=== PATIENT | female | born 1950 | race Caucasian/White ===

== ENCOUNTER 2020-06-05 06:11 | Outpatient (REF) | payer MEDICARE, SELFPAY ==
[2020-06-05 06:58] LABS: MANUAL DIFF FLAG NO
[2020-06-05 07:05] LABS: Basophils Absolute Auto 0.1 X10*3/uL (0.0-0.2); Basophils Percent Auto 0.9 % (0-2); Eosinophils Absolute Auto 0.5 X10*3/uL (0.0-0.4); Eosinophils Percent Auto 7.6 % (0-4); Hematocrit 41.1 % (37-47); Hemoglobin 14.1 g/dl (12.0-16.0); Imm Gran Abs Auto 0.02 X10*3/uL (0.00-0.03); Imm Gran Pct Auto 0.3 % (0.0-0.4); Lymphocytes Absolute Auto 2.9 X10*3/uL (1.2-4.9); Lymphocytes Percent Auto 43.2 % (20-40); Mean Corpuscular HGB Conc 34.3 g/dl (31.0-35.0); Mean Corpuscular Hemoglobin 31.5 pg (27.0-33.0); Mean Corpuscular Volume 91.9 fL (80-98); Mean Platelet Volume 10.2 fL (9.4-12.3); Monocytes Absolute Auto 0.7 X10*3/uL (0.1-1.2); Monocytes Percent Auto 10.8 % (2-11); Neutrophils Absolute Auto 2.5 X10*3/uL (2.0-8.3); Neutrophils Percent Auto 37.2 % (45-73); Platelet Count 396 X10*3/uL (160-400); Red Blood Count 4.47 X10*6/uL (4.20-5.50); Red Cell Distribution Width 12.5 % (11.0-16.0); White Blood Count 6.7 X10*3/uL (4.8-10.8)
[2020-06-05 07:09] LABS: Glucose Urine UA NEG (NEG); Leukocyte Esterase Urine NEG (NEG); Nitrite Urine NEG (NEG); PH 5.5 (5.0-8.0); Urine Blood 1+ (NEG); Urine Ketones NEG (NEG); Urine Protein NEG (NEG-TRACE)
[2020-06-05 07:12] LABS: Appearance Urine CLEAR; Color Urine YELLOW
[2020-06-05 07:16] LABS: Squamous Epithelial Cell Urine TRACE /LPF; WBC Urine 0-2 /HPF (0-4)
[2020-06-05 07:41] LABS: Alanine Aminotransferase 18 U/L (0-31); Albumin Level 4.3 g/dL (3.5-5.0); Alkaline Phosphatase 45 U/L (39-117); Anion Gap 13 (12-20); Aspartate Amino Transferase 22 U/L (5-31); Bilirubin Total 0.7 mg/dL (0.0-1.0); Blood Urea Nitrogen 11 mg/dL (9-16); Calcium 9.6 mg/dL (8.4-10.2); Carbon Dioxide 29 mmol/L (22-29); Chloride 101 mmol/L (96-108); Cholesterol 204 mg/dL; Estimated Glomerular Filt Rate > 60; Glucose Random 88 mg/dL (60-115); HDL Cholesterol 57 mg/dL; LDL Cholesterol Calculated 117 mg/dl; Potassium 3.8 mmol/L (3.3-5.1); Sodium 139 mmol/L (135-145); Total Protein 7.2 g/dL (6.5-8.0); Triglycerides 151 mg/dL
[2020-06-05 08:03] LABS: Free T4 (Free Thyroxine) 0.97 ng/dL (0.71-1.85); Thyroid Stimulating Hormone 3.42 uIU/mL (0.32-4.0); Vitamin D 25-OH Total 46.4 ng/mL (>30)
[2020-06-05 09:03] LABS: Folate 6.1 ng/mL (> or = 4.0); Vitamin B12 315 pg/mL (200-900)
== END 2020-06-05 06:12 | disposition home or self-care (01) ==
LOC: HO.LAB 06:11
PROVIDERS: PCP Internal Medicine; Visit Provider Internal Medicine
DX: E78.00 Pure hypercholesterolemia, unspecified (principal); H81.10 Benign paroxysmal vertigo, unspecified ear
CPT/HCPCS: 36415; 80053; 80061; 81001; 82306; 82607; 82746; 84439; 84443; 85025

== ENCOUNTER 2020-07-17 06:02 | Outpatient (REF) | payer MEDICARE, SELFPAY ==
--- NOTE | ~2020-07-17 | XR_ITS ---
EXAMINATION: XR ABDOMEN KUB CLINICAL INDICATION: Hematuria COMPARISON: Lumbar spine x-ray October 2008 TECHNIQUE: AP view of the abdomen. FINDINGS: Evaluation for renal stone is limited due to overlying bowel gas. No renal stone is seen. There is a 3 x 5 mm density to the right of the superior endplate of the L4 vertebral body above the transverse process. This is not seen on previous lumbar spine MRI x-ray October 2008. This has a lucent center and is more suggestive of a phlebolith than stone. There are bilateral pelvic calcifications probably representing calcified phleboliths. There is stool throughout the colon. There are no dilated loops of bowel. Bony structures are unremarkable. XR/XR KUB IMPRESSION: 3 x 5 mm calcification to the right of the L4 vertebral body questionable for phlebolith versus right ureteral stone. Small pelvic calcifications probably representing calcified phleboliths.
[2020-07-17 07:12] LABS: Urine Cytology See Pathology rpt
[2020-07-17 07:29] LABS: Glucose Urine UA NEG (NEG); Leukocyte Esterase Urine 1+ (NEG); Nitrite Urine NEG (NEG); Specific Gravity - Urine 1.015 (1.005-1.025); Urine Blood 1+ (NEG); Urine Ketones NEG (NEG); Urine Protein NEG (NEG-TRACE)
[2020-07-17 07:30] LABS: Appearance Urine CLEAR; Color Urine YELLOW
[2020-07-17 07:39] LABS: Squamous Epithelial Cell Urine TRACE /LPF
== END 2020-07-17 06:03 | disposition home or self-care (01) ==
LOC: HO.LAB 06:02
PROVIDERS: PCP Internal Medicine; Visit Provider Internal Medicine
DX: R31.9 Hematuria, unspecified (principal)
CPT/HCPCS: 74018; 81001; 88112

== ENCOUNTER → 2020-07-29 08:33 | Outpatient (REF) | payer MEDICARE, SELFPAY ==
--- NOTE | 2020-07-29 08:36 | CA_ITS ---
Acquisition Time: 2020-07-29 08:46:33 Total Exercise Time: 00:05:02 Test Indications: DIZZINESS Medications: ATROVASTIN Protocol: MARVIN Max HR: 155 BPM 104% of Pred: 148 BPM Max BP: 130/070 mmHG Max Work Load: 5.5 METS Exercise stress test using Marvin protocol, total of 5 min 2 sec. Pt. c/o SOB and dizziness in peak exercise. No CP. EKG without arrhythmias, no ischemic changes, however pt's dizzines and dyspnea should be further investigated. Normotensive response to exercise. Test reviewed with Dr. Mckinney. Referred By: Tiffany Hinson Overread By: Halle Ackerman NP
== END ==
LOC: HO.CARD 08:33
PROVIDERS: PCP Internal Medicine; Visit Provider Internal Medicine
DX: R42 Dizziness and giddiness (principal)
CPT/HCPCS: 93017; 93018

== ENCOUNTER → 2020-10-09 08:03 | Outpatient (REF) | payer MEDICARE, SELFPAY ==
--- NOTE | 2020-10-09 08:10 | CA_ITS ---
Transthoracic Echocardiogram Patient (Last, First, Middle): Renetta Law A Gender: Female Date of : 1950 Age: 70 Procedure Date: 10/09/2020 Procedure Type: Transthoracic Echocardiogram Location: OP Height: 160.02 cm Weight: 61.23 kg BSA: 1.64 m2 Heart Rate: bpm BP: 116 / 66 mmHg Cardiology Manager: Referring MD: Tiffany Hinson MD Symptoms: R42 - Dizziness and giddiness Study Quality: Good ECG Rhythm: Sinus Conclusions: - The left ventricular systolic function is normal. The visually estimated ejection fraction is between 60-65%. - There is mild aortic valve regurgitation. Findings Left Ventricle Normal left ventricular cavity size. There is normal left ventricular wall thickness. The left ventricular systolic function is normal. The visually estimated ejection fraction is between 60-65%. There is no evidence of regional wall motion abnormalities. Diastolic function is normal for age. Right Ventricle Normal right ventricular cavity size and systolic function. Atria Both atria are normal in size. There is a prominent eustachian valve. (normal variant). Aortic Valve The aortic valve was not well visualized. There is no aortic valve stenosis. There is mild aortic valve regurgitation. Mitral Valve The mitral valve appears normal. There is trace mitral valve regurgitation. There is no mitral valve stenosis. Pulmonic Valve The pulmonic valve was not well visualized. Tricuspid Valve Normal tricuspid valve structure. There is trace tricuspid valve regurgitation. The pulmonary artery systolic pressure is normal. Great Vessels The asc aorta is normal in size. Venous The inferior vena cava is normal in size and collapses greater than 50% with inspiration. Pericardium/Pleural There is no evidence of pericardial effusion. Prior Study Comparison No prior study available for comparison. Measurements 2D Linear Measurements IVSd: 1.02 0.6-0.9/0.6-1.0 cm LVIDd: 3.41 3.9-5.3/4.2-5.9 cm LVIDs: 2.24 2.0-3.6 cm LVPWd: 0.96 0.7-1.1 cm Ao Root: 3.05 2.1-3.5 cm LV Mass: 121.10 67-162/88-224 g LVOT Diam: 1.97 3.0+(-)1.3 cm Mitral Valve MV Pk E: 0.63 MV PK A: 0.69 MV Decel Time: 258.81 E/A: 0.92 E'Lateral: 0.09 E'Medial: 0.08 Decel [place]: 2.45 Aortic Valve AoV Pk Massimo: 1.19 AoV Mn Massimo: 0.91 AoV VTI: 0.32 AoV Pk Grad: 5.68 Aov Mn Grad: 3.75 LVOT LVOT Pk Massimo: 0.92 LVOT Mn Massimo: 0.55 LVOT VTI: 0.23 LVOT Pk Grad: 3.36 LVOT Mn Grad: 1.52 LVOT Diam: 1.97 LVOT Area: 3.06 Diastolic Function MV Pk E: 0.63 MV Pk A: 0.69 E/A: 0.92 E'Medial: 0.08 E' Laterial: 0.09 Tricuspid Valve TR Pk Massimo: 2.25 TR Pk Grad: 20.23 RA Press: 3.00 RVSP: 23.00 Great Vessels Aorta Ao Root-2D: 3.05 2.0-3.7 cm Pulmonary Valve PV Pk Massimo: 0.98 Peak PV Grad: 3.85 Updated in Other Vendor System with Status of Final Hero Fuentes MD electronically signed on 10/09/2020 11:23:29 AM with status of Final
== END ==
LOC: HO.CARD 08:03
PROVIDERS: PCP Internal Medicine; Visit Provider Internal Medicine
DX: R42 Dizziness and giddiness (principal)
CPT/HCPCS: 93306

== ENCOUNTER 2021-01-21 10:45 | Outpatient (REF) | payer MEDICARE, SELFPAY ==
--- NOTE | ~2021-01-21 | XR_ITS ---
EXAMINATION: XR CHEST CLINICAL INFORMATION: Calculus of kidney. COMPARISON: None TECHNIQUE: 2 views of the chest were obtained. FINDINGS: No significant abnormality is noted involving the heart, lungs, mediastinum, bony thorax or soft tissues. Surgical clips are noted in the left axilla. XR/XR chest 2V IMPRESSION: No acute intrathoracic disease.
== END 2021-01-21 10:46 | disposition home or self-care (01) ==
LOC: HO.XRAY 10:45
PROVIDERS: PCP Internal Medicine; Visit Provider Internal Medicine
DX: N20.0 Calculus of kidney (principal)
CPT/HCPCS: 71046

== ENCOUNTER 2021-02-07 07:49 | Outpatient (REF) | payer MEDICARE, SELFPAY ==
--- NOTE | ~2021-02-07 | US_ITS ---
EXAMINATION: US RETROPERITONEAL LIMITED (RENAL ONLY) CLINICAL INFORMATION: Calculus of kidney. COMPARISON: KUB 07/17/2020. TECHNIQUE: Real-time imaging of the kidneys. FINDINGS: RIGHT KIDNEY: 10.1 x 5.6 x 5.1 cm (SAG x AP x TRV). The kidney is normal in size, contour, and echogenicity. Renal cortical thickness is normal. No calculi or focal parenchymal lesions. No hydronephrosis. LEFT KIDNEY: 10.3 x 6.0 x 4.2 cm (SAG x AP x TRV). The kidney is normal in size, contour, and echogenicity. Renal cortical thickness is normal. No calculi or focal parenchymal lesions. No hydronephrosis. US/US renal BI IMPRESSION: Normal renal ultrasound.
== END 2021-02-07 07:50 | disposition home or self-care (01) ==
LOC: HO.US 07:49
PROVIDERS: PCP Internal Medicine; Visit Provider Internal Medicine
DX: N20.0 Calculus of kidney (principal)
CPT/HCPCS: 76775

== ENCOUNTER 2021-05-02 09:34 | Outpatient (REF) | payer MEDICARE, SELFPAY | END 2021-05-02 09:35 | disposition home or self-care (01) | LOC: HO.MAMMO 09:34 | PROVIDERS: PCP Internal Medicine; Visit Provider Internal Medicine | DX: Z13.89 Encounter for screening for other disorder (principal) ==

== ENCOUNTER 2021-05-23 06:24 | Outpatient (REF) | payer MEDICARE, SELFPAY ==
[2021-05-23 06:41] LABS: MANUAL DIFF FLAG NO
[2021-05-23 07:10] LABS: Basophils Absolute Auto 0.1 X10*3/uL (0.0-0.2); Basophils Percent Auto 0.8 % (0-2); Eosinophils Absolute Auto 0.3 X10*3/uL (0.0-0.4); Eosinophils Percent Auto 3.7 % (0-4); Hematocrit 38.3 % (37.0-47.0); Hemoglobin 12.9 g/dl (12.0-16.0); Imm Gran Abs Auto 0.03 X10*3/uL (0.00-0.03); Imm Gran Pct Auto 0.4 % (0.0-0.4); Lymphocytes Absolute Auto 2.9 X10*3/uL (1.2-4.9); Lymphocytes Percent Auto 37.5 % (20-40); Mean Corpuscular HGB Conc 33.7 g/dl (31.0-35.0); Mean Corpuscular Hemoglobin 31.6 pg (27.0-33.0); Mean Corpuscular Volume 93.9 fL (80.0-98.0); Mean Platelet Volume 9.2 fL (9.4-12.3); Monocytes Absolute Auto 0.8 X10*3/uL (0.1-1.2); Monocytes Percent Auto 9.7 % (2-11); Neutrophils Absolute Auto 3.7 x10*3/uL (2.0-8.3); Neutrophils Percent Auto 47.9 % (45-73); Platelet Count 400 X10*3/uL (160-400); Red Blood Count 4.08 X10*6/uL (4.20-5.50); Red Cell Distribution Width 12.5 % (11.0-16.0); White Blood Count 7.8 X10*3/uL (4.8-10.8)
[2021-05-23 07:27] LABS: Alanine Aminotransferase 14 U/L (0-31); Alkaline Phosphatase 49 U/L (39-117); Anion Gap 13 (12-20); Aspartate Amino Transferase 17 U/L (5-31); Bilirubin Total 0.4 mg/dL (0.0-1.0); Blood Urea Nitrogen 12 mg/dL (9-16); Calcium 10.1 mg/dL (8.4-10.2); Carbon Dioxide 30 mmol/L (22-29); Chloride 101 mmol/L (96-108); Cholesterol 220 mg/dL; Estimated Glomerular Filt Rate > 60; Glucose Random 92 mg/dL (60-115); HDL Cholesterol 55 mg/dL; LDL Cholesterol Calculated 144 mg/dl; Potassium 4.6 mmol/L (3.3-5.1); Sodium 139 mmol/L (135-145); Total Protein 6.8 g/dL (6.5-8.0); Triglycerides 108 mg/dL
[2021-05-23 07:39] LABS: Appearance Urine CLEAR; Color Urine YELLOW; Glucose Urine UA NEG (NEG); Leukocyte Esterase Urine NEG (NEG); Nitrite Urine NEG (NEG); PH 6.5 (5.0-8.0); Specific Gravity - Urine <= 1.005 (1.005-1.025); Urine Blood 1+ (NEG); Urine Ketones NEG (NEG); Urine Protein NEG (NEG-TRACE)
[2021-05-23 07:50] LABS: Free T4 (Free Thyroxine) 0.89 ng/dL (0.71-1.85); Thyroid Stimulating Hormone 3.52 uIU/mL (0.32-4.0); Vitamin D 25-OH Total 32.9 ng/mL (>30)
[2021-05-23 08:00] LABS: Squamous Epithelial Cell Urine TRACE /LPF; WBC Urine 0-2 /HPF (0-4)
[2021-05-23 09:40] LABS: Folate 6.2 ng/mL (> or = 4.0); Vitamin B12 991 pg/mL (200-900)
== END 2021-05-23 06:25 | disposition home or self-care (01) ==
LOC: HO.LAB 06:24
PROVIDERS: PCP Internal Medicine; Visit Provider Internal Medicine
DX: E78.00 Pure hypercholesterolemia, unspecified (principal)
CPT/HCPCS: 36415; 80053; 80061; 81001; 82306; 82607; 82746; 84439; 84443; 85025

== ENCOUNTER 2021-06-20 08:08 | Outpatient (REF) | payer MEDICARE, SELFPAY ==
--- NOTE | ~2021-06-20 | MM_ITS ---
EXAMINATION: BONE DENSITOMETRY CLINICAL INDICATION: Other specified disorders of bone density and structure, unspecified site. COMPARISON: Previous BD dated 06/14/2019 and baseline BD dated 05/09/2015. TECHNIQUE: Using a Original DXA System (software version: 13.1) manufactured by [employer], dual-energy x-ray absorptiometry was performed of the lumbar spine and left hip. The images are of good technical quality. Summary results are attached. FINDINGS: AP SPINE L1-L4: Current: BMD 0.966 g/cm2, Z-score 0.1, T-score -1.8, osteopenia, 1.3% increase from previous, 9.5% increase from baseline (<5% change is not significant). Prior: BMD 0.954 g/cm2. Baseline: BMD 0.882 g/cm2. LEFT FEMUR, NECK: Current: BMD 0.902 g/cm2, Z-score 0.9, T-score -1.0, normal. Prior: BMD 0.891 g/cm2. Baseline: BMD 0.856 g/cm2. LEFT FEMUR, TOTAL: Current: BMD 0.922 g/cm2, Z-score 1.0, T-score -0.7, normal, 2.7% increase from previous, 6.3% increase from baseline (<5% change is not significant). Prior: BMD 0.898 g/cm2. Baseline: BMD 0.867 g/cm2. IDENTIFIED RISK FACTORS: Menopause. Hysterectomy. Bilateral oophorectomy. HISTORY OF FRACTURE: None listed. MEDICATIONS: Bisphosphonates. MM/XR DEXA axial skeleton IMPRESSION: 1. DIAGNOSIS: Osteopenia based on the lowest T-score value of -1.8 in the lumbar spine applying World Health Organization criteria. 2. 10-YEAR FRACTURE RISK PREDICTION, FRAX: Major osteoporotic fracture (clinical spine, forearm, hip or shoulder) 9.1%. Hip fracture 1.2%. 3. Treatment Recommendations: NOF guidelines recommend consideration for treatment in postmenopausal women and men age 50 and older presenting with the following: -A hip or vertebral (clinical or morphometric) fracture. -T-score less than or equal to -2.5 at the femoral neck or spine after appropriate evaluation to exclude secondary causes. -Low bone mass at the hip or spine and a 10-year fracture probability by FRAX of greater than or equal to 3% for hip fracture or greater than or equal to 20% for major osteoporotic fracture based on the [place] adapted WHO algorithm. 4. Other Recommendations: All treatment decisions require clinical judgment and consideration of individual patient factors, including patient preferences, comorbidities, previous drug use, risk factors not captured in the FRAX model (e.g. frailty, falls, vitamin D deficiency, increased bone turnover, interval significant decline in bone density) and possible under or overestimation of fracture risk by FRAX. Additional medical evaluation for secondary cause of low bone mineral density may be appropriate. FUTURE SCAN RECOMMENDATION: People with diagnosed cases of osteoporosis or at high risk for fracture should have regular bone mineral density tests. For patients eligible for Medicare, routine testing is allowed once every 2 years. The testing frequency can be increased to one year for patients who have rapidly progressing disease, those who are receiving or discontinuing medical therapy to restore bone mass, or have additional risk factors.
== END 2021-06-20 08:09 | disposition home or self-care (01) ==
LOC: HO.MAMMO 08:08
PROVIDERS: Visit Provider Internal Medicine
DX: M81.0 Age-related osteoporosis without current pathological fracture (principal); Z78.0 Asymptomatic menopausal state; Z90.722 Acquired absence of ovaries, bilateral; Z90.710 Acquired absence of both cervix and uterus
CPT/HCPCS: 77080

== ENCOUNTER 2022-05-06 06:33 | Outpatient (REF) | payer MEDICARE, SELFPAY ==
[2022-05-06 06:48] LABS: MANUAL DIFF FLAG NO
[2022-05-06 07:26] LABS: Basophils Absolute Auto 0.1 X10*3/uL (0.0-0.2); Basophils Percent Auto 1.1 % (0-2); Eosinophils Absolute Auto 0.2 X10*3/uL (0.0-0.4); Eosinophils Percent Auto 3.6 % (0-4); Hemoglobin 13.2 g/dl (12.0-16.0); Imm Gran Abs Auto 0.01 X10*3/uL (0.00-0.03); Imm Gran Pct Auto 0.2 % (0.0-0.4); Lymphocytes Absolute Auto 2.7 X10*3/uL (1.2-4.9); Lymphocytes Percent Auto 42.2 % (20-40); Mean Corpuscular HGB Conc 33.8 g/dl (31.0-35.0); Mean Corpuscular Hemoglobin 30.8 pg (27.0-33.0); Mean Corpuscular Volume 91.1 fL (80.0-98.0); Mean Platelet Volume 9.7 fL (9.4-12.3); Monocytes Absolute Auto 0.7 X10*3/uL (0.1-1.2); Monocytes Percent Auto 10.9 % (2-11); Neutrophils Absolute Auto 2.7 x10*3/uL (2.0-8.3); Platelet Count 384 X10*3/uL (160-400); Red Blood Count 4.28 X10*6/uL (4.20-5.50); Red Cell Distribution Width 12.8 % (11.0-16.0); White Blood Count 6.4 X10*3/uL (4.8-10.8)
[2022-05-06 07:55] LABS: Alanine Aminotransferase 14 U/L (0-31); Albumin Level 4.2 g/dL (3.5-5.0); Alkaline Phosphatase 51 U/L (39-117); Anion Gap 14 (12-20); Aspartate Amino Transferase 17 U/L (5-31); Bilirubin Total 0.6 mg/dL (0.0-1.0); Blood Urea Nitrogen 14 mg/dL (9-16); Calcium 9.7 mg/dL (8.4-10.2); Carbon Dioxide 24 mmol/L (22-29); Chloride 105 mmol/L (96-108); Cholesterol 221 mg/dL; Estimated Glomerular Filt Rate 57; Glucose Random 83 mg/dL (60-115); HDL Cholesterol 59 mg/dL; LDL Cholesterol Calculated 142 mg/dl; Sodium 139 mmol/L (135-145); Total Protein 6.9 g/dL (6.5-8.0); Triglycerides 102 mg/dL
[2022-05-06 08:03] LABS: Appearance Urine Clear; Color Urine Yellow; Glucose Urine UA Negative (Negative); Leukocyte Esterase Urine Moderate (2+) (Negative); Nitrite Urine Negative (Negative); Specific Gravity - Urine 1.015 (1.005-1.025); UMIC TRIGGER UA YES; Urine Blood Small (1+) (Negative); Urine Ketones Negative (Negative); Urine Protein Negative (Neg-Trace)
[2022-05-06 08:22] LABS: Bacteria Urine None Seen (None Seen); Hyaline Casts Urine 0-2 /LPF (0-2); Squamous Epithelial Cell Urine 0-2 /HPF (0-2); WBC Urine 0-5 /HPF (0-5)
[2022-05-06 08:25] LABS: Folate 5.3 ng/mL (> or = 4.0); Free T4 (Free Thyroxine) 1.01 ng/dL (0.71-1.85); Thyroid Stimulating Hormone 3.81 uIU/mL (0.32-4.0); Vitamin B12 906 pg/mL (200-900); Vitamin D 25-OH Total 32.7 ng/mL (>30)
== END 2022-05-06 06:34 | disposition home or self-care (01) ==
LOC: HO.LAB 06:33
PROVIDERS: PCP Internal Medicine; Referring Provider Internal Medicine Rheumatology; Visit Provider Internal Medicine
DX: E78.00 Pure hypercholesterolemia, unspecified (principal)
CPT/HCPCS: 36415; 80053; 80061; 81001; 82306; 82607; 82746; 84439; 84443; 85025

== ENCOUNTER 2022-06-03 14:42 | Outpatient (REF) | payer MEDICARE, SELFPAY ==
[2022-06-03 16:23] LABS: Urine Cytology See Pathology rpt
== END 2022-06-03 14:43 | disposition home or self-care (01) ==
LOC: HO.LAB 14:42
PROVIDERS: PCP Internal Medicine; Visit Provider Urology
DX: R31.9 Hematuria, unspecified (principal)
CPT/HCPCS: 51798; 88112; 99202

== ENCOUNTER 2022-06-24 10:14 | Outpatient (REF) | payer MEDICARE, SELFPAY ==
--- NOTE | ~2022-06-24 | CT_ITS ---
EXAMINATION: CT ABDOMEN AND PELVIS WITHOUT AND WITH CONTRAST CLINICAL INFORMATION: Hematuria COMPARISON: None available. TECHNIQUE: Multidetector volumetric imaging was performed of the superior aspects of the kidneys and pelvis before and after the IV administration of 85 mL of Omnipaque 350 intravenous contrast. Sagittal and coronal reformatted images were obtained on the technologist's workstation. This CT examination was performed using dose optimization techniques as appropriate, variously including the following: *Automated exposure control *Adjustment of mA and/or kV according to patient size (this includes techniques or standardized protocols for targeted exams where dose is matched to indication/reason for exam; i.e. extremities or head) *Use of iterative reconstruction technique DLP: 662 mGy-cm FINDINGS: LUNG BASES: The visualized lung bases are unremarkable. LIVER, GALLBLADDER, AND BILIARY TREE: Visualized portions of the liver are unremarkable. The gallbladder is unremarkable with no evidence of radiopaque gallstones, gallbladder wall thickening, or obvious pericholecystic inflammatory changes. PANCREAS: Unremarkable SPLEEN: Visualized portions of the spleen are unremarkable. ADRENAL GLANDS: Unremarkable KIDNEYS AND URETERS: No hydronephrosis or nephrolithiasis. No abnormal mass or obstructing lesion along the course of the ureters. Bilateral renal collecting systems. BLADDER: Decompressed. GASTROINTESTINAL TRACT: Colonic diverticulosis no CT findings of diverticulitis. Appendix is within normal limits. ABDOMINAL WALL: No significant hernia is appreciated. LYMPH NODES: Normal VASCULAR: Atherosclerotic calcifications, no aneurysmal dilation. PELVIC VISCERA: Unremarkable OSSEOUS STRUCTURES: Degenerative changes of the spine. CT/CT abdomen pelvis wo/w IV con IMPRESSION: No hydronephrosis or nephrolithiasis. No abnormal mass or obstructing lesion along the course of the ureters. Please note, this negative study does not obviate the need for cystoscopy if clinically warranted.
[2022-06-24] MEDS: iohexoL 350 MG/ML 100 ML INFUS..BTL IV (12:04)
[2022-06-24 12:20] LABS: Creatinine POC 0.9 mg/dL (0.5-1.4); GFR POC > 60
== END 2022-06-24 10:15 | disposition home or self-care (01) ==
LOC: HO.CT 10:14
PROVIDERS: PCP Internal Medicine; Visit Provider Urology
DX: R31.9 Hematuria, unspecified (principal)
CPT/HCPCS: 74178; 82565; Q9967

== ENCOUNTER → 2022-07-24 13:19 | Outpatient (BNVA) | payer MEDICARE, SELFPAY | PROVIDERS: PCP Internal Medicine; Visit Provider Urology | DX: N95.2 Postmenopausal atrophic vaginitis (principal); R31.29 Other microscopic hematuria | CPT/HCPCS: 52000 ==

== ENCOUNTER 2023-02-10 09:09 | Outpatient (AMB) | payer MEDICARE, SELFPAY ==
--- NOTE | 2023-02-10 09:20 | AM.OFFVISNUR ---
Intake Intake Visit Reasons: flu Shot Allergies No Known Allergies Allergy (Verified 07/24/22 13:32) Office Procedures Flu Questionnaire Does the patient have a severe egg allergy?: No Does the patient have severe life threatening allergies?: No Does the patient have a fever or illness today?: No Has the patient ever had Guillain-Matamoras Syndrome?: No Has the patient ever had any past reaction to a flu shot?: No Immunizations flu vacc [id number] 6mos up(PF) 60 mcg(15 mcgx4)/0.5 mL IM syringe Performing Provider: Tiffany Hinson MD Performing Location: [facility] Administered by: Yanique Hill RN on 02/10/23 09:20 Dose Route Admin Location Dispensed Lot Number Expiration Date NDC Guillotine Trimmer 0.5 mL IM Right Deltoid 0.5 mL [id number] 10/03/23 35843-764-25 [employer] VIS Given Date VIS Provided VIS Publication Date 02/10/23 Single Vaccine 20 Eligibility Eligibility Date Funding Source Not [facility] Eligible 02/10/23 Private Coding Assessment & Plan Assessment & Plan Orders: Orders Influenza [id number] Immunization Today Z23 - Encounter for immunization
== END 2023-02-10 09:21 | disposition home or self-care (01) ==
PROVIDERS: PCP Internal Medicine; Visit Provider Internal Medicine
DX: Z23 Encounter for immunization (principal)
CPT/HCPCS: 90471; 90686

== ENCOUNTER 2023-04-22 06:49 | Outpatient (REF) | payer MEDICARE, SELFPAY ==
[2023-04-22 06:57] LABS: MANUAL DIFF FLAG NO
[2023-04-22 07:46] LABS: Basophils Absolute Auto 0.1 X10*3/uL (0.0-0.2); Basophils Percent Auto 0.8 % (0-2); Eosinophils Absolute Auto 0.2 X10*3/uL (0.0-0.4); Eosinophils Percent Auto 2.5 % (0-4); Hematocrit 39.6 % (37.0-47.0); Hemoglobin 13.5 g/dl (12.0-16.0); Imm Gran Abs Auto 0.02 X10*3/uL (0.00-0.03); Imm Gran Pct Auto 0.3 % (0.0-0.4); Lymphocytes Absolute Auto 3.8 X10*3/uL (1.2-4.9); Lymphocytes Percent Auto 52.2 % (20-40); Mean Corpuscular HGB Conc 34.1 g/dl (31.0-35.0); Mean Corpuscular Hemoglobin 31.5 pg (27.0-33.0); Mean Corpuscular Volume 92.5 fL (80.0-98.0); Mean Platelet Volume 9.8 fL (9.4-12.3); Monocytes Absolute Auto 0.7 X10*3/uL (0.1-1.2); Monocytes Percent Auto 9.9 % (2-11); Neutrophils Absolute Auto 2.5 x10*3/uL (2.0-8.3); Neutrophils Percent Auto 34.3 % (45-73); Platelet Count 395 X10*3/uL (160-400); Red Blood Count 4.28 X10*6/uL (4.20-5.50); Red Cell Distribution Width 12.6 % (11.0-16.0); White Blood Count 7.2 X10*3/uL (4.8-10.8)
[2023-04-22 07:50] LABS: Appearance Urine Clear; Color Urine Yellow; Glucose Urine UA Negative (Negative); Leukocyte Esterase Urine Small (1+) (Negative); Nitrite Urine Negative (Negative); Specific Gravity - Urine 1.015 (1.005-1.025); UMIC TRIGGER UA YES; Urine Blood Small (1+) (Negative); Urine Ketones Negative (Negative); Urine Protein Negative (Neg-Trace)
[2023-04-22 08:07] LABS: Bacteria Urine None Seen (None Seen); Hyaline Casts Urine 0-2 /LPF (0-2); Squamous Epithelial Cell Urine 0-2 /HPF (0-2); WBC Urine 0-5 /HPF (0-5)
[2023-04-22 08:24] LABS: Alanine Aminotransferase 19 U/L (0-31); Albumin Level 4.3 g/dL (3.5-5.0); Alkaline Phosphatase 48 U/L (39-117); Anion Gap 12 (12-20); Aspartate Amino Transferase 21 U/L (5-31); Bilirubin Total 0.7 mg/dL (0.0-1.0); Blood Urea Nitrogen 14 mg/dL (9-16); Calcium 10.3 mg/dL (8.4-10.2); Carbon Dioxide 26 mmol/L (22-29); Chloride 105 mmol/L (96-108); Cholesterol 209 mg/dL (<200); Estimated Glomerular Filt Rate > 60; Glucose Random 81 mg/dL (60-115); HDL Cholesterol 61 mg/dL (>40); LDL Cholesterol Calculated 128 mg/dL (<100); Potassium 3.5 mmol/L (3.3-5.1); Sodium 139 mmol/L (135-145); Total Protein 7.5 g/dL (6.5-8.0); Triglycerides 104 mg/dL (<150)
[2023-04-22 08:45] LABS: Free T4 (Free Thyroxine) 0.92 ng/dL (0.71-1.85); Thyroid Stimulating Hormone 3.77 uIU/mL (0.32-4.0)
[2023-04-22 08:47] LABS: Folate 11.6 ng/mL (> or = 4.0); Vitamin B12 494 pg/mL (200-900)
== END 2023-04-22 06:50 | disposition home or self-care (01) ==
LOC: HO.LAB 06:49
PROVIDERS: PCP Internal Medicine; Visit Provider Internal Medicine
DX: E78.00 Pure hypercholesterolemia, unspecified (principal); N20.0 Calculus of kidney
CPT/HCPCS: 36415; 80053; 80061; 81001; 82607; 82746; 84439; 84443; 85025

== ENCOUNTER 2023-05-05 09:02 | Outpatient (AMB) | payer MEDICARE, SELFPAY ==
[2023-05-05 09:04] VITALS: BP 108/62; PULSE 70; O2SAT 98; BMI 23.6
--- NOTE | 2023-05-05 09:04 | A.OFFPC_ITS ---
Vital Signs 05/05/23 09:04 Height 5 ft 3 in Weight 133 lb 0.2 oz BMI 23.6 BP 108/62 Blood Pressure Location Lt brachial Position Sitting Pulse 70 Pulse Source Pulse Oximeter Pulse Oximetry (%) 98 Oxygen Delivery Method Room Air Intake Visit Reasons: PE Intake Note: Patient is here today for a physical. Rn Medication Required: No Allergies No Known Allergies Allergy (Verified 05/05/23 09:04) Medication List - Last Reconciled 05/05/23 by Tiffany Hinson MD alendronate 70 mg PO QWEEK atorvastatin 20 mg PO DAILY 90 days docosanol 10% (Abreva) 1 appl topical BID meloxicam 7.5 mg PO DAILY omeprazole 20 mg PO QAM vitamin B comp and C no.3 (B Complex Plus Vitamin C) 1 cap PO DAILY Tobacco use date assessed: 05/05/23 Fall risk assessment: No Falls in past year Last assessed Fall Risk: 05/05/23 Dental Screening Dental Screen Date: 05/05/23 Did you have a dental visit in the last 12 months?: Yes Did you have a dental problem in the last 6 months where you did not have access to dental care?: No Was dental information given to patient?: Patient has dentist HPI PE HPI Details 73-year-old female with GERD, hyperchole sterolemia history of nephrolithiasis osteoporosis coming in for physical exam last seen in April 2022. Patient is here for physical exam. Mammogram is due, colonoscopy is due, bone density is up-to-date. Review of the notes has seen urology cystoscopy done has a history of microscopic hematuria cytology negative cystoscopy no bladder lesions in July 2022 CT scan showing no hydronephrosis or nephrolithiasis no mass will continue to monitor. cough, irritating throat phlegm, feels queezy and near faint2 months once a day, , am mostly, , no sob, , , occ BPV but happened while sitting in the office with close eyes for a minute, no bladder symtoms PFSH Medical History (Updated 05/05/23 @ 09:47 by Tiffany Hinson MD) Abnormal screening mammogram GERD (gastroesophageal reflux disease) Osteoporosis History of breast cancer Hypercholesterolemia Surgical History History of elbow surgery History of total abdominal hysterectomy and bilateral salpingo-oophorectomy Hx of total mastectomy of left breast Family History Father No problems noted. Mother Hypertension Stroke Maternal Grandmother Myocardial infarction Maternal Aunt Breast cancer Maternal Uncle Lung cancer Social History (Updated 05/05/23 @ 09:35 by Tiffany Hinson MD) Housing: House Alcohol intake: current Alcohol intake frequency: 3 or more drinks per day Alcohol type: beer and wine Comment: once a week 1 drinks Patient Tobacco Use Status: Never used Tobacco e-Cigarette/Vaping Use: Never Used Second Hand Smoke Exposure: No service: No Current occupational status: retired Cognitive needs: No Hearing needs: No Vision needs: Yes Questionnaire PHQ-9 Over the last 2 weeks, how often have you been bothered by any of the following problems? 1. Little interest or pleasure in doing things: not at all 2. Feeling down, depressed, or hopeless: not at all 3. Trouble falling or staying asleep, or sleeping too much: not at all 4. Feeling tired or having little energy: not at all 5. Poor appetite or overeating: not at all 6. Feeling bad about yourself - or that you are a failure or have let yourself or your family down: not at all 7. Trouble concentrating on things, such as reading the newspaper or watching television: not at all 8. Moving or speaking so slowly that other people could have noticed. Or the opposite - being so fidgety or restless that you have been moving around a lot more than usual: not at all 9. Thoughts that you would be better off or of hurting yourself in some way: not at all Total score: 0 Depression Screening Interpretation: Negative Depression Screening Done: Yes Source: Developed by Drs. Mega Guevara, Karyna Kulkarni, Humberto Magana and colleagues, with an educational suma from [employer]. Thrive Questionnaire Date Thrive assessed: 05/05/23 I am a: Patient What is your living situation today?: I have a steady place to live Within the past 12 months, did the food you bought not last and you didn't have the money to get more?: Never true Within the past 12 months, did you worry whether your food would run out before you got money to buy more?: Never true Do you have trouble paying for medicines?: No Do you have trouble getting transportation to medical appointments?: No Do you have trouble paying your heating and electricity bill?: No Do you have trouble taking care of your child, family member or friend?: No Do you have trouble with day-to-day activities such as bathing, preparing meals, shopping, managing finances, etc.?: No Are you currently unemployed and looking for a job?: No Are you interested in more education?: No Please select the resources that you would like help with: None THRIVE Score: 0 AUDIT C Alcohol Use Questionnaire (AUDIT-C) 1. How often do you have a drink containing alcohol?: 2-4 times a month (wine) 2. How many drinks containing alcohol do you have on a typical day when you are drinking?: 1 or 2 3. How often do you have six or more drinks on one occasion?: Never Total Score: 2 SHIVANI-7 AMB Questionnaire SHIVANI-7 Date SHIVANI - 7 assessed: 05/05/23 Feeling nervous, anxious, or on edge: 0 = Not at all Not being able to stop or control worryin = Not at all Worrying too much about different things: 0 = Not at all Trouble relaxin = Not at all Being so restless that it is hard to sit still: 0 = Not at all Becoming easily annoyed or irritable: 0 = Not at all Feeling afraid as if something awful might happen: 0 = Not at all Total SHIVANI-7 score (0-4 normal; 5-9 mild; 10-14 moderate; 15-21 severe): 0 Source: Developed by Drs. Mega Guevara, Karyna Kulkarni, Humberto Magana and colleagues, with an educational suma from [employer]. Review of Systems Const Denies poor appetite and Denies weakness Eyes Denies no additional complaints ENT Reports Normal hearing present, Denies dizziness, Denies nasal congestion, Denies tinnitus and Denies sore throat Card Denies chest pain, Denies syncope, Denies rapid heart rate and Denies dyspnea Resp Denies cough and Denies dyspnea GI Denies change in stool character, Reports constipation, Denies diarrhea, Denies nausea and Denies vomiting Denies urinary frequency, Denies difficulty voiding and Denies dysuria Neuro Reports Normal hearing present, Denies confusion, Denies dizziness, Denies syncope and Denies weakness Psych Denies confusion Physical exam (Primary Care) Vital Signs: Last Vital Signs Pulse 70 05/05/23 09:04 BP 108/62 05/05/23 09:04 Pulse Ox 98 05/05/23 09:04 Oxygen Delivery Method Room Air 05/05/23 09:04 BMI result Body Mass Index 23.6 Tobacco/Smoking Status: Tobacco use Status Tobacco use date assessed 05/05/23 05/05/23 09:06 Patient Tobacco Use Status Never used Tobacco 05/05/23 09:06 e-Cigarette/Vaping Use Never Used 05/05/23 09:06 PHQ-9: PHQ-9 Score PHQ-9: Total score 0 05/05/23 09:06 Depression Screening Interpretation: Negative Thrive Assessment: Date of Thrive Assessment Date Thrive assessed 05/05/23 05/05/23 09:06 Const General: alert and awake; No confusion Orientation/consciousness: No confusion HENMT Head: Yes normocephalic Ears: external ears normal and TM's normal bilaterally Face and sinus: Yes normal facial exam Mouth: moist mucous membranes Throat: Yes tonsils normal Eyes Conjunctivae: conjunctivae normal Pupils: Equal, round and reactive pupils present and Pupil accommodation reflex normal Direct Ophthalmoscopy: normal light reflex Neck Neck: No lymphadenopathy Thyroid: Thyroid normal Chest Chest palpation & inspection: normal inspection of the chest Resp Effort & Inspection: normal respiratory effort and no audible wheezes Auscultation: clear to auscultation bilaterally, no crackles, no wheezes and lung sounds not diminished Cardio Rate: regular rate Rhythm: regular rhythm Peripheral pulses: radial pulses present and dorsalis pedis present GI Palpation (GI): no masses Auscultation: normal bowel sounds and normoactive bowel sounds Rectal Exam - Female: deferred Skin General skin exam: no rashes or lesions noted Rashes: no rashes Neuro General: deep tendon reflexes 2+ bilaterally and No confusion Cranial nerves: Yes Equal, round and reactive pupils present, Yes Midline tongue present, Yes Normal hearing present and Yes Ability to bilaterally elevate shoulders present Cognition (Neuro): normal cognition Gait exam (Neuro): Normal gait present Motor exam (neuro): 5/5 motor strength present throughout Deep tendon reflexes (DTR's): Right brachioradialis reflex intensity grade: 2+, Left brachioradialis reflex intensity grade: 2+, Right patellar reflex intensity grade: 2+ and Left patellar reflex intensity grade: 2+ Extrem General: No edema Assessment and Plan Assessment & Plan (1) Annual physical exam: Code(s): Z00.00 - Encounter for general adult medical examination without abnormal findings (2) Colon cancer screening: Code(s): Z12.11 - Encounter for screening for malignant neoplasm of colon Plan: Reminded patient about colonoscopy (3) Osteoporosis: Comment: July 2021 Code(s): M81.0 - Age-related osteoporosis without current pathological fracture Plan: Bone density is up-to-date on alendronate (4) Hypercholesterolemia: Code(s): E78.00 - Pure hypercholesterolemia, unspecified Plan: Avoid fried foods, chicken skin, eggs, butter margarine, pastries and meat. Be it pork or beef they have a lot of cholesterol takes atorvastatin 10 mg once a day (5) GERD (gastroesophageal reflux disease): Code(s): K21.9 - Gastro-esophageal reflux disease without esophagitis Qualifiers: Esophagitis presence: without esophagitis Qualified Code(s): K21.9 - Gastro-esophageal reflux disease without esophagitis Plan: Avoid the foods that causes that usually spicy foods, tomato products, juices, c offee, soda and foods that your sensitive to. After eating do not lie down, allow 3-4 hours before in lie down. And keep the head of bed above 30 degrees to avoid the acid from going up. (6) Microscopic hematuria: Code(s): R31.29 - Other microscopic hematuria Plan: Patient follows up with urology CT scan negative (7) Chest pain: Code(s): R07.9 - Chest pain, unspecified (8) Throat irritation: Code(s): J39.2 - Other diseases of pharynx (9) Near syncope: Code(s): R55 - Syncope and collapse Orders: Orders US carotid duplex BI Today R55 - Syncope and collapse ECG 3 day holter monitor Today R55 - Syncope and collapse ECG 12 lead EKG Today R07.9 - Chest pain, unspecified CA stress test Today R07.9 - Chest pain, unspecified Referrals Gastroenterology Referral Z12.11 - Encounter for screening for malignant neoplasm of colon Medications: New loratadine (Claritin) 10 mg PO DAILY 30 tabs 0RF J39.2 - Other diseases of pharynx Coding Level of Care Code Est Pt Prev Care >65y(38743) Diagnoses Annual physical exam Z00.00 Colon cancer screening Z12.11 Osteoporosis M81.0 Hypercholesterolemia E78.00 Gastroesophageal reflux disease without esophagitis K21.9 Esophagitis presence: without esophagitis Microscopic hematuria R31.29 Chest pain R07.9 Throat irritation J39.2 Near syncope R55
== END 2023-05-05 09:54 | disposition home or self-care (01) ==
PROVIDERS: Visit Provider Internal Medicine
DX: Z00.00 Encounter for general adult medical examination without abnormal findings (principal); Z12.11 Encounter for screening for malignant neoplasm of colon; M81.0 Age-related osteoporosis without current pathological fracture; E78.00 Pure hypercholesterolemia, unspecified; K21.9 Gastro-esophageal reflux disease without esophagitis; R31.29 Other microscopic hematuria; R07.9 Chest pain, unspecified; J39.2 Other diseases of pharynx; R55 Syncope and collapse
CPT/HCPCS: 99397

== ENCOUNTER 2023-05-12 13:43 | Outpatient (REF) | payer MEDICARE, SELFPAY ==
--- NOTE | ~2023-05-12 | US_ITS ---
EXAMINATION: US EXTRACRANIAL CAROTID DUPLEX, BILATERAL CLINICAL INFORMATION: syncope and collapse COMPARISON: None available. TECHNIQUE: Real-time ultrasound and Doppler techniques (integrating B-mode 2-D vascular images, Doppler spectral analysis and color-flow Doppler imaging) were utilized to interrogate the extracranial carotid arteries, the vertebral arteries and proximal subclavian arteries bilaterally. The degree of stenosis is determined by criteria similar to NASCET. FINDINGS: Right Side: 1. There is mild atherosclerotic plaque seen in the bifurcation/proximal ICA region. 2. The common carotid artery PSV proximally is 72 cm/s and distally 70 cm/s. 3. The proximal internal carotid artery velocities are 57 cm/s systolic and 19 cm/s diastolic. 4. The proximal external carotid artery PSV is 68 cm/s. 5. The vertebral artery shows antegrade flow. 6. The subclavian artery waveforms are normal. Left Side: 1. There is no atherosclerotic plaque seen in the bifurcation/proximal ICA region. 2. The common carotid artery PSV proximally is 89 cm/s and distally 86 cm/s. 3. The proximal internal carotid artery velocities are 77 cm/s systolic and 23 cm/s diastolic. 4. The proximal external carotid artery PSV is 99 cm/s. 5. The vertebral artery shows antegrade flow. 6. The subclavian artery waveforms are normal. US/US carotid duplex BI IMPRESSION: 1. RIGHT: Minimal, non-hemodynamically significant stenosis of the proximal right internal carotid artery corresponding to a 0-49% stenosis by velocity criteria. 2. LEFT: Normal left internal carotid artery without atherosclerotic plaque or hemodynamically significant stenosis.
== END 2023-05-12 13:44 | disposition home or self-care (01) ==
LOC: HO.HMGCX 13:43
PROVIDERS: PCP Internal Medicine; Visit Provider Internal Medicine
DX: R55 Syncope and collapse (principal)
CPT/HCPCS: 93880

== ENCOUNTER → 2023-05-25 08:49 | Outpatient (REF) | payer MEDICARE, SELFPAY ==
--- NOTE | 2023-05-25 08:53 | CA_ITS ---
Acquisition Time: 2023-05-25 09:23:39 Total Exercise Time: 00:02:31 Test Indications: SYNCOPE Medications: ALENDRONATE ATORVASTATIN METFORMIN OMEPRAZOLE Protocol: MARVIN Max HR: 137 BPM 94% of Pred: 145 BPM Max BP: 134/078 mmHG Max Work Load: 4.6 METS Exercise stress test exercise 2 min 31 of Marvin protocol achieving 94% MPHR, with moderate to severe SOB, 3/10 left sided chest ache, without arrhythmias, with normotensive response to exercise, with sdcooping in leads 2, 3, aVF, V4-V6. with nondiagnsoitiic EKGs. CHest ache and breathing returned to normal with rest. Test reviewed with Dr. Mckinney. Starting BP 126/78 HR78 Referred By: Tiffany Hinson Overread By: Lia Hoffmann
--- NOTE | 2023-05-25 08:53 | HM_ITS ---
Conclusion: 1. Patient was monitored for total period of 2 days and 23 hours 2. Baseline was predominantly sinus rhythm with average heart of 75 beats per minute 3. Very brief episode of atrial fibrillation lasting about 12 minutes noted 4. Occasional PVCs noted 5. No significant pauses noted 6. Patient reported 10 events most of which correlating sinus rhythm, 1 event correlating with isolated PVC MTDD
--- NOTE | 2023-05-25 08:53 | ECG_ITS ---
Test Reason : cp syncope Blood Pressure : / mmHG Vent. Rate : 081 BPM Atrial Rate : 081 BPM P-R Int : 164 ms QRS Dur : 076 ms QT Int : 356 ms P-R-T Axes : 028 059 046 degrees QTc Int : 413 ms Normal sinus rhythm Normal ECG When compared with ECG of 21-OCT-2015 07:53, No significant change was found Referred By: Tiffany Hinson Electronically Signed By:ANTON SYLVESTER MD
== END ==
LOC: HO.CARD 08:49
PROVIDERS: PCP Internal Medicine; Visit Provider Internal Medicine
DX: R07.9 Chest pain, unspecified (principal); R55 Syncope and collapse
CPT/HCPCS: 93005; 93017; 93242

== ENCOUNTER → 2023-05-25 08:53 | Outpatient (BNV) | payer MEDICARE, SELFPAY | PROVIDERS: PCP Internal Medicine; Visit Provider Internal Medicine Cardiovascular Disease | DX: I48.91 Unspecified atrial fibrillation (principal) | CPT/HCPCS: 93010; 93016; 93018; 93244 ==

== ENCOUNTER 2023-06-04 09:36 | Outpatient (AMB) | payer MEDICARE, SELFPAY ==
[2023-06-04 09:38] VITALS: BP 122/68; PULSE 66; O2SAT 100; BMI 23.7
--- NOTE | 2023-06-04 09:38 | MHC.PC.OV ---
Vital Signs 06/04/23 09:38 Height 5 ft 3 in Weight 134 lb 0.2 oz BMI 23.7 BP 122/68 Blood Pressure Location Lt brachial Position Sitting Pulse 66 Pulse Source Pulse Oximeter Pulse Oximetry (%) 100 Oxygen Delivery Method Room Air Intake Visit Reasons: Per Dr Hinson Handle Bender Required: No Allergies No Known Allergies Allergy (Verified 06/04/23 09:38) Tobacco use date assessed: 06/04/23 Fall risk assessment: No Falls in past year Last assessed Fall Risk: 06/04/23 Dental Screening Dental Screen Date: 06/04/[address] Hinson HPI Details 73-year-old female with osteoporosis hypercholesterolemia GERD coming in for follow-up last seen in April 2023. Patient's colonoscopy is due bone density is up-to-date and due for June. Stress test done 05/25/2023 exercise stress test 2 minutes and 31 seconds August protocol 94% heart rate moderate to severe shortness of breath 3/10 left-sided chest pain without arrhythmias with normotensive response to exercise with scooping leads 2 3 AVF V4 to V6 nondiagnostic EKG Holter done showing sinus rhythm no pauses no AV block. Carotid Dopplers minimal non hemodynamically significant stenosis in the right with normal left. [facility] [place] Medical History (Updated 06/02/23 @ 16:36 by Tiffany Hinson MD) Abnormal screening mammogram GERD (gastroesophageal reflux disease) Osteoporosis History of breast cancer Hypercholesterolemia Surgical History History of elbow surgery History of total abdominal hysterectomy and bilateral salpingo-oophorectomy Hx of total mastectomy of left breast Family History Father No problems noted. Mother Hypertension Stroke Maternal Grandmother Myocardial infarction Maternal Aunt Breast cancer Maternal Uncle Lung cancer Social History (Updated 05/05/23 @ 09:35 by Tiffany Hinson MD) Housing: House Alcohol intake: current Alcohol intake frequency: 3 or more drinks per day Alcohol type: beer and wine Comment: once a week 1 drinks Patient Tobacco Use Status: Never used Tobacco e-Cigarette/Vaping Use: Never Used Second Hand Smoke Exposure: No service: No Current occupational status: retired Cognitive needs: No Hearing needs: No Vision needs: Yes Questionnaire Thrive Questionnaire Date Thrive assessed: 05/05/23 I am a: Patient What is your living situation today?: I have a steady place to live Within the past 12 months, did the food you bought not last and you didn't have the money to get more?: Never true Within the past 12 months, did you worry whether your food would run out before you got money to buy more?: Never true Do you have trouble paying for medicines?: No Do you have trouble getting transportation to medical appointments?: No Do you have trouble paying your heating and electricity bill?: No Do you have trouble taking care of your child, family member or friend?: No Do you have trouble with day-to-day activities such as bathing, preparing meals, shopping, managing finances, etc.?: No Are you currently unemployed and looking for a job?: No Are you interested in more education?: No Please select the resources that you would like help with: None THRIVE Score: 0 AUDIT C Alcohol Use Questionnaire (AUDIT-C) 1. How often do you have a drink containing alcohol?: 2-4 times a month (wine) 2. How many drinks containing alcohol do you have on a typical day when you are drinking?: 1 or 2 3. How often do you have six or more drinks on one occasion?: Never Total Score: 2 SHIVANI-7 AMB Questionnaire SHIVANI-7 Date SHIVANI - 7 assessed: 05/05/23 Source: Developed by Drs. Mega Guevara, Karyna Kulkarni, Humberto Magana and colleagues, with an educational suma from [employer]. Physical exam (Primary Care) Vital Signs: Last Vital Signs Pulse 66 06/04/23 09:38 BP 122/68 06/04/23 09:38 Pulse Ox 100 06/04/23 09:38 Oxygen Delivery Method Room Air 06/04/23 09:38 BMI result Body Mass Index 23.7 Tobacco/Smoking Status: Tobacco use Status Tobacco use date assessed 06/04/23 06/04/23 09:39 Patient Tobacco Use Status Never used Tobacco 06/04/23 09:39 e-Cigarette/Vaping Use Never Used 06/04/23 09:39 Thrive Assessment: Date of Thrive Assessment Date Thrive assessed 05/05/23 06/04/23 09:39 Const General: alert; No acute distress Eyes Conjunctivae: conjunctivae normal Resp Auscultation: clear to auscultation bilaterally Cardio Rate: regular rate Rhythm: regular rhythm GI Inspection: Yes normal to inspection Extrem General: Yes normal to inspection and No edema Assessment and Plan Assessment & Plan (1) Atrial fibrillation: Comment: May 2023 on Holter Code(s): I48.91 - Unspecified atrial fibrillation Plan: Patient is advised to see Cardiology (2) Hypercholesterolemia: Code(s): E78.00 - Pure hypercholesterolemia, unspecified Plan: Avoid fried foods, chicken skin, eggs, butter margarine, pastries and meat. Be it pork or beef they have a lot of cholesterol on atorvastatin 20 mg once a day (3) GERD (gastroesophageal reflux disease): Code(s): K21.9 - Gastro-esophageal reflux disease without esophagitis Qualifiers: Esophagitis presence: without esophagitis Qualified Code(s): K21.9 - Gastro-esophageal reflux disease without esophagitis Plan: Reflux (4) Osteoporosis: Comment: July 2021 Code(s): M81.0 - Age-related osteoporosis without current pathological fracture Plan: Advised to get bone density in July 2023 Orders: Orders CA echo transthoracic complete Today I48.91 - Unspecified atrial fibrillation Referrals Cardiology Referral I48.91 - Unspecified atrial fibrillation Coding Level of Care Code Est Pt Level 4 (50088) Diagnoses Atrial fibrillation I48.91 Hypercholesterolemia E78.00 Gastroesophageal reflux disease without esophagitis K21.9 Esophagitis presence: without esophagitis Osteoporosis M81.0
== END 2023-06-04 11:41 | disposition home or self-care (01) ==
PROVIDERS: PCP Internal Medicine; Visit Provider Internal Medicine
DX: I48.91 Unspecified atrial fibrillation (principal); E78.00 Pure hypercholesterolemia, unspecified; K21.9 Gastro-esophageal reflux disease without esophagitis; M81.0 Age-related osteoporosis without current pathological fracture
CPT/HCPCS: 99214

== ENCOUNTER → 2023-06-30 07:42 | Outpatient (REF) | payer MEDICARE, SELFPAY ==
--- NOTE | ~2023-06-30 | NM_ITS ---
Myocardial perfusion study Indication: Chest pain to evaluate for myocardial ischemia Technique: The patient was brought in for a Lexiscan perfusion study on 06/30/2023. Patient performed low-level exercise and was injected 0.4 mg of Lexiscan intravenously. Within a minute of injection, 25 mCi of sestamibi was given intravenously. Images were obtained using the SPECT gamma camera interlaced with the gating device. Images were obtained in supine position. Resting perfusion study was performed on 07/01/2023. Patient was administered 25 mCi of sestamibi intravenously at rest. Images were then obtained in supine position. Images obtained with and without CT attenuation. Total DLP 124 my-cm Images were processed with the software and compared side to side in short axis, horizontal long axis and vertical long axis views. Findings: Resting perfusion images especially attenuated corrected images are suboptimal due to intense subdiaphragmatic uptake interfering with the myocardial uptake. The stress perfusion study showed both attenuated as well as non attenuated corrected images show normal uptake of radiotracer in all segments of LV myocardium. The gated study shows normal LV systolic function with calculated LVEF of greater than 60%. LV cavity is normal in size. The gated study shows normal systolic wall thickening and contraction of segments. Resting study shows non attenuated images show normal uptake of radiotracer in all segments of LV myocardium. Gating at rest reveals normal systolic wall motion with ejection fraction at 73%. The findings are consistent with normal myocardial perfusion. NM/NM cardiolite stress test Impression: 1. Myocardial perfusion imaging study shows normal myocardial perfusion 2. Gated LVEF is 73% 3. Transient ischemic dilatation not present EKG is nondiagnostic for ischemia
--- NOTE | 2023-06-30 07:46 | CA_ITS ---
Acquisition Time: 2023-06-30 07:55:38 Total Exercise Time: 00:02:00 Test Indications: CP Medications: SEE H Protocol: LEXISCAN Max HR: 137 BPM 94% of Pred: 145 BPM Max BP: 120/068 mmHG Max Work Load: 1.0 METS Pharmacoloigcal stress test with Lexiscan injection while sitting and kicking her legs, without anginal symptoms, with isolated PVC, with normotenisve response to injection, with nondiagnoisitic EKGs. Aminophyliine 75mg IVP given to reverse Lexiscan. Nuclear images pending. Test reviewed with Dr Clinton. Referred By: Tiffany Hinson Overread By: Lia Hoffmann
== END ==
LOC: HO.CARD 07:42
PROVIDERS: PCP Internal Medicine; Visit Provider Internal Medicine
DX: R07.9 Chest pain, unspecified (principal)
CPT/HCPCS: 78452; 93017; A9500; J0280; J2785

== ENCOUNTER → 2023-06-30 07:46 | Outpatient (BNV) | payer MEDICARE, SELFPAY | PROVIDERS: PCP Internal Medicine; Visit Provider Nurse Practitioner | DX: R07.9 Chest pain, unspecified (principal) | CPT/HCPCS: 78452; 93016; 93018 ==

== ENCOUNTER → 2023-07-05 07:42 | Outpatient (REF) | payer MEDICARE, SELFPAY ==
--- NOTE | 2023-07-05 07:45 | CA_ITS ---
Transthoracic Echocardiogram Patient (Last, First, Middle): Renetta Law A Gender: Female Date of : 1950 Age: 73 Procedure Date: 07/05/2023 Procedure Type: Transthoracic Echocardiogram Location: OP Height: 160.02 cm Weight: 59.88 kg BSA: 1.62 m2 Heart Rate: bpm BP: 116 / 70 mmHg Communications Department Head: ANTONIO Referring MD: Tiffany Hinson MD Translator/Interpreter: Gregory Mckinney MD Symptoms: I48.91 - Unspecified atrial fibrillation Study Quality: Adequate ECG Rhythm: Sinus Conclusions: - 1. Normal LV ejection fraction of 60 65% with grade 1 diastolic dysfunction 2. Mild aortic regurgitation 3. Mildly dilated ascending aorta 3.7 cm 4. Normal RV systolic pressure 5. No gross pericardial effusion Findings Left Ventricle Normal left ventricular size, thickness, and systolic function. The visually estimated ejection fraction is between 60-65%. Spectral Doppler is indicative of an impaired relaxation filling pattern. E/E prime ratio is <8, consistent with normal filling pressures. Evidence suggests grade I (mild) diastolic dysfunction. Peak GLS is -21.5%, within normal limits. Right Ventricle Normal right ventricular cavity size and systolic function. Atria Both atria are normal in size. There is no evidence of interatrial shunt. Aortic Valve There is mild calcification of the aortic valve. There is no aortic valve stenosis. There is mild aortic valve regurgitation. Mitral Valve Normal mitral valve structure and function. There is trace mitral valve regurgitation. There is no mitral valve stenosis. Pulmonic Valve The pulmonic valve is likely normal. There is trace to mild pulmonic valve regurgitation. Tricuspid Valve Normal tricuspid valve structure. There is mild tricuspid valve regurgitation. The right ventricular systolic pressure is normal. The right ventricular systolic pressure is 24 mmHg. Normal right atrial pressure. There is no evidence of pulmonary hypertension. Great Vessels The pulmonary artery was not well visualized. There is mild dilatation of the ascending aorta measuring 3.70 cm. Venous The inferior vena cava is normal in size and collapses greater than 50% with inspiration. Pericardium/Pleural There is no evidence of pericardial effusion. Measurements 2D Linear Measurements IVSd: 0.87 0.6-0.9/0.6-1.0 cm LVIDd: 3.58 3.9-5.3/4.2-5.9 cm LVIDd Index: 2.21 2.4-3.2/2.2-3.1 cm/m2 LVIDs: 2.19 2.0-3.6 cm LVPWd: 0.84 0.7-1.1 cm LA Diam: 3.20 2.7-3.8/3.0-4.0 cm LAIDs Index: 1.98 1.5-2.3 cm/m2 LV Mass: 105.54 67-162/88-224 g LV Mass Index: 65.15 43-95/49-115 g/m2 LVOT Diam: 1.90 3.0+(-)1.3 cm 2D Systolic Function EF 4C: 64.90 >55% EF 2C: 67.40 >55% EF BiP: 64.50 >55% Mitral Valve MV Pk E: 0.66 MV PK A: 0.81 MV Decel Time: 312.00 E/A: 0.80 E'Lateral: 12.70 E'Medial: 8.70 E/E' Med: 7.60 E/E' Lat: 5.20 PHT: 91.00 MVA PHT: 2.42 Decel Caswell: 2.13 Aortic Valve AoV Pk Massimo: 1.28 AoV Mn Massimo: 0.84 AoV VTI: 0.27 AoV Pk Grad: 7.00 Aov Mn Grad: 3.00 ANIKET Cont.VTI: 2.29 LVOT LVOT Pk Massimo: 1.13 LVOT Mn Massimo: 0.76 LVOT VTI: 0.22 LVOT Pk Grad: 5.00 LVOT Mn Grad: 3.00 LVOT Diam: 1.90 LVOT Area: 2.84 Diastolic Function MV Pk E: 0.66 MV Pk A: 0.81 E/A: 0.80 E'Medial: 8.70 E/E' Med: 7.60 E' Laterial: 12.70 E/E' Lat: 5.20 Right Ventricle TAPSE (mm): 25.70 TVS' Massimo: 10.40 Tricuspid Valve TR Pk Massimo: 2.27 TR Pk Grad: 21.00 RA Press: 3.00 RVSP: 24.00 Great Vessels Aorta Sinus of Valsalva: 2.65 2.0-3.[address] [place]: 2.48 1.7-3.4 cm Ao Asc: 3.70 2.1-3.4 cm Updated in Other Vendor System with Status of Final Gregory Mckinney MD electronically signed on 07/05/2023 12:00:09 PM with status of Final
== END ==
LOC: HO.CARD 07:42
PROVIDERS: PCP Internal Medicine; Visit Provider Internal Medicine
DX: I48.91 Unspecified atrial fibrillation (principal)
CPT/HCPCS: 93306; 93356

== ENCOUNTER → 2023-07-05 07:45 | Outpatient (BNV) | payer MEDICARE, SELFPAY | PROVIDERS: PCP Internal Medicine; Visit Provider Internal Medicine Cardiovascular Disease | DX: I48.91 Unspecified atrial fibrillation (principal) | CPT/HCPCS: 93306; 93356 ==

== ENCOUNTER 2023-07-14 10:12 | Outpatient (AMB) | payer MEDICARE, SELFPAY ==
--- NOTE | 2023-07-14 10:17 | A.OFFVIS_ITS ---
Intake Vital Signs 07/14/23 10:19 Height 5 ft 3 in Weight 135 lb BMI 23.9 BP 127/62 Blood Pressure Location Lt brachial Position Sitting Pulse 64 Intake Visit Reasons: Colonoscopy Screening Intake Note: Patient new consult for 4th pre Colonoscopy screening. Patient denies any GI issues. 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 by: Self / Same As Patient Allergies No Known Allergies Allergy (Verified 07/14/23 10:17) Medication List - Last Reconciled 07/14/23 by Zee Alonzo PA-C alendronate 70 mg PO QWEEK atorvastatin 20 mg PO DAILY 90 days docosanol 10% (Abreva) 1 appl topical BID loratadine (Claritin) 10 mg PO DAILY meloxicam 7.5 mg PO DAILY omeprazole 20 mg PO QAM vitamin B comp and C no.3 (B Complex Plus Vitamin C) 1 cap PO DAILY HPI HPI Comments History of Present Illness Details A 73 y/o female here for colon screen consult- she was due at time of covid No GI complaints Normal bowel Good appetite- omeprazole for years-she has occ. dysphagia-she has never had an EGD She is just undergone several tests for cardiac concerns-she has not follow back at with Cardiology for results She has not had any chest pain, shortness of breath headaches dizziness nausea vomiting abdominal pain fever or chills [facility] Medical History (Updated 07/15/23 @ 10:30 by Zee Alonzo PA-C) Abnormal screening mammogram GERD (gastroesophageal reflux disease) Osteoporosis History of breast cancer Hypercholesterolemia Surgical History History of elbow surgery History of total abdominal hysterectomy and bilateral salpingo-oophorectomy Hx of total mastectomy of left breast Family History Father No problems noted. Mother Hypertension Stroke Maternal Grandmother Myocardial infarction Maternal Aunt Breast cancer Maternal Uncle Lung cancer Social History Housing: House Alcohol intake: current Alcohol intake frequency: 3 or more drinks per day Alcohol type: beer and wine Comment: once a week 1 drinks Patient Tobacco Use Status: Never used Tobacco e-Cigarette/Vaping Use: Never Used Second Hand Smoke Exposure: No service: No Current occupational status: retired Cognitive needs: No Hearing needs: No Vision needs: Yes Review of Systems Const All systems reviewed & are unremarkable except as noted in HPI and below Card Denies chest pain and Denies dyspnea Resp Denies dyspnea GI Denies abdominal pain and Reports heartburn Physical Exam Vital Signs: Last Vital Signs Pulse 64 07/14/23 10:19 BP 127/62 07/14/23 10:19 BMI result Body Mass Index 23.9 Const General: cooperative, healthy appearing, comfortable and no acute distress Orientation/consciousness: patient oriented x3 Limitations: no limitations Resp Effort & Inspection: normal respiratory effort and able to speak in complete sentences Auscultation: clear to auscultation bilaterally, no rales, no rhonchi and no wheezes Cardio Rate: regular rate Rhythm: regular rhythm Heart sounds: S1 normal heart sound present and S2 normal heart sound present GI Palpation (GI): Soft to palpation and nontender Auscultation: normal bowel sounds Skin General skin exam: no rashes or lesions noted Neuro General: patient oriented x3 Extrem General: Yes full ROM Psych Appearance: grossly normal and well kempt Mental Status: mental status grossly normal Speech and movement: Normal speech and movement present and Clear speech present Affect: normal affect Attitude: cooperative Thought process: Normal thought process present Thought content: Normal thought content present Insight: Good insight present (Psych) Judgement: Good judgement present (Psych) Results Reviewed Results Reviewed: CT/CT abdomen pelvis wo/w IV con IMPRESSION: No hydronephrosis or nephrolithiasis. No abnormal mass or obstructing lesion along the course of the ureters. NM/NM cardiolite stress test Impression: 1. Myocardial perfusion imaging study shows normal myocardial perfusion 2. Gated LVEF is 73% 3. Transient ischemic dilatation not present EKG is nondiagnostic for ischemia US/US carotid duplex BI IMPRESSION: 1. RIGHT: Minimal, non-hemodynamically significant stenosis of the proximal right internal carotid artery corresponding to a 0-49% stenosis by velocity criteria. 2. LEFT: Normal left internal carotid artery without atherosclerotic plaque or hemodynamically significant stenosis. Conclusion: 1. Patient was monitored for total period of 2 days and 23 hours 2. Baseline was predominantly sinus rhythm with average heart of 75 beats per minute 3. Very brief episode of atrial fibrillation lasting about 12 minutes noted 4. Occasional PVCs noted 5. No significant pauses noted 6. Patient reported 10 events most of which correlating sinus rhythm, 1 event correlating with isolated PVC Assessment & Plan Assessment & Plan (1) GERD (gastroesophageal reflux disease): Comment: Years omeprazole-intermittent dysphagia-never had EGD Code(s): K21.9 - Gastro-esophageal reflux disease without esophagitis Qualifiers: Esophagitis presence: without esophagitis Qualified Code(s): K21.9 - Gastro-esophageal reflux disease without esophagitis Plan: Recommend at least 1 time EGD-given history-when time appropriate (2) Colon cancer screening: Code(s): Z12.11 - Encounter for screening for malignant neoplasm of colon (3) Atrial fibrillation: Comment: May 2023 on Holter-reviewed brief episode noted will await cardiac input Code(s): I48.91 - Unspecified atrial fibrillation Plan: Awaiting follow-up with cardiac- Plan She will consult with cardiology-as she has not yet f/u after testing EGD/Colonoscopy- MG-pep Patient Instructions: Will await patient to follow-up after results with Cardiology She was given contact information she will call us Will schedule EGD colonoscop Discussed procedures, rare risk need for escort Will been send MiraLax Gatorade prep Encouraged to call questions or concerns Coding Level of Care Code New Pt Level 3 (26115) Diagnoses Gastroesophageal reflux disease without esophagitis K21.9 Esophagitis presence: without esophagitis Colon cancer screening Z12.11 Atrial fibrillation I48.91 Time Spent (min) 30
[2023-07-14 10:19] VITALS: BP 127/62; PULSE 64; BMI 23.9
== END 2023-07-14 15:23 | disposition home or self-care (01) ==
PROVIDERS: PCP Internal Medicine; Referring Provider Internal Medicine; Visit Provider Physician Assistant
DX: K21.9 Gastro-esophageal reflux disease without esophagitis (principal); Z12.11 Encounter for screening for malignant neoplasm of colon; I48.91 Unspecified atrial fibrillation
CPT/HCPCS: 99203

== ENCOUNTER → 2023-07-14 10:12 | Outpatient (BNVA) | payer MEDICARE, SELFPAY | PROVIDERS: PCP Internal Medicine; Visit Provider Physician Assistant | DX: Z12.11 Encounter for screening for malignant neoplasm of colon (principal); K21.9 Gastro-esophageal reflux disease without esophagitis; I48.91 Unspecified atrial fibrillation | CPT/HCPCS: 99202 ==

== ENCOUNTER 2023-07-21 12:44 | Outpatient (AMB) | payer MEDICARE, SELFPAY ==
[2023-07-21 12:53] VITALS: BP 120/74; PULSE 78; BMI 23.4
--- NOTE | 2023-07-21 12:53 | A.OFFVIS_ITS ---
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 She has a pleasant 73 year female with no significant past medical history extra for us history of orthostatic lightheadedness for a long time. She says she usually manages these symptoms by sitting down the symptoms are severe. Otherwise she continues to function normally. Recently she was having some symptoms of fatigue and tiredness and exertional shortness of breath. She underwent a Holter monitor which showed asymptomatic episode of atrial fibrillation that lasted for 12 minutes. She also had occasional PVCs. She is symptoms during this time which correlated with isolated PVCs and not with atrial fibrillation. She also had echocardiogram which showed normal LV ejection fraction with grade 1 diastolic dysfunction with mild aortic regurgitation mildly dilated ascending aorta. She underwent a stress test which was significantly positive for symptoms of severe shortness of breath with left- sided chest ache with EKG changes that were suggestive of ischemia. Myocardial perfusion imaging subsequently was within normal limits. Patient continues to have exertional shortness of breath over the last 1 year. She denies any ortho pnea, PND, leg edema. Denies any prolonged palpitations. [facility] Medical History (Updated 07/22/23 @ 16:44 by Gregory Mckinney MD) Abnormal screening mammogram GERD (gastroesophageal reflux disease) Osteoporosis History of breast cancer Hypercholesterolemia Surgical History History of elbow surgery History of total abdominal hysterectomy and bilateral salpingo-oophorectomy Hx of total mastectomy of left breast Family History Father No problems noted. Mother Hypertension Stroke Maternal Grandmother Myocardial infarction Maternal Aunt Breast cancer Maternal Uncle Lung cancer Social History Housing: House Alcohol intake: current Alcohol intake frequency: 3 or more drinks per day Alcohol type: beer and wine Comment: once a week 1 drinks Patient Tobacco Use Status: Never used Tobacco e-Cigarette/Vaping Use: Never Used Second Hand Smoke Exposure: No service: No Current occupational status: retired Cognitive needs: No Hearing needs: No Vision needs: Yes Review of Systems Const Denies chills, Denies daytime sleepiness, Denies fatigue, Denies fever(s), Denies frequent falls, Denies poor appetite, Denies snoring, Denies stops breathing during sleep, Denies weakness, Denies weight gain and Denies weight loss Eyes Denies loss of vision ENT Denies dizziness and Denies hearing loss Card Denies chest pain, Denies claudication, Denies leg edema, Denies lightheadedness, Denies palpitations, Denies dyspnea, Denies dyspnea on exertion and Denies orthopnea Resp Denies cough, Denies excessive phlegm production, Denies dyspnea, Denies dyspnea on exertion, Denies snoring and Denies wheezing GI Denies abdominal pain, Denies hematochezia, Denies change in bowel habits, Denies nausea and Denies vomiting Denies urinary frequency and Denies dysuria Musc Denies arthralgias, Denies muscle weakness, Denies numbness and Denies other (frequent falls) Skin/Breast Denies nail changes and Denies rash Neuro Denies Abnormal speech present, Denies dizziness, Denies frequent falls, Denies loss of vision, Denies memory loss, Denies numbness and Denies weakness Psych Denies depression and Denies memory loss Endo Denies fatigue and Denies palpitations Kobe/Lymph Reports easy bruising and Reports other (anemia) Aller/Immun Denies wheezing Physical Exam Vital Signs: Last Vital Signs Pulse 78 07/21/23 12:53 BP 120/74 07/21/23 12:53 BMI result Body Mass Index 23.4 Const General: cooperative, comfortable, no acute distress, well developed, alert, awake and Physically active Nutritional Appearance: well nourished and thin Orientation/consciousness: patient oriented x3 Limitations: no limitations HEENT Head: Yes normocephalic and Yes atraumatic Neck Neck: Yes trachea midline, Yes supple and Yes no JVD Resp Effort & Inspection: normal respiratory effort Auscultation: clear to auscultation bilaterally Cardio Jugular venous distension: no JVD Palpation: normal PMI Rate: regular rate Rhythm: regular rhythm Heart sounds: S1 normal heart sound present, S2 normal heart sound present, no click, no gallops, no murmurs and no rubs GI Auscultation: normal bowel sounds Skin General skin exam: no rashes or lesions noted Neuro General: patient oriented x3 and no focal motor deficits Speech: No Abnormal speech present Extrem General: Yes no clubbing, cyanosis or edema Psych Appearance: grossly normal Office Procedures EKG Details: EKG shows normal sinus rhythm nonspecific ST changes [id number], Complete Assessment & Plan Assessment & Plan (1) Paroxysmal atrial fibrillation: Code(s): I48.0 - Paroxysmal atrial fibrillation Category: Medical Plan: Patient with episodes of paroxysmal atrial fibrillation Holter monitor was done for symptoms of fatigue and lightheadedness. During these episodes patient was completely asymptomatic. Unknown duration or prior episodes of atrial fibrillation. Given asymptomatic nature of atrial fibrillation, it is possible that she has other episodes of atrial fibrillation the undetected. However suggest her to be started on oral anticoagulation therapy given her risk with CHADSVASc score of 3. She is agreeable. Advised to call me with any new symptoms that are pertinent to presence of atrial fibrillation. Avoid any other pharmacotherapy given her symptoms of orthostatic lightheadedness. (2) Near syncope: Code(s): R55 - Syncope and collapse Category: Medical Plan: Patient episode of near-syncope her most likely related to orthostatic lightheadedness. I discussed mechanism of orthostatic lightheadedness. We discussed about adequate hydration and increasing her fluid intake gradually. She understands agrees. Also advised to liberalize her salt intake. Advised to monitor blood pressure at home maintain a log. Orthostatic precautions were discussed. (3) SOB (shortness of breath) on exertion: Code(s): R06.02 - Shortness of breath Category: Medical Plan: Patient with exertional shortness of breath with abnormal stress test although myocardial perfusion imaging within normal limits, this concern for balanced ischemia. Would suggest her to undergo coronary CTA for further evaluation for symptoms given that she would low exercise capacity rate significant EKG changes. This was discussed with her. She is agreeable. Will follow up in the clinic after above-mentioned test. Thank you for allowing me to partake in the care Orders: Orders CT Cardiac Coronary Angio 2 Weeks Gregory Mckinney MD R06.02 - Shortness of breath Medications: New apixaban (Eliquis) 5 mg PO BID 60 tabs 5RF Gregory Mckinney MD Changed From omeprazole 20 mg PO QAM 90 caps 2RF To omeprazole 20 mg PO .everyother da Tiffany O PoMD
== END 2023-07-21 13:48 | disposition home or self-care (01) ==
PROVIDERS: PCP Internal Medicine; Visit Provider Internal Medicine Cardiovascular Disease
DX: I48.0 Paroxysmal atrial fibrillation (principal); R55 Syncope and collapse; R06.02 Shortness of breath
CPT/HCPCS: 93010; 99214

== ENCOUNTER → 2023-07-21 12:44 | Outpatient (BNVA) | payer MEDICARE, SELFPAY | PROVIDERS: PCP Internal Medicine; Visit Provider Internal Medicine Cardiovascular Disease | DX: I48.0 Paroxysmal atrial fibrillation (principal); R55 Syncope and collapse; R06.02 Shortness of breath | CPT/HCPCS: 93005; 99212 ==

== ENCOUNTER 2023-07-30 11:26 | Outpatient (REF) | payer MEDICARE, SELFPAY ==
[2023-07-30 17:59] LABS: Urine Cytology See Pathology rpt
== END 2023-07-30 11:27 | disposition home or self-care (01) ==
LOC: HO.LAB 11:26
PROVIDERS: Visit Provider Urology
DX: R31.29 Other microscopic hematuria (principal); R80.9 Proteinuria, unspecified
CPT/HCPCS: 81003; 88112; 99212

== ENCOUNTER 2023-07-30 11:26 | Outpatient (AMB) | payer MEDICARE, SELFPAY ==
--- NOTE | 2023-07-30 11:31 | A.OFFVIS_ITS ---
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 She states she is being worked up for cardiac issues, recently started Eliquis for atrial fibrillation. Denies any urinary symptoms. Urinalysis proteinuria. Will refer to Nephrology. Will send today's urine for cytology. Review of chart. 07/24/2022-- Renetta is a 72-year-old female who presents to the office for cystoscopy procedure and discussion of CT scan results. Evaluation today: Blood:1+, leukocytes: negative. Cystoscopy findings: No suspicious bladder lesion visualized. Pelvic exam: No prolapse noted, narrow introitus, and atrophic vaginitis. CTAP results reviewed?06/24/22-- Unremarkable findings. Will monitor the patient for microscopic hematuria. Follow-up after a year for urinalysis. 06/03/22--Renetta is a 72-year-old female who is here as a new patient evaluation for microscopic hematuria. Ordered for CAT scan. Urine cytology-- negative Past medical history left breast cancer status post mastectomy at age 35. Status post hysterectomy for endometriosis- 1998 She denies irritative voiding symptoms Review of her chart she did have urine cytology in 2020 which was negative Evaluation today: Urinalysis microscopic blood present, no signs of infection Plan urine cytology, CT scan with and without IV contrast follow-up office cystoscopy. [facility] Medical History Abnormal screening mammogram GERD (gastroesophageal reflux disease) Osteoporosis History of breast cancer Hypercholesterolemia Surgical History History of elbow surgery History of total abdominal hysterectomy and bilateral salpingo-oophorectomy Hx of total mastectomy of left breast Family History Father No problems noted. Mother Hypertension Stroke Maternal Grandmother Myocardial infarction Maternal Aunt Breast cancer Maternal Uncle Lung cancer Social History Housing: House Alcohol intake: current Alcohol intake frequency: 3 or more drinks per day Alcohol type: beer and wine Comment: once a week 1 drinks Patient Tobacco Use Status: Never used Tobacco e-Cigarette/Vaping Use: Never Used Second Hand Smoke Exposure: No service: No Current occupational status: retired Cognitive needs: No Hearing needs: No Vision needs: Yes Review of Systems Const All systems reviewed & are unremarkable except as noted in HPI and below Reports no additional complaints Eyes Reports no additional complaints ENT Reports no additional complaints Card Reports no additional complaints Resp Reports no additional complaints GI Reports no additional complaints Reports as per HPI Musc Reports no additional complaints Skin/Breast Reports system reviewed and no additional complaints, except as documented Neuro Reports no additional complaints Psych Reports no additional complaints Endo Reports no additional complaints Kobe/Lymph Reports no additional complaints Aller/Immun Reports no additional complaints Results AMB Urinalysis, Automated UA Leukoctes 0 Verna/uL Last Edit by ROBIN Encarnacion on 07/30/23 11:50 UA Nitrite Negative Last Edit by ROBIN Encarnacion on 07/30/23 11:50 UA Urobilinogen 0.2 mg/dL Last Edit by ROBIN Encarnacion on 07/30/23 11:5 0 UA Protein 15 mg/dL Last Edit by ROBIN Encarnacion on 07/30/23 11:50 UA pH 6.0 Last Edit by ROBIN Encarnacion on 07/30/23 11:50 UA Blood 80 Abel/uL Last Edit by ROBIN Encarnacion on 07/30/23 11:50 2+ Janeen Posadas 07/30/23 11:50 UA Specific Anton 1.015 Last Edit by ROBIN Encarnacion on 07/30/23 11: 50 UA Ketone Negative Last Edit by ROBIN Encarnacion on 07/30/23 11:50 UA Bilirubin 0 mg/dL Last Edit by ROBIN Encarnacion on 07/30/23 11:50 UA Glucose 0 mg/dL Last Edit by ROBIN Encarnacion on 07/30/23 11:50 Results Reviewed Results Reviewed: Laboratory Last Values Urine pH (Auto) 6.0 07/30/23 11:32 Specific Anton (Auto) 1.015 07/30/23 11:32 Urine Protein (Auto) 15 mg/dL 07/30/23 11:32 Glucose (UA)(Auto) 0 mg/dL 07/30/23 11:32 Urine Ketones (Auto) Negative 07/30/23 11:32 Urine Blood (Auto) 80 Abel/uL 07/30/23 11:32 Urine Nitrite (Auto) Negative 07/30/23 11:32 Urine Bilirubin (Auto) 0 mg/dL 07/30/23 11:32 Urine Urobilinogen (Auto) 0.2 mg/dL 07/30/23 11:32 Leukocyte Esterase (Auto) 0 Verna/uL 07/30/23 11:32 Assessment & Plan Assessment & Plan (1) Proteinuria: Code(s): R80.9 - Proteinuria, unspecified Category: Medical (2) Microscopic hematuria: Code(s): R31.29 - Other microscopic hematuria Category: Medical Plan Will refer to Nephrology. Will send today's urine for cytology. Cont. to monitor. FU in one year. Orders: Orders Urine Cytology 07/30/23 R31.29 - Other microscopic hematuria AMB Urinalysis Automated 07/30/23 Z13.9 - Encounter for screening, unspecified Referrals Nephrology Referral R80.9 - Proteinuria, unspecified Coding Level of Care Code Est Pt Level 3 (58800) Diagnoses Proteinuria R80.9 Microscopic hematuria R31.29
== END 2023-07-30 12:08 | disposition home or self-care (01) ==
PROVIDERS: Visit Provider Urology
DX: R80.9 Proteinuria, unspecified (principal); R31.29 Other microscopic hematuria
CPT/HCPCS: 99213

== ENCOUNTER 2023-08-20 09:09 | Outpatient (REF) | payer MEDICARE, SELFPAY ==
[2023-08-20 09:41] LABS: Urine Cytology See Pathology rpt
== END 2023-08-20 09:10 | disposition home or self-care (01) ==
LOC: HO.LAB 09:09
PROVIDERS: PCP Internal Medicine; Visit Provider Urology
DX: R80.9 Proteinuria, unspecified (principal); R31.29 Other microscopic hematuria; R31.9 Hematuria, unspecified
CPT/HCPCS: 87086; 88112

== ENCOUNTER 2023-08-31 11:37 | Outpatient (AMB) | payer MEDICARE, SELFPAY ==
--- NOTE | 2023-08-31 11:40 | A.OFFPC_ITS ---
Vital Signs 08/31/23 11:42 Height 5 ft 3 in Weight 129 lb 6 oz BMI 22.9 BP 120/70 Blood Pressure Location Lt brachial Position Sitting Pulse 85 Pulse Source Pulse Oximeter Pulse Oximetry (%) 97 Oxygen Delivery Method Room Air Intake Visit Reasons: chest pain, near syncope Intake Note: Patient is here to follow up on Chest pain and near syncope, lab results and stress test results. Compensation Supervisor Required: No Wire Stockkeeper: Not Required per policy Accompanied by: Self / Same As Patient Allergies No Known Allergies Allergy (Verified 08/31/23 11:41) Tobacco use date assessed: 08/31/23 Fall risk assessment: No Falls in past year Last assessed Fall Risk: 08/31/23 Dental Screening Dental Screen Date: 06/04/23 HPI chest pain, near syncope HPI Details 73-year-old female with a history of atr ial fibrillation h ypercholesterolemia GERD and osteoporosis last seen in 06/23/2023 mammogram is due this month colonoscopy is due bone density is due. Echocardiogram done 06/23/2023 normal ejection fraction with grade 1 diastolic dysfunction patient was seen also by Urology for follow-up on hematuria on anticoagulation has been advised urine cytology showing atypical urothelial cells. and a nephrology referral. Patient also follows up with Cardiology complains of orthostatic lightheadedness underwent Holter showing asymptomatic episodes of atrial fibrillation she had a stress test which showed positive symptoms of shortness of breath but myocardial perfusion imaging was within normal limits. Advised anticoagulation and coronary CTA mid november. [facility], [facility] Medical History (Updated 08/31/23 @ 11:51 by Tiffany Hinson MD) Dizziness Hematuria Upper back pain on left side Chest discomfort Throat irritation Chest pain Abnormal screening mammogram GERD (gastroesophageal reflux disease) Osteoporosis History of breast cancer Hypercholesterolemia Surgical History History of elbow surgery History of total abdominal hysterectomy and bilateral salpingo-oophorectomy Hx of total mastectomy of left breast Family History (Updated 08/31/23 @ 11:41 by ROBIN Pitts) Father No problems noted. Mother Hypertension Stroke Maternal Grandmother Myocardial infarction Maternal Aunt Breast cancer Maternal Uncle Lung cancer Social History Housing: House Alcohol intake: current Alcohol intake frequency: 3 or more drinks per day Alcohol type: beer and wine Comment: once a week 1 drinks Patient Tobacco Use Status: Never used Tobacco e-Cigarette/Vaping Use: Never Used Second Hand Smoke Exposure: No service: No Current occupational status: retired Cognitive needs: No Hearing needs: No Vision needs: Yes (Glasses) Questionnaire Thrive Questionnaire Date Thrive assessed: 05/05/23 SHIVANI-7 AMB Questionnaire SHIVANI-7 Date SHIVANI - 7 assessed: 05/05/23 Source: Developed by Drs. Mega Guevara, Karyna Kulkarni, Humberto Magana and colleagues, with an educational suma from [employer]. Physical exam (Primary Care) Vital Signs: Last Vital Signs Pulse 85 08/31/23 11:42 BP 120/70 08/31/23 11:42 Pulse Ox 97 08/31/23 11:42 Oxygen Delivery Method Room Air 08/31/23 11:42 BMI result Body Mass Index 22.9 Tobacco/Smoking Status: Tobacco use Status Tobacco use date assessed 08/31/23 08/31/23 11:48 Patient Tobacco Use Status Never used Tobacco 08/31/23 11:48 e-Cigarette/Vaping Use Never Used 08/31/23 11:48 Thrive Assessment: Date of Thrive Assessment Date Thrive assessed 05/05/23 08/31/23 11:48 Const General: alert; No acute distress Eyes Conjunctivae: conjunctivae normal Resp Auscultation: clear to auscultation bilaterally Cardio Rate: regular rate Rhythm: regular rhythm GI Inspection: Yes normal to inspection Extrem General: Yes normal to inspection and No edema Assessment and Plan Assessment & Plan (1) Paroxysmal atrial fibrillation: Code(s): I48.0 - Paroxysmal atrial fibrillation Plan: Patient has been started on anticoagulation with Eliquis 5 mg twice a day coronary and thing twice a day year (2) SOB (shortness of breath) on exertion: Code(s): R06.02 - Shortness of breath Plan: With the stress test coming up as negative patient follows up with Cardiology and has advised coronary CTA (3) Near syncope: Code(s): R55 - Syncope and collapse Plan: Continuing to monitor (4) Microscopic hematuria: Code(s): R31.29 - Other microscopic hematuria Plan: Patient has followed up with Urology and cytology is revealed atypical urothelial cells and has been requested referral to Nephrology. (5) GERD (gastroesophageal reflux disease): Comment: Years omeprazole-intermittent dysphagia-never had EGD Code(s): K21.9 - Gastro-esophageal reflux disease without esophagitis Qualifiers: Esophagitis presence: without esophagitis Qualified Code(s): K21.9 - Gastro-esophageal reflux disease without esophagitis Plan: Avoid the foods that causes that usually spicy foods, tomato products, juices, coffee, soda and foods that your sensitive to. After eating do not lie down, allow 3-4 hours before in lie down. And keep the head of bed above 30 degrees to avoid the acid from going up. (6) Hypercholesterolemia: Code(s): E78.00 - Pure hypercholesterolemia, unspecified Plan: Avoid fried foods, chicken skin, eggs, butter margarine, pastries and meat. Be it pork or beef they have a lot of cholesterol on atorvastatin 20 mg once a day Orders: Orders Complete Blood Count Auto Diff Today I48.0 - Paroxysmal atrial fibrillation Basic Metabolic Panel Today I48.0 - Paroxysmal atrial fibrillation Coding Level of Care Code Est Pt Level 4 (98484) Diagnoses Paroxysmal atrial fibrillation I48.0 SOB (shortness of breath) on exertion R06.02 Near syncope R55 Microscopic hematuria R31.29 Gastroesophageal reflux disease without esophagitis K21.9 Esophagitis presence: without esophagitis Hypercholesterolemia E78.00
[2023-08-31 11:42] VITALS: BP 120/70; PULSE 85; O2SAT 97; BMI 22.9
== END 2023-08-31 12:09 | disposition home or self-care (01) ==
PROVIDERS: PCP Internal Medicine; Visit Provider Internal Medicine
DX: I48.0 Paroxysmal atrial fibrillation (principal); R06.02 Shortness of breath; R55 Syncope and collapse; R31.29 Other microscopic hematuria; K21.9 Gastro-esophageal reflux disease without esophagitis; E78.00 Pure hypercholesterolemia, unspecified
CPT/HCPCS: 99214

== ENCOUNTER 2023-09-01 06:03 | Outpatient (REF) | payer MEDICARE, SELFPAY ==
[2023-09-01 06:15] LABS: MANUAL DIFF FLAG NO
[2023-09-01 08:05] LABS: Basophils Absolute Auto 0.1 X10*3/uL (0.0-0.2); Basophils Percent Auto 1.1 % (0-2); Eosinophils Absolute Auto 0.4 X10*3/uL (0.0-0.4); Eosinophils Percent Auto 5.9 % (0-4); Hemoglobin 13.1 g/dl (12.0-16.0); Imm Gran Abs Auto 0.02 X10*3/uL (0.00-0.03); Imm Gran Pct Auto 0.3 % (0.0-0.4); Lymphocytes Absolute Auto 3.1 X10*3/uL (1.2-4.9); Lymphocytes Percent Auto 48.7 % (20-40); Mean Corpuscular HGB Conc 34.5 g/dl (31.0-35.0); Mean Corpuscular Hemoglobin 31.6 pg (27.0-33.0); Mean Corpuscular Volume 91.8 fL (80.0-98.0); Mean Platelet Volume 9.6 fL (9.4-12.3); Monocytes Absolute Auto 0.8 X10*3/uL (0.1-1.2); Monocytes Percent Auto 13.1 % (2-11); Neutrophils Percent Auto 30.9 % (45-73); Platelet Count 380 X10*3/uL (160-400); Red Blood Count 4.14 X10*6/uL (4.20-5.50); Red Cell Distribution Width 12.5 % (11.0-16.0); White Blood Count 6.4 X10*3/uL (4.8-10.8)
[2023-09-01 08:43] LABS: Anion Gap 13 (12-20); Blood Urea Nitrogen 11 mg/dL (9-16); Calcium 9.8 mg/dL (8.4-10.2); Carbon Dioxide 24 mmol/L (22-29); Chloride 102 mmol/L (96-108); Estimated Glomerular Filt Rate > 60; Glucose Random 86 mg/dL (60-115); Potassium 3.4 mmol/L (3.3-5.1); Sodium 136 mmol/L (135-145)
== END 2023-09-01 06:04 | disposition home or self-care (01) ==
LOC: HO.LAB 06:03
PROVIDERS: PCP Internal Medicine; Visit Provider Internal Medicine
DX: I48.0 Paroxysmal atrial fibrillation (principal)
CPT/HCPCS: 36415; 80048; 85025

== ENCOUNTER 2023-09-09 09:48 | Outpatient (AMB) | payer MEDICARE, SELFPAY ==
[2023-09-09 09:58] VITALS: BP 106/76; PULSE 87; O2SAT 98; BMI 23.4
--- NOTE | 2023-09-09 09:58 | HO.NEPHOV ---
Vital Signs 09/09/23 09:58 Height 5 ft 3 in Weight 132 lb BMI 23.4 BP 106/76 Blood Pressure Location Rt brachial Position Sitting Pulse 87 Pulse Source Pulse Oximeter Pulse Oximetry (%) 98 Oxygen Delivery Method Room Air Intake Visit Reasons: Dx-Proteinuria/ Conf Protection Mgr Required: No Accompanied by: Self / Same As Patient Allergies No Known Allergies Allergy (Verified 09/09/23 10:01) HPI Comments Details: . 72-year-old woman with a history of atrial fibrillation anticoagulation. She would microscopic hematuria and underwent urological workup including cystoscopy which was unremarkable. During evaluation she was found to have my anemia of proteinuria and hence this evaluation. Renal function has been stable. [facility] Medical History (Updated 08/31/23 @ 11:51 by Tiffany Hinson MD) Dizziness Hematuria Upper back pain on left side Chest discomfort Throat irritation Chest pain Abnormal screening mammogram GERD (gastroesophageal reflux disease) Osteoporosis History of breast cancer Hypercholesterolemia Surgical History History of elbow surgery History of total abdominal hysterectomy and bilateral salpingo-oophorectomy Hx of total mastectomy of left breast Family History Father No problems noted. Mother Hypertension Stroke Maternal Grandmother Myocardial infarction Maternal Aunt Breast cancer Maternal Uncle Lung cancer Social History Housing: House Alcohol intake: current Alcohol intake frequency: 3 or more drinks per day Alcohol type: beer and wine Comment: once a week 1 drinks Patient Tobacco Use Status: Never used Tobacco e-Cigarette/Vaping Use: Never Used Second Hand Smoke Exposure: No service: No Current occupational status: retired Cognitive needs: No Hearing needs: No Vision needs: Yes (Glasses) Review of Systems Const Denies fever(s) and Denies weight loss Card Denies chest pain Resp Denies cough and Denies hemoptysis GI Denies abdominal pain, Denies diarrhea and Denies nausea Musc Denies back pain Neuro Denies focal weakness Physical Exam Vital Signs: Last Vital Signs Pulse 87 09/09/23 09:58 BP 106/76 09/09/23 09:58 Pulse Ox 98 09/09/23 09:58 Oxygen Delivery Method Room Air 09/09/23 09:58 BMI result Body Mass Index 23.4 Awake. Comfortable. Neck is supple. Mucosa moist. Lungs bilateral scattered rhonchi. Heart S1-S2 heard no gallop. Abdomen soft. Extremities no edema. No involuntary movements. No myoclonus. Resp Auscultation: clear to auscultation bilaterally Results Reviewed Nephrology Results: Hgb 13.1 g/dl (12.0-16.0) 09/01/23 WBC 6.4 X10*3/uL (4.8-10.8) 09/01/23 Plt Count 380 X10*3/uL (160-400) 09/01/23 Sodium 136 mmol/L (135-145) 09/01/23 Potassium 3.4 mmol/L (3.3-5.1) 09/01/23 Chloride 102 mmol/L (96-108) 09/01/23 Carbon Dioxide 24 mmol/L (22-29) 09/01/23 BUN 11 mg/dL (9-16) 09/01/23 Creatinine 0.89 mg/dL (0.5-1.4) 09/01/23 Calcium 9.8 mg/dL (8.4-10.2) 09/01/23 Assessment & Plan Assessment & Plan (1) Microscopic hematuria: Code(s): R31.29 - Other microscopic hematuria Category: Medical (2) Proteinuria: Code(s): R80.9 - Proteinuria, unspecified Category: Medical Plan .. Renetta is a 73-year-old woman with a history of minimal proteinuria by dipstick and microscopic hematuria with normal renal function. I have initiated a workup including basic serologies and we will quantify urine protein excretion. She is scheduled for renal ultrasonogram next month. In the past renal ultrasonogram was unremarkable in 2020. I have not made any changes to her medications. Encouraged her to stand low-sodium diet increase fluid intake. Further workup will be based on the outcome of these investigations. Orders: Orders Neutrophil Cytoplasma Ab 1 Month R31. - Other microscopic hematuria, R80.9 - Proteinuria, unspecified Proteinase 3 PR3 Antibodies 1 Month R31.29 - Other microscopic hematuria, R80.9 - Proteinuria, unspecified Myeloperoxidase Antibody 1 Month R31.29 - Other microscopic hematuria, R80.9 - Proteinuria, unspecified Anti Glomerular Basement Memb 1 Month R31.29 - Other microscopic hematuria, R80.9 - Proteinuria, unspecified UA and rflx microscopic 1 Month R31.29 - Other microscopic hematuria, R80.9 - Proteinuria, unspecified Creatinine Urine 1 Month R31.29 - Other microscopic hematuria, R80.9 - Proteinuria, unspecified Complement C3 1 Month R31.29 - Other microscopic hematuria, R80.9 - Proteinuria, unspecified Complement C4 1 Month R31.29 - Other microscopic hematuria, R80.9 - Proteinuria, unspecified Protein Electrophoresis, Serum 1 Month R31.29 - Other microscopic hematuria, R80.9 - Proteinuria, unspecified Total Protein Urine Random 1 Month R31.29 - Other microscopic hematuria, R80.9 - Proteinuria, unspecified Coding Level of Care Code New Pt Level 4 (53103) Diagnoses Microscopic hematuria R31.29 Proteinuria R80.9
== END 2023-09-09 10:25 | disposition home or self-care (01) ==
PROVIDERS: PCP Internal Medicine; Referring Provider Urology; Visit Provider Internal Medicine Hypertension Specialist
DX: R31.29 Other microscopic hematuria (principal); R80.9 Proteinuria, unspecified
CPT/HCPCS: 99204

== ENCOUNTER → 2023-09-09 09:48 | Outpatient (BNVA) | payer MEDICARE, SELFPAY | PROVIDERS: PCP Internal Medicine; Referring Provider Urology; Visit Provider Internal Medicine Hypertension Specialist | DX: R31.29 Other microscopic hematuria (principal); R80.9 Proteinuria, unspecified | CPT/HCPCS: 99202 ==

== ENCOUNTER 2023-09-24 07:46 | Outpatient (REF) | payer MEDICARE, SELFPAY ==
--- NOTE | ~2023-09-24 | US_ITS ---
EXAMINATION: US RETROPERITONEAL LIMITED (RENAL ONLY) CLINICAL INFORMATION: Microscopic hematuria. COMPARISON: Previous renal ultrasound February [address] of the abdomen and pelvis June 2022 TECHNIQUE: Grayscale and color imaging of the kidneys FINDINGS: RIGHT KIDNEY: 10 x 3.6 x 5.5 cm (SAG x AP x TRV). The kidney is normal in size, contour, and echogenicity. Renal cortical thickness is normal. No calculi or focal parenchymal lesions. No hydronephrosis. LEFT KIDNEY: 10 x 5.5 x 4.4 cm (SAG x AP x TRV). The kidney is normal in size, contour, and echogenicity. Renal cortical thickness is normal. No calculi or focal parenchymal lesions. No hydronephrosis. US/US renal BI IMPRESSION: Unremarkable exam.
== END 2023-09-24 07:47 | disposition home or self-care (01) ==
LOC: HO.US 07:46
PROVIDERS: PCP Internal Medicine; Visit Provider Urology
DX: R31.29 Other microscopic hematuria (principal)
CPT/HCPCS: 76775

== ENCOUNTER 2023-09-30 08:11 | Outpatient (AMB) | payer MEDICARE, SELFPAY ==
--- NOTE | 2023-09-30 08:20 | A.OFFVIS_ITS ---
Intake Visit Reasons: 6w follow up/US Intake Note: Patient presents today for follow up on imaging Meds- None Allergies to Antibiotic- No Known Allergies Blood Thinner- Eliquis Director Of Financial Aid Required: No Accompanied by: Self / Same As Patient Allergies No Known Allergies Allergy (Verified 09/30/23 08:26) HPI Comments Details: 09/30/2023--Renetta is followed for microscopic hematuria, she had urine cytology sent on 07/30/2023 that came back atypical cells. She was asked to repeat the urine which resulted in a negative result and she was scheduled for renal ultrasound. She was sent to nephrology to evaluate for proteinuria as well. Discussed with Renetta that renal ultrasound was within normal limits. Review of chart. 07/30/2023--Renetta is here for one year follow-up persistent microscopic hematuria. She states she is being worked up for cardiac issues, recently started Eliquis for atrial fibrillation. Denies any urinary symptoms. Urinalysis proteinuria. Will refer to Nephrology. Will send today's urine for cytology. 07/24/2022-- Renetta is a 72-year-old female who presents to the office for cystoscopy procedure and discussion of CT scan results. Evaluation today: Blood:1+, leukocytes: negative. Cystoscopy findings: No suspicious bladder lesion visualized. Pelvic exam: No prolapse noted, narrow introitus, and atrophic vaginitis. CTAP results reviewed?06/24/22-- Unremarkable findings. Will monitor the patient for microscopic hematuria. Follow-up after a year for urinalysis. 06/03/22--Renetta is a 72-year-old female who is here as a new patient evaluation for microscopic hematuria. Ordered for CAT scan. Urine cytology-- negative Past medical history left breast cancer status post mastectomy at age 35. Status post hysterectomy for endometriosis- 1998 She denies irritative voiding symptoms Review of her chart she did have urine cytology in 2020 which was negative Evaluation today: Urinalysis microscopic blood present, no signs of infection Plan urine cytology, CT scan with and without IV contrast follow-up office cystoscopy. [facility] Medical History Dizziness Hematuria Upper back pain on left side Chest discomfort Throat irritation Chest pain Abnormal screening mammogram GERD (gastroesophageal reflux disease) Osteoporosis History of breast cancer Hypercholesterolemia Surgical History History of elbow surgery History of total abdominal hysterectomy and bilateral salpingo-oophorectomy Hx of total mastectomy of left breast Family History Father No problems noted. Mother Hypertension Stroke Maternal Grandmother Myocardial infarction Maternal Aunt Breast cancer Maternal Uncle Lung cancer Social History Housing: House Alcohol intake: current Alcohol intake frequency: 3 or more drinks per day Alcohol type: beer and wine Comment: once a week 1 drinks Patient Tobacco Use Status: Never used Tobacco e-Cigarette/Vaping Use: Never Used Second Hand Smoke Exposure: No service: No Current occupational status: retired Cognitive needs: No Hearing needs: No Vision needs: Yes (Glasses) Review of Systems Const All systems reviewed & are unremarkable except as noted in HPI and below Reports no additional complaints Eyes Reports no additional complaints ENT Reports no additional complaints Card Reports no additional complaints Resp Reports no additional complaints GI Reports no additional complaints Reports as per HPI Musc Reports no additional complaints Skin/Breast Reports system reviewed and no additional complaints, except as documented Neuro Reports no additional complaints Psych Reports no additional complaints Endo Reports no additional complaints Kobe/Lymph Reports no additional complaints Aller/Immun Reports no additional complaints Results Reviewed Results Reviewed: Date of Service: 09/24/23 EXAMINATION: US RETROPERITONEAL LIMITED (RENAL ONLY) CLINICAL INFORMATION: Microscopic hematuria. COMPARISON: Previous renal ultrasound February [address] of the abdomen and pelvis June 2022 TECHNIQUE: Grayscale and color imaging of the kidneys FINDINGS: RIGHT KIDNEY: 10 x 3.6 x 5.5 cm (SAG x AP x TRV). The kidney is normal in size, contour, and echogenicity. Renal cortical thickness is normal. No calculi or focal parenchymal lesions. No hydronephrosis. LEFT KIDNEY: 10 x 5.5 x 4.4 cm (SAG x AP x TRV). The kidney is normal in size, contour, and echogenicity. Renal cortical thickness is normal. No calculi or focal parenchymal lesions. No hydronephrosis. IMPRESSION: Unremarkable exam. Collected: 08/20/23 Location: .LAB Received: 08/23/23 Diagnosis Urine: Negative for high-grade urothelial carcinoma. See comment. COMMENT: Cellular specimen consisting of relatively numerous single urothelial cells, squamous cells, red blood cells and lymphocytes. Clinical History Proteinuria, unspecified, other microscopic hematuria Material Received Urine Gross Description 60 cc of clear yellow fluid Assessment & Plan Assessment & Plan (1) Microscopic hematuria: Code(s): R31.29 - Other microscopic hematuria Category: Medical Plan Persistent asymptomatic microscopic hematuria. proteinuria - was referred to Nephrology Fu in one year. Patient Instructions: The patient had an opportunity to ask questions regarding treatment plan. The patient expressed understanding and agreement with the above treatment plan. The patient is aware they should contact our office by phone for worsening of their current condition or the appearance of new symptoms. Compliance is encouraged with any medications and followup testing that is ordered. It is a privilege to be allowed the opportunity to participate in the urologic care of your patient. If you have any questions or concerns regarding treatment for the above conditions please do not hesitate to contact me. The office telephone contact is [phone]. This note is constructed in part using voice recognition software. While every effort has been made to ensure accuracy library clerical assistant errors may have been included. Yours sincerely, Jennifer Cm MD Coding Level of Care Code Est Pt Level 3 (27329) Diagnoses Microscopic hematuria R31.29
== END 2023-09-30 08:37 | disposition home or self-care (01) ==
LOC: HO.HUSH 08:11
PROVIDERS: PCP Internal Medicine; Visit Provider Urology
DX: R31.29 Other microscopic hematuria (principal)
CPT/HCPCS: 99213

== ENCOUNTER → 2023-09-30 08:11 | Outpatient (BNVA) | payer MEDICARE, SELFPAY | PROVIDERS: PCP Internal Medicine; Visit Provider Urology | DX: R31.29 Other microscopic hematuria (principal) | CPT/HCPCS: 99212 ==

== ENCOUNTER 2023-10-20 06:29 | Outpatient (REF) | payer MEDICARE, SELFPAY ==
[2023-10-20 10:06] LABS: Creatinine Urine 36.62 mg/dL; Total Protein Urine Random < 7 mg/dL (<12)
[2023-10-20 10:37] LABS: Appearance Urine Clear; Color Urine Yellow; Glucose Urine UA Negative (Negative); Leukocyte Esterase Urine Small (1+) (Negative); Nitrite Urine Negative (Negative); PH 6.5 (5.0-9.0); UMIC TRIGGER UA YES; Urine Blood Small (1+) (Negative); Urine Ketones Negative (Negative); Urine Protein Negative (Neg-Trace)
[2023-10-20 11:27] LABS: Bacteria Urine None Seen (None Seen); Squamous Epithelial Cell Urine 0-2 /HPF (0-2); WBC Urine 0-5 /HPF (0-5)
[2023-10-20 11:28] LABS: Hyaline Casts Urine 0-2 /LPF (0-2)
[2023-10-21 10:59] LABS: Complement C3 140 mg/dL (83-193)
[2023-10-21 13:58] LABS: Anti Glomerular Basement Memb <1.0 AI; Myeloperoxidase Antibody <1.0 AI; Proteinase 3 PR3 Antibodies <1.0 AI
[2023-10-21 22:47] LABS: Prot Elec - Albumin 4.1 g/dL (3.8-4.8); Prot Elec - Alpha1 0.3 g/dL (0.2-0.3); Prot Elec - Alpha2 0.8 g/dL (0.5-0.9); Prot Elec - Beta 1 0.4 g/dL (0.4-0.6); Prot Elec - Beta 2 0.4 g/dL (0.2-0.5); Prot Elec - Gamma 0.9 g/dL (0.8-1.7); Prot Elec - Total Protein 6.8 g/dL (6.1-8.1)
[2023-10-25 06:49] LABS: Neutrophil Cyto Ab Screen NEGATIVE (NEGATIVE)
== END 2023-10-20 06:30 | disposition home or self-care (01) ==
LOC: HO.LAB 06:29
PROVIDERS: PCP Internal Medicine; Visit Provider Internal Medicine Hypertension Specialist
DX: R80.9 Proteinuria, unspecified (principal); R31.29 Other microscopic hematuria
CPT/HCPCS: 36415; 81001; 81003; 82570; 83520; 84156; 84165; 86021; 86036; 86160

== ENCOUNTER 2023-11-29 10:01 | Outpatient (AMB) | payer MEDICARE, SELFPAY ==
[2023-11-29 10:08] VITALS: BP 122/72; PULSE 70; O2SAT 97; BMI 23.4
--- NOTE | 2023-11-29 10:08 | HO.NEPHOV ---
Vital Signs 11/29/23 10:08 Height 5 ft 3 in Weight 132 lb BMI 23.4 BP 122/72 Blood Pressure Location Rt brachial Position Sitting Pulse 70 Pulse Source Pulse Oximeter Pulse Oximetry (%) 97 Oxygen Delivery Method Room Air Intake Visit Reasons: 2 Month Fu/ Conf Bucket Turner Required: No Accompanied by: Self / Same As Patient Allergies No Known Allergies Allergy (Verified 11/29/23 10:12) Medication List - Last Reconciled 11/29/23 by Meet Rodriguez MD alendronate 70 mg PO QWEEK apixaban (Eliquis) 5 mg PO BID atorvastatin 20 mg PO DAILY 90 days loratadine (Claritin) 10 mg PO DAILY meloxicam 7.5 mg PO DAILY omeprazole 20 mg PO .everyother da HPI Comments Details: . 72-year-old woman with a history of atrial fibrillation anticoagulation. She would microscopic hematuria and underwent urological workup including cystoscopy which was unremarkable. During evaluation she was found to have my anemia of proteinuria and hence this evaluation. Renal function has been stable. [facility] Medical History Dizziness Hematuria Upper back pain on left side Chest discomfort Throat irritation Chest pain Abnormal screening mammogram GERD (gastroesophageal reflux disease) Osteoporosis History of breast cancer Hypercholesterolemia Surgical History History of elbow surgery History of total abdominal hysterectomy and bilateral salpingo-oophorectomy Hx of total mastectomy of left breast Family History Father No problems noted. Mother Hypertension Stroke Maternal Grandmother Myocardial infarction Maternal Aunt Breast cancer Maternal Uncle Lung cancer Social History Housing: House Alcohol intake: current Alcohol intake frequency: 3 or more drinks per day Alcohol type: beer and wine Comment: once a week 1 drinks Patient Tobacco Use Status: Never used Tobacco e-Cigarette/Vaping Use: Never Used Second Hand Smoke Exposure: No service: No Current occupational status: retired Cognitive needs: No Hearing needs: No Vision needs: Yes (Glasses) Physical Exam Vital Signs: BMI result Body Mass Index 23.4 Const General: comfortable; No acute distress Orientation/consciousness: patient oriented x3 Eyes General: appearance normal, both eyes and all related structures Visual El: normal visual el by confrontation Neck Neck: Yes supple and Yes no JVD Resp Effort & Inspection: normal respiratory effort and respiratory effort not decreased Auscultation: rhonchi Cardio Palpation: no palpable S3 and no palpable S4 Heart sounds: no rubs GI Inspection: Yes normal to inspection Palpation (GI): Soft to palpation Percussion: Yes normal to percussion Auscultation: normal bowel sounds General: Yes no CVA tenderness Back/Spine/Pelvis Back: no CVA tenderness Skin General skin exam: no petechiae and no purpura Neuro General: patient oriented x3 and no focal motor deficits Extrem General: No clubbing and No edema Results Reviewed Nephrology Results: Hgb 13.1 g/dl (12.0-16.0) 09/01/23 WBC 6.4 X10*3/uL (4.8-10.8) 09/01/23 Plt Count 380 X10*3/uL (160-400) 09/01/23 Sodium 136 mmol/L (135-145) 09/01/23 Potassium 3.4 mmol/L (3.3-5.1) 09/01/23 Chloride 102 mmol/L (96-108) 09/01/23 Carbon Dioxide 24 mmol/L (22-29) 09/01/23 BUN 11 mg/dL (9-16) 09/01/23 Creatinine 0.89 mg/dL (0.5-1.4) 09/01/23 Calcium 9.8 mg/dL (8.4-10.2) 09/01/23 Urine Protein Negative mg/dL (Neg-Trace) 10/20/23 Urine Creatinine 36.62 mg/dL 10/20/23 Renal US 09/24/23 Assessment & Plan Assessment & Plan (1) Microscopic hematuria: Code(s): R31.29 - Other microscopic hematuria Category: Medical (2) Proteinuria: Code(s): R80.9 - Proteinuria, unspecified Category: Medical Plan .. Renetta is a 73-year-old woman with a history of minimal proteinuria by dipstick and microscopic hematuria with normal renal function. No proteinuria Creatinine at baseline USG unremarkable. I have not made any changes to her medications. Encouraged her to stand low-sodium diet increase fluid intake. No need for further work up at this time Orders: Orders Basic Metabolic Panel 1 Year R31.29 - Other microscopic hematuria Total Protein Urine Random 1 Year R31.29 - Other microscopic hematuria Creatinine Urine 1 Year R31.29 - Other microscopic hematuria Coding Level of Care Code Est Pt Level 3 (55098) Diagnoses Microscopic hematuria R31.29 Proteinuria R80.9
== END 2023-11-29 10:20 | disposition home or self-care (01) ==
PROVIDERS: PCP Internal Medicine; Visit Provider Internal Medicine Hypertension Specialist
DX: R31.29 Other microscopic hematuria (principal); R80.9 Proteinuria, unspecified
CPT/HCPCS: 99213

== ENCOUNTER → 2023-11-29 10:01 | Outpatient (BNVA) | payer MEDICARE, SELFPAY | PROVIDERS: PCP Internal Medicine; Visit Provider Internal Medicine Hypertension Specialist | DX: R31.29 Other microscopic hematuria (principal); R80.9 Proteinuria, unspecified | CPT/HCPCS: 99212 ==

== ENCOUNTER 2024-01-10 06:12 | Outpatient (REF) | payer MEDICARE, SELFPAY ==
[2024-01-10 08:25] LABS: Anion Gap 8 (12-20); Blood Urea Nitrogen 10 mg/dL (9-16); Calcium 9.6 mg/dL (8.4-10.2); Carbon Dioxide 28 mmol/L (22-29); Chloride 109 mmol/L (96-108); Estimated Glomerular Filt Rate > 60; Glucose Random 85 mg/dL (60-115); Potassium 3.4 mmol/L (3.3-5.1); Sodium 142 mmol/L (135-145)
== END 2024-01-10 06:13 | disposition home or self-care (01) ==
LOC: HO.LAB 06:12
PROVIDERS: PCP Internal Medicine; Visit Provider Internal Medicine Cardiovascular Disease
DX: R06.02 Shortness of breath (principal); I48.0 Paroxysmal atrial fibrillation; R55 Syncope and collapse
CPT/HCPCS: 36415; 80048

== ENCOUNTER 2024-01-14 09:47 | Outpatient (AMB) | payer MEDICARE, SELFPAY ==
--- NOTE | 2024-01-14 09:57 | A.OFFPC_ITS ---
Vital Signs 01/14/24 09:58 Height 5 ft 3 in Weight 134 lb 8 oz BMI 23.8 BP 100/68 Blood Pressure Location Rt brachial Position Sitting Pulse 53 Pulse Source Pulse Oximeter Pulse Oximetry (%) 93 Oxygen Delivery Method Room Air Intake Visit Reasons: Atrial fibrillation Intake Note: Patient is here to follow up on AFib. Pt decline flu shot today. 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 Last seen in August 2023. Had some shortness of breath has been advised coronary CTA. Patient had some hematuria and was referred to Urology. Review of the notes has seen Nephrology in November unremarkable urology workup presently no need for further workup. cardiac work up postponed due to reschedule (problem with getting this scheduled in [facility] [place]) [facility] Medical History Dizziness Hematuria Upper back pain on left side Chest discomfort Throat irritation Chest pain Abnormal screening mammogram GERD (gastroesophageal reflux disease) Osteoporosis History of breast cancer Hypercholesterolemia Surgical History History of elbow surgery History of total abdominal hysterectomy and bilateral salpingo-oophorectomy Hx of total mastectomy of left breast Family History Father No problems noted. Mother Hypertension Stroke Maternal Grandmother Myocardial infarction Maternal Aunt Breast cancer Maternal Uncle Lung cancer Social History Housing: House Alcohol intake: current Alcohol intake frequency: 3 or more drinks per day Alcohol type: beer and wine Comment: once a week 1 drinks Patient Tobacco Use Status: Never used Tobacco e-Cigarette/Vaping Use: Never Used Second Hand Smoke Exposure: No service: No Current occupational status: retired Cognitive needs: No Hearing needs: No Vision needs: Yes (Glasses) Questionnaire Thrive Questionnaire Date Thrive assessed: 05/05/23 Are you currently unemployed and looking for a job?: No AUDIT C Alcohol Use Questionnaire (AUDIT-C) 2. How many drinks containing alcohol do you have on a typical day when you are drinking?: 1 or 2 3. How often do you have six or more drinks on one occasion?: Never Total Score: 0 SHIVANI-7 AMB Questionnaire SHIVANI-7 Date SHIVANI - 7 assessed: 05/05/23 Source: Developed by Drs. Mega Guevara, Karyna Kulkarni, Humberto Magana and colleagues, with an educational suma from [employer]. Physical exam (Primary Care) Vital Signs: Last Vital Signs Pulse 53 01/14/24 09:58 BP 100/68 01/14/24 09:58 Pulse Ox 93 01/14/24 09:58 Oxygen Delivery Method Room Air 01/14/24 09:58 BMI result Body Mass Index 23.8 Tobacco/Smoking Status: Tobacco use Status Tobacco use date assessed 01/14/24 01/14/24 10:02 Patient Tobacco Use Status Never used Tobacco 01/14/24 10:02 e-Cigarette/Vaping Use Never Used 01/14/24 10:02 Thrive Assessment: Date of Thrive Assessment Date Thrive assessed 05/05/23 01/14/24 10:02 Const General: alert; No acute distress Eyes Conjunctivae: conjunctivae normal Resp Auscultation: clear to auscultation bilaterally Cardio Rate: regular rate Rhythm: regular rhythm GI Inspection: Yes normal to inspection Extrem General: Yes normal to inspection and No edema Coding Level of Care Code Est Pt Level 4 (46032) Diagnoses Paroxysmal atrial fibrillation I48.0 Microscopic hematuria R31.29 Age-related osteoporosis without current pathological fracture M81.0 Osteoporosis type: age-related Presence of current pathological fracture: without current pathological fracture Gastroesophageal reflux disease without esophagitis K21.9 Esophagitis presence: without esophagitis Hypercholesterolemia E78.00 Assessment & Plan Assessment & Plan (1) Paroxysmal atrial fibrillation: Code(s): I48.0 - Paroxysmal atrial fibrillation Category: Medical Plan: Continue with present dose of anticoagulation with apixaban (2) Microscopic hematuria: Code(s): R31.29 - Other microscopic hematuria Category: Medical Plan: Patient had urological and Nephrology workup which is negative. (3) Osteoporosis: Comment: July 2021 Code(s): M81.0 - Age-related osteoporosis without current pathological fracture Category: Medical Qualifiers: Osteoporosis type: age-related Presence of current pathological fracture: without current pathological fracture Qualified Code(s): M81.0 - Age- related osteoporosis without current pathological fracture Plan: Discussed about repeat bone density. (4) GERD (gastroesophageal reflux disease): Comment: Years omeprazole-intermittent dysphagia-never had EGD Code(s): K21.9 - Gastro-esophageal reflux disease without esophagitis Category: Medical Qualifiers: Esophagitis presence: without esophagitis Qualified Code(s): K21.9 - Gastro-esophageal reflux disease without esophagitis Plan: Avoid the foods that causes that usually spicy foods, tomato products, juices, coffee, soda and foods that your sensitive to. After eating do not lie down, allow 3-4 hours before in lie down. And keep the head of bed above 30 degrees to avoid the acid from going up. (5) Hypercholesterolemia: Code(s): E78.00 - Pure hypercholesterolemia, unspecified Category: Medical Plan: Avoid fried foods, chicken skin, eggs, butter margarine, pastries and meat. Be it pork or beef they have a lot of cholesterol LDL goal of less than 130 and triglyceride of less than 150. . Concern about cardiology workup Orders: Orders Comprehensive Met. Panel 2 Months E78.00 - Pure hypercholesterolemia, unspecified Thyroid Stimulating Hormone 2 Months E78.00 - Pure hypercholesterolemia, unspecified Lipid Panel 2 Months E78.00 - Pure hypercholesterolemia, unspecified Vitamin D 25-OH Total 2 Months E78.00 - Pure hypercholesterolemia, unspecified XR DEXA axial skeleton Today M81.0 - Age-related osteoporosis without current pathological fracture Complete Blood Count Auto Diff 2 Months E78.00 - Pure hypercholesterolemia, unspecified Free T4 (Free Thyroxine) 2 Months E78.00 - Pure hypercholesterolemia, unspecified Vitamin B12 and Folate 2 Months E78.00 - Pure hypercholesterolemia, unspecified
[2024-01-14 09:58] VITALS: BP 100/68; PULSE 53; O2SAT 93; BMI 23.8
== END 2024-01-14 10:40 | disposition home or self-care (01) ==
PROVIDERS: PCP Internal Medicine; Visit Provider Internal Medicine
DX: I48.0 Paroxysmal atrial fibrillation (principal); R31.29 Other microscopic hematuria; M81.0 Age-related osteoporosis without current pathological fracture; K21.9 Gastro-esophageal reflux disease without esophagitis; E78.00 Pure hypercholesterolemia, unspecified

== ENCOUNTER → 2024-01-14 09:47 | Outpatient (BNVA) | payer MEDICARE, SELFPAY | PROVIDERS: PCP Internal Medicine; Visit Provider Internal Medicine | DX: I48.0 Paroxysmal atrial fibrillation (principal); R31.29 Other microscopic hematuria; M81.0 Age-related osteoporosis without current pathological fracture; K21.9 Gastro-esophageal reflux disease without esophagitis; E78.00 Pure hypercholesterolemia, unspecified | CPT/HCPCS: 99212 ==

== ENCOUNTER 2024-02-03 08:28 | Outpatient (AMB) | payer MEDICARE, SELFPAY ==
--- NOTE | 2024-02-03 08:43 | AM.OFFVISNUR ---
Intake Visit Reasons: flu shot Allergies No Known Allergies Allergy (Verified 01/14/24 09:57) Office Procedures Flu Questionnaire Does the patient have a severe egg allergy?: No Does the patient have severe life threatening allergies?: No Does the patient have a fever or illness today?: No Has the patient ever had Guillain-[place] Syndrome?: No Has the patient ever had any past reaction to a flu shot?: No Assessment & Plan Assessment & Plan Orders: Orders Influenza [id number] Immunization Today Z23 - Encounter for immunization Medications: New Fluarix Triv [id number] (PF) (flu vacc [id number] 6mos up(PF)) 0.5 mL IM ONCE 0.5 mL 0RF NS Z23 - Encounter for immunization
== END 2024-02-03 08:45 | disposition home or self-care (01) ==
LOC: HO.HMCH 08:28
PROVIDERS: PCP Internal Medicine
DX: Z23 Encounter for immunization (principal)

== ENCOUNTER → 2024-02-03 08:28 | Outpatient (BNVA) | payer MEDICARE, SELFPAY | PROVIDERS: PCP Internal Medicine | DX: Z23 Encounter for immunization (principal) | CPT/HCPCS: 90471; 90656 ==

== ENCOUNTER 2024-02-07 08:26 | Outpatient (AMB) | payer MEDICARE, SELFPAY ==
[2024-02-07 08:39] VITALS: BP 110/62; PULSE 66; TEMP 36.6; O2SAT 96; BMI 23.7
--- NOTE | 2024-02-07 08:39 | MHC.OFFWIV ---
Intake Vital Signs 02/07/24 08:39 Height 5 ft 3 in Weight 134 lb BMI 23.7 BP 110/62 Blood Pressure Location Rt brachial Position Sitting Pulse 66 Pulse Source Pulse Oximeter Temp 97.9 F Temp Source Oral Pulse Oximetry (%) 96 Intake Visit Reasons: EP Sore throat, loss of voice Intake Note: pt is here for sore throat and loss of voice Patient Tobacco Use Status: Never used Tobacco Allergies No Known Allergies Allergy (Verified 02/07/24 08:39) Do you need a note to return to daycare/school/sports/work: No HPI EP Sore throat, loss of voice HPI Details This note is constructed using voice recognition software. While every effort has been made to ensure accuracy, telephone claims representative errors may have been included. The patient is a 73 year old female who presents to the clinic today with sore throat and loss of voice for the past 3 days. She denies fever, chills, cough, dyspnea, body aches, sick contacts. She has taken covid test which was negative. [facility] Medical History Dizziness Hematuria Upper back pain on left side Chest discomfort Throat irritation Chest pain Abnormal screening mammogram GERD (gastroesophageal reflux disease) Osteoporosis History of breast cancer Hypercholesterolemia Surgical History History of elbow surgery History of total abdominal hysterectomy and bilateral salpingo-oophorectomy Hx of total mastectomy of left breast Family History Father No problems noted. Mother Hypertension Stroke Maternal Grandmother Myocardial infarction Maternal Aunt Breast cancer Maternal Uncle Lung cancer Social History Housing: House Alcohol intake: current Alcohol intake frequency: 3 or more drinks per day Alcohol type: beer and wine Comment: once a week 1 drinks Patient Tobacco Use Status: Never used Tobacco e-Cigarette/Vaping Use: Never Used Second Hand Smoke Exposure: No service: No Current occupational status: retired Cognitive needs: No Hearing needs: No Vision needs: Yes (Glasses) Review of Systems Const All systems reviewed & are unremarkable except as noted in HPI and below Physical Exam Vital Signs: Last Vital Signs Temp 97.9 F 02/07/24 08:39 Pulse 66 02/07/24 08:39 BP 110/62 02/07/24 08:39 Pulse Ox 96 02/07/24 08:39 BMI result Body Mass Index 23.7 Const General: cooperative, healthy appearing, comfortable and no acute distress Orientation/consciousness: patient oriented x3 Limitations: no limitations HEENT Head: Yes normal to inspection Ears: hearing grossly normal bilaterally, external ears normal and TM abnormal retracted General nose exam: Normal external nose present, No nasal discharge present and Abnormal mucous membranes and turbinates present boggy and pale Face and sinus: Yes normal facial exam and Yes sinuses nontender Mouth: Normal oral and palatal mucosa present and moist mucous membranes Throat: Yes tonsils normal, Yes uvula midline, Yes posterior oropharynx abnormal (Erythema), Yes postnasal drainage and Yes cobblestoning Eyes General: appearance normal, both eyes and all related structures Neck Neck: Yes normal visual inspection Resp Effort & Inspection: normal respiratory effort, able to speak in complete sentences, Actively coughing, no respiratory distress, not tachypneic, no tripod positioning and no use of accessory muscles Auscultation: clear to auscultation bilaterally Cardio Rate: regular rate Rhythm: regular rhythm Heart sounds: normal S1 and S2 Skin General skin exam: no rashes or lesions noted Neuro General: patient oriented x3 Extrem General: Yes normal to inspection and Yes no clubbing, cyanosis or edema Results AMB Rapid Strep AMB Rapid Strep Negative Last Edit by Abdirahman Lane CMA on 02/07/24 08:48 Results Reviewed Results Reviewed: Laboratory Last Values Strep Scn Rapid Clinic Negative 02/07/24 08:47 Assessment & Plan Assessment & Plan (1) Allergic rhinitis: Code(s): J30.9 - Allergic rhinitis, unspecified Qualifiers: Allergic rhinitis trigger: unspecified Allergic rhinitis seasonality: seasonal Qualified Code(s): J30.2 - Other seasonal allergic rhinitis Plan: Supportive measures encouraged and reviewed. Advised patient to try a Flonase nasal spray and second-generation antihistamine such as Zyrtec, Claritin, Maris or similar. Advised consideration of sinus rinse if needed. Advised patient to follow up with primary care provider with worsening or failure to resolve. Symptomatic management with prednisone for antiinflammatory effect. Plan See above for full details and plan. Orders: Orders AMB Rapid Strep Screen Today Yajaira Benoit PA-C Z13.9 - Encounter for screening, unspecified Medications: New prednisone 40 mg (2 x 20 mg) PO DAILY 6 tabs 0RF 3 days Yuliya Meier NP Coding Level of Care Code Est Pt Level 3 (64992) Diagnoses Seasonal allergic rhinitis, unspecified trigger J30.2 Allergic rhinitis trigger: unspecified Allergic rhinitis seasonality: seasonal
== END 2024-02-07 09:23 | disposition home or self-care (01) ==
PROVIDERS: PCP Internal Medicine; Visit Provider Registered Nurse
DX: J30.2 Other seasonal allergic rhinitis (principal); Z13.9 Encounter for screening, unspecified

== ENCOUNTER → 2024-02-07 08:26 | Outpatient (BNVA) | payer MEDICARE, SELFPAY | PROVIDERS: PCP Internal Medicine; Visit Provider Registered Nurse | DX: J30.2 Other seasonal allergic rhinitis (principal) | CPT/HCPCS: 87880; 99212 ==

== ENCOUNTER 2024-02-14 15:16 | Outpatient (AMB) | payer MEDICARE, SELFPAY ==
--- NOTE | 2024-02-14 15:18 | A.OFFVIS_ITS ---
Vital Signs 02/14/24 15:19 Height 5 ft 3 in Weight 134 lb 14.766 oz BMI 23.9 BP 112/70 Blood Pressure Location Rt brachial Position Sitting Pulse 74 Pulse Source Pulse Oximeter Intake Visit Reasons: follow-up after CTA Intake Note: Follow up after CTA. Pt c/o of intermittent chest aches. 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 She underwent a coronary CTA due to persistent symptoms which showed no significant hemodynamically significant CAD consistent with myocardial perfusion imaging findings. She has not had any episodes of prolonged palpitation irregular heartbeat since I saw her. She has no bleeding issues or neurologic events. Continues to have symptoms of fatigue. She is b othered by bilateral bursitis in her hips. Denies any heart failure symptoms. Denies any exertional chest pain. [facility] Medical History Dizziness Hematuria Upper back pain on left side Chest discomfort Throat irritation Chest pain Abnormal screening mammogram GERD (gastroesophageal reflux disease) Osteoporosis History of breast cancer Hypercholesterolemia Surgical History History of elbow surgery History of total abdominal hysterectomy and bilateral salpingo-oophorectomy Hx of total mastectomy of left breast Family History Father No problems noted. Mother Hypertension Stroke Maternal Grandmother Myocardial infarction Maternal Aunt Breast cancer Maternal Uncle Lung cancer Social History Housing: House Alcohol intake: current Alcohol intake frequency: 3 or more drinks per day Alcohol type: beer and wine Comment: once a week 1 drinks Patient Tobacco Use Status: Never used Tobacco e-Cigarette/Vaping Use: Never Used Second Hand Smoke Exposure: No service: No Current occupational status: retired Cognitive needs: No Hearing needs: No Vision needs: Yes (Glasses) Review of Systems Const Denies chills, Denies fatigue, Denies fever(s), Denies weight gain and Denies weight loss ENT Denies dizziness Card Denies chest pain, Denies leg edema, Denies lightheadedness, Denies palpitations, Denies dyspnea on exertion, Denies orthopnea and Denies other Resp Denies cough and Denies dyspnea on exertion GI Denies hematochezia and Denies change in stool character Musc Denies abnormal gait, Denies muscle weakness, Denies numbness, Denies radiating pain into limb and Denies tingling Neuro Denies Abnormal speech present, Denies abnormal gait, Denies dizziness, Denies numbness and Denies tingling Endo Denies fatigue and Denies palpitations Physical Exam Vital Signs: Last Vital Signs Pulse 74 02/14/24 15:19 BP 112/70 02/14/24 15:19 BMI result Body Mass Index 23.9 Const General: cooperative, comfortable, no acute distress, well developed, alert, awake and Physically active Nutritional Appearance: well nourished and thin Orientation/consciousness: patient oriented x3 Limitations: no limitations HEENT Head: Yes normocephalic and Yes atraumatic Neck Neck: Yes trachea midline, Yes supple and Yes no JVD Resp Effort & Inspection: normal respiratory effort Auscultation: clear to auscultation bilaterally Cardio Jugular venous distension: no JVD Palpation: normal PMI Rate: regular rate Rhythm: regular rhythm Heart sounds: S1 normal heart sound present, S2 normal heart sound present, no click, no gallops, no murmurs and no rubs GI Auscultation: normal bowel sounds Skin General skin exam: no rashes or lesions noted Neuro General: patient oriented x3 and no focal motor deficits Speech: No Abnormal speech present Extrem General: Yes no clubbing, cyanosis or edema Psych Appearance: grossly normal Assessment & Plan Assessment & Plan (1) Paroxysmal atrial fibrillation: Code(s): I48.0 - Paroxysmal atrial fibrillation Category: Medical Plan: Paroxysmal atrial fibrillation without any obvious clinical recurrence at this point time. She is doing well from cardiac perspective. No need for additional therapy at this point time. No need for antiarrhythmic drug therapy. Advised to call me with any new symptoms. Structurally heart is within normal limits. Continue full oral anticoagulation, currently on Eliquis 5 mg b.i.d.. Semi annual renal function test is recommended. Avoidance of stimulants was discussed. Will follow up in the clinic in 1 year's time, sooner p.r.n.. Thank you for allowing me to partake in his care Coding Level of Care Code Est Pt Level 4 (36820) Complex EM visit Add On G2211 Diagnoses Paroxysmal atrial fibrillation I48.0
[2024-02-14 15:19] VITALS: BP 112/70; PULSE 74; BMI 23.9
== END 2024-02-14 15:33 | disposition home or self-care (01) ==
PROVIDERS: PCP Internal Medicine; Visit Provider Internal Medicine Cardiovascular Disease
DX: I48.0 Paroxysmal atrial fibrillation (principal)
CPT/HCPCS: 99214; G2211

== ENCOUNTER → 2024-02-14 15:16 | Outpatient (BNVA) | payer MEDICARE, SELFPAY | PROVIDERS: PCP Internal Medicine; Visit Provider Internal Medicine Cardiovascular Disease | DX: I48.0 Paroxysmal atrial fibrillation (principal); Z79.01 Long term (current) use of anticoagulants | CPT/HCPCS: 99212 ==

== ENCOUNTER 2024-02-18 08:56 | Outpatient (REF) | payer MEDICARE, SELFPAY ==
--- NOTE | ~2024-02-18 | MM_ITS ---
EXAMINATION: BONE DENSITOMETRY CLINICAL INDICATION: Age-related osteoporosis without current pathological fracture. COMPARISON: Previous BD dated 06/20/2021 and baseline BD dated 05/09/2015. TECHNIQUE: Using a [employer] DXA System (software version: 13.1) manufactured by [employer], dual-energy x-ray absorptiometry was performed of the lumbar spine and left hip. The images are of good technical quality. Summary results are attached. FINDINGS: LEFT FEMUR, NECK: Current: BMD 0.924 g/cm2, Z-score 1.1, T-score -0.8, normal. Prior: BMD 0.902 g/cm2. Baseline: BMD 0.856 g/cm2. LEFT FEMUR, TOTAL: Current: BMD 0.917 g/cm2, Z-score 1.0, T-score -0.7, normal, 0.5% decrease from previous, 5.8% increase from baseline (<5% change is not significant). Prior: BMD 0.922 g/cm2. Baseline: BMD 0.867 g/cm2. AP SPINE L1-L4: Current: BMD 0.930 g/cm2, Z-score -0.3, T-score -2.1, osteopenia, 3.7% decrease from previous, 5.4% increase from baseline (<5% change is not significant). Prior: BMD 0.966 g/cm2. Baseline: BMD 0.882 g/cm2. IDENTIFIED RISK FACTORS: Menopause, hysterectomy, bilateral oophorectomy, osteoporosis. HISTORY OF FRACTURE: None listed. MEDICATIONS: Bisphosphonate. MM/XR DEXA axial skeleton IMPRESSION: 1. DIAGNOSIS: Osteopenia based on the lowest T-score value of -2.1 in the lumbar spine applying World Health Organization criteria. 2. 10-YEAR FRACTURE RISK PREDICTION, FRAX: Not performed in this patient on estrogen or bone building treatments. 3. Treatment Recommendations: NOF guidelines recommend consideration for treatment in postmenopausal women and men age 50 and older presenting with the following: -A hip or vertebral (clinical or morphometric) fracture. -T-score less than or equal to -2.5 at the femoral neck or spine after appropriate evaluation to exclude secondary causes. -Low bone mass at the hip or spine and a 10-year fracture probability by FRAX of greater than or equal to 3% for hip fracture or greater than or equal to 20% for major osteoporotic fracture based on the [place] adapted WHO algorithm. 4. Other Recommendations: All treatment decisions require clinical judgment and consideration of individual patient factors, including patient preferences, comorbidities, previous drug use, risk factors not captured in the FRAX model (e.g. frailty, falls, vitamin D deficiency, increased bone turnover, interval significant decline in bone density) and possible under or overestimation of fracture risk by FRAX. Additional medical evaluation for secondary cause of low bone mineral density may be appropriate. FUTURE SCAN RECOMMENDATION: People with diagnosed cases of osteoporosis or at high risk for fracture should have regular bone mineral density tests. For patients eligible for Medicare, routine testing is allowed once every 2 years. The testing frequency can be increased to one year for patients who have rapidly progressing disease, those who are receiving or discontinuing medical therapy to restore bone mass, or have additional risk factors. Electronically signed by: Ian Burnett MD 02/18/2024 12:19 PM STEFANO PEDRO
== END 2024-02-18 08:57 | disposition home or self-care (01) ==
LOC: HO.MAMMO 08:56
PROVIDERS: PCP Internal Medicine; Visit Provider Internal Medicine
DX: M81.0 Age-related osteoporosis without current pathological fracture (principal)
CPT/HCPCS: 77080

== ENCOUNTER 2024-05-01 06:37 | Outpatient (REF) | payer MEDICARE, SELFPAY ==
[2024-05-01 06:49] LABS: MANUAL DIFF FLAG NO
[2024-05-01 07:41] LABS: Basophils Absolute Auto 0.1 X10*3/uL (0.0-0.2); Basophils Percent Auto 1.1 % (0-2); Eosinophils Absolute Auto 0.3 X10*3/uL (0.0-0.4); Eosinophils Percent Auto 3.6 % (0-4); Hematocrit 36.6 % (37.0-47.0); Hemoglobin 12.5 g/dl (12.0-16.0); Imm Gran Abs Auto 0.02 X10*3/uL (0.00-0.03); Imm Gran Pct Auto 0.3 % (0.0-0.4); Lymphocytes Absolute Auto 3.5 X10*3/uL (1.2-4.9); Lymphocytes Percent Auto 46.1 % (20-40); Mean Corpuscular HGB Conc 34.2 g/dl (31.0-35.0); Mean Corpuscular Hemoglobin 30.9 pg (27.0-33.0); Mean Corpuscular Volume 90.6 fL (80.0-98.0); Mean Platelet Volume 9.8 fL (9.4-12.3); Monocytes Absolute Auto 0.9 X10*3/uL (0.1-1.2); Monocytes Percent Auto 12.2 % (2-11); Neutrophils Absolute Auto 2.8 x10*3/uL (2.0-8.3); Neutrophils Percent Auto 36.7 % (45-73); Platelet Count 398 X10*3/uL (160-400); Red Blood Count 4.04 X10*6/uL (4.20-5.50); Red Cell Distribution Width 13.7 % (11.0-16.0); White Blood Count 7.6 X10*3/uL (4.8-10.8)
[2024-05-01 08:06] LABS: Alanine Aminotransferase 26 U/L (0-31); Albumin Level 4.2 g/dL (3.5-5.0); Alkaline Phosphatase 52 U/L (39-117); Anion Gap 13 (12-20); Aspartate Amino Transferase 30 U/L (5-31); Bilirubin Total 0.4 mg/dL (0.0-1.0); Blood Urea Nitrogen 10 mg/dL (9-16); Calcium 9.4 mg/dL (8.4-10.2); Carbon Dioxide 25 mmol/L (22-29); Chloride 107 mmol/L (96-108); Cholesterol 216 mg/dL (<200); Estimated Glomerular Filt Rate > 60; Glucose Random 81 mg/dL (60-115); HDL Cholesterol 50 mg/dL (>40); LDL Cholesterol Calculated 136 mg/dL (<100); Sodium 141 mmol/L (135-145); Total Protein 7.5 g/dL (6.5-8.0); Triglycerides 152 mg/dL (<150)
[2024-05-01 08:25] LABS: Free T4 (Free Thyroxine) 0.88 ng/dL (0.71-1.85); Vitamin D 25-OH Total 29.8 ng/mL (>30)
[2024-05-01 08:33] LABS: Folate 10.5 ng/mL (> or = 4.0); Vitamin B12 344 pg/mL (200-900)
== END 2024-05-01 06:38 | disposition home or self-care (01) ==
LOC: HO.LAB 06:37
PROVIDERS: PCP Internal Medicine; Visit Provider Internal Medicine
DX: E78.00 Pure hypercholesterolemia, unspecified (principal)
CPT/HCPCS: 36415; 80053; 80061; 82306; 82607; 82746; 84439; 84443; 85025

== ENCOUNTER 2024-05-08 08:50 | Outpatient (AMB) | payer MEDICARE, SELFPAY ==
--- NOTE | 2024-05-08 08:55 | A.OFFPC_ITS ---
Vital Signs 05/08/24 08:56 Height 5 ft 3 in Weight 133 lb 6 oz BMI 23.6 BP 120/70 Blood Pressure Location Rt brachial Position Sitting Pulse 73 Pulse Source Pulse Oximeter Temp 97.1 F Temp Source Skin Pulse Oximetry (%) 97 Oxygen Delivery Method Room Air Intake Visit Reasons: physical Intake Note: Patient is here today for a physical. Telephone Quotation Clerk Required: No 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 Marine Supplies: Not Required per policy Accompanied by: Self / Same As Patient Allergies No Known Allergies Allergy (Verified 05/08/24 08:56) Medication List - Last Reconciled 05/08/24 by Tiffany Hinson MD alendronate 70 mg PO QWEEK apixaban (Eliquis) 5 mg PO BID atorvastatin 20 mg PO DAILY 90 days loratadine (Claritin) 10 mg PO DAILY meloxicam 7.5 mg PO DAILY omeprazole 20 mg PO .everyother da Tobacco use date assessed: 05/08/24 Fall risk assessment: No Falls in past year Last assessed Fall Risk: 05/08/24 Dental Screening Dental Screen Date: 05/08/24 Did you have a dental visit in the last 12 months?: Yes Did you have a dental problem in the last 6 months where you did not have access to dental care?: No Was dental information given to patient?: Patient has dentist HPI physical HPI Details The patient is a 74-year-old female presenting with chronic medical conditions including atrial fibrillation, hyperlipidemia, and osteoporosis for follow-up and management. The atrial fibrillation has been managed with Eliquis for stroke prevention. The patient expressed concerns about the cost of Eliquis and inquired about alternatives such as aspirin, which was clarified to be insufficient. Her hyperlipidemia has previously been controlled with atorvastatin 20 mg, but recent labs indicate an increase in low-density lip oprotein (LDL) levels. The most recent bone density scan showed no significant changes. The patient also has a history of Vitamin D deficiency with recent levels slightly below the desired range. Additionally, there are concerns about an elevated TSH level, which indicates a potential thyroid issue, to be re- evaluated in three months. The patient reports experiencing pain in the sacroiliac area, attributed possibly to arthritis or sacroiliitis, and has previously received cortisone injections for relief. - Influenza and COVID-19 vaccinations di scussed. - Discussion on the importance of vitami n D supplementation, especially in winter months. - Counseling on dietary intake to manage cholesterol levels. - Discussion about increasing atorvastat in dosage for elevated cholesterol. - Recommendation for periodic blood pres sure management to mitigate aortic root dilation. - Importance of regular exercise and hyd ration emphasized. - The patient does not consume tobacco p roducts and has a low alcohol intake, typically not exceeding two drinks per week. - Patient lives an active lifestyle with walking as a preferred form of exercise. - Dietary intake includes regular consum ption of yogurt, oranges, apples, and bananas, avoiding fried foods. - Reports careful management of liquid i ntake in the evening to prevent nocturnal urination. - General: Denies fever, dizziness, or s yncope. - Cardiovascular: Reports occasional shannan st pains and heart palpitations. - Respiratory: Denies shortness of breat h or cough. - Gastrointestinal: Reports occasional s ensation of esophageal obstruction. - Genitourinary: Rarely wakes up to urin ate at night. - Musculoskeletal: Reports pain in the r ight sacroiliac region. - Neurological: Denies recent falls or v ision changes impacting activities of daily living. - Labs: Elevated LDL cholesterol at 136 mg/dL; Vitamin D slightly deficient at 29 ng/mL; TSH elevated at 5.20 uIU/mL. - Imaging: Recent CT scan for coronary a rteries shows no significant coronary artery disease. [facility] Medical History (Updated 05/08/24 @ 09:07 by Tiffany Hinson MD) Osteoporosis Dizziness Hematuria Upper back pain on left side Chest discomfort Throat irritation Chest pain Abnormal screening mammogram GERD (gastroesophageal reflux disease) History of breast cancer Hypercholesterolemia Surgical History History of elbow surgery History of total abdominal hysterectomy and bilateral salpingo-oophorectomy Hx of total mastectomy of left breast Family History Father No problems noted. Mother Hypertension Stroke Maternal Grandmother Myocardial infarction Maternal Aunt Breast cancer Maternal Uncle Lung cancer Social History Housing: House Alcohol intake: current Alcohol intake frequency: 3 or more drinks per day Alcohol type: beer and wine Comment: once a week 1 drinks Patient Tobacco Use Status: Never used Tobacco e-Cigarette/Vaping Use: Never Used Second Hand Smoke Exposure: No service: No Current occupational status: retired Cognitive needs: No Hearing needs: No Vision needs: Yes (Glasses) Questionnaire PHQ-9 Over the last 2 weeks, how often have you been bothered by any of the following problems? 1. Little interest or pleasure in doing things: not at all 2. Feeling down, depressed, or hopeless: not at all 3. Trouble falling or staying asleep, or sleeping too much: not at all 4. Feeling tired or having little energy: several days 5. Poor appetite or overeating: not at all 6. Feeling bad about yourself - or that you are a failure or have let yourself or your family down: not at all 7. Trouble concentrating on things, such as reading the newspaper or watching television: not at all 8. Moving or speaking so slowly that other people could have noticed. Or the opposite - being so fidgety or restless that you have been moving around a lot more than usual: not at all 9. Thoughts that you would be better off or of hurting yourself in some way: not at all Total score: 1 Depression Screening Interpretation: Positive Depression Screening Done: Yes Source: Developed by Drs. Mega Guevara, Karyna Kulkarni, Humberto Magana and colleagues, with an educational suma from [employer]. Thrive Questionnaire Date Thrive assessed: 05/08/24 I am a: Patient What is your living situation today?: I have a steady place to live Within the past 12 months, did the food you bought not last and you didn't have the money to get more?: I choose not to answer this question Within the past 12 months, did you worry whether your food would run out before you got money to buy more?: I choose not to answer this question Do you have trouble paying for medicines?: No Do you have trouble getting transportation to medical appointments?: No Do you have trouble paying your heating and electricity bill?: No Do you have trouble taking care of your child, family member or friend?: No Do you have trouble with day-to-day activities such as bathing, preparing meals, shopping, managing finances, etc.?: No Are you currently unemployed and looking for a job?: No Are you interested in more education?: No Please select the resources that you would like help with: None Currently or been in a relationship where the following occur: No concerns reported THRIVE Score: 0 AUDIT C Alcohol Use Questionnaire (AUDIT-C) 1. How often do you have a drink containing alcohol?: 2-4 times a month 2. How many drinks containing alcohol do you have on a typical day when you are drinking?: 1 or 2 3. How often do you have six or more drinks on one occasion?: Never Total Score: 2 SHIVANI-7 AMB Questionnaire SHIVANI-7 Date SHIVANI - 7 assessed: 05/08/24 Feeling nervous, anxious, or on edge: 0 = Not at all Not being able to stop or control worryin = Not at all Worrying too much about different things: 0 = Not at all Trouble relaxin = Not at all Being so restless that it is hard to sit still: 0 = Not at all Becoming easily annoyed or irritable: 0 = Not at all Feeling afraid as if something awful might happen: 0 = Not at all Total SHIVANI-7 score (0-4 normal; 5-9 mild; 10-14 moderate; 15-21 severe): 0 Source: Developed by Drs. Mega Guevara, Karyna Kulkarni, Humberto Magana and colleagues, with an educational suma from [employer]. Review of Systems Const Denies poor appetite and Denies weakness Eyes Denies no additional complaints ENT Reports Normal hearing present, Denies dizziness, Denies nasal congestion, Denies tinnitus and Denies sore throat Card Denies chest pain, Denies syncope, Denies rapid heart rate and Denies dyspnea Resp Denies cough and Denies dyspnea GI Denies change in stool character, Reports constipation, Denies diarrhea, Denies nausea and Denies vomiting Denies urinary frequency, Denies difficulty voiding and Denies dysuria Neuro Reports Normal hearing present, Denies confusion, Denies dizziness, Denies syncope and Denies weakness Psych Denies confusion Physical exam (Primary Care) Vital Signs: Last Vital Signs Temp 97.1 F 05/08/24 08:56 Pulse 73 05/08/24 08:56 BP 120/70 05/08/24 08:56 Pulse Ox 97 05/08/24 08:56 Oxygen Delivery Method Room Air 05/08/24 08:56 BMI result Body Mass Index 23.6 Tobacco/Smoking Status: Tobacco use Status Tobacco use date assessed 05/08/24 05/08/24 09:00 Patient Tobacco Use Status Never used Tobacco 05/08/24 09:00 e-Cigarette/Vaping Use Never Used 05/08/24 09:00 PHQ-9: PHQ-9 Score PHQ-9: Total score 1 05/08/24 09:08 Depression Screening Interpretation: Positive Thrive Assessment: Date of Thrive Assessment Date Thrive assessed 05/08/24 05/08/24 09:00 Currently or been in a relationship where the following occur: No concerns reported Const General: No confusion Orientation/consciousness: No confusion HENMT Head: Yes normocephalic Ears: external ears normal and TM's normal bilaterally Face and sinus: Yes normal facial exam Mouth: moist mucous membranes Throat: Yes tonsils normal Eyes Conjunctivae: conjunctivae normal Pupils: Equal, round and reactive pupils present and Pupil accommodation reflex normal Direct Ophthalmoscopy: normal light reflex Neck Neck: No lymphadenopathy Thyroid: Thyroid normal Chest Chest palpation & inspection: normal inspection of the chest Resp Effort & Inspection: normal respiratory effort and no audible wheezes Auscultation: clear to auscultation bilaterally, no crackles, no wheezes and lung sounds not diminished Cardio Rate: regular rate Rhythm: regular rhythm Peripheral pulses: radial pulses present and dorsalis pedis present GI Palpation (GI): no masses Auscultation: normal bowel sounds and normoactive bowel sounds Rectal Exam - Female: deferred Skin General skin exam: no rashes or lesions noted Rashes: no rashes Neuro General: No confusion Cranial nerves: Yes Equal, round and reactive pupils present and Yes Normal hearing present Cognition (Neuro): normal cognition Gait exam (Neuro): Normal gait present Motor exam (neuro): 5/5 motor strength present throughout Deep tendon reflexes (DTR's): Right brachioradialis reflex intensity grade: 2+, Left brachioradialis reflex intensity grade: 2+, Right patellar reflex intensity grade: 2+ and Left patellar reflex intensity grade: 2+ Extrem General: No edema Coding Level of Care Code Est Pt Prev Care >65y(56969) Diagnoses Annual physical exam Z00.00 Hypercholesterolemia E78.00 Gastroesophageal reflux disease without esophagitis K21.9 Esophagitis presence: without esophagitis Osteopenia M85.80 Paroxysmal atrial fibrillation I48.0 TSH (thyroid-stimulating hormone deficiency) E03.8 Assessment & Plan Assessment & Plan (1) Annual physical exam: Code(s): Z00.00 - Encounter for general adult medical examination without abnormal findings Category: Medical (2) Hypercholesterolemia: Code(s): E78.00 - Pure hypercholesterolemia, unspecified Category: Medical (3) GERD (gastroesophageal reflux disease): Comment: Years omeprazole-intermittent dysphagia-never had EGD Code(s): K21.9 - Gastro-esophageal reflux disease without esophagitis Category: Medical Qualifiers: Esophagitis presence: without esophagitis Qualified Code(s): K21.9 - Gastro-esophageal reflux disease without esophagitis (4) Osteopenia: Comment: 02/2024 Code(s): M85.80 - Other specified disorders of bone density and structure, unspecified site Category: Medical (5) Paroxysmal atrial fibrillation: Code(s): I48.0 - Paroxysmal atrial fibrillation Category: Medical (6) TSH (thyroid-stimulating hormone deficiency): Code(s): E03.8 - Other specified hypothyroidism Category: Medical Plan - Continue Eliquis for atrial fibrillation management. - Increase atorvastatin dosage to 40 mg to address elevated LDL cholesterol. - Initiate vitamin D supplementation at 2000 IU daily to address mild deficiency. - Reassess thyroid function in three months to monitor elevated TSH levels. - Consider corticosteroid injections if sacroiliac pain persists. - Monitor blood pressure to manage aortic dilation. I discussed the need for continued anticoagulation therapy with Eliquis due to atrial fibrillation and its role in stroke prevention. The risks and prohibitive cost of aspirin as an alternative were reviewed. We talked about increasing the dosage of atorvastatin for elevated cholesterol, emphasizing the need for monitoring dietary intake and managing cholesterol levels effectively. We also reviewed the patient's elevated TSH level, deciding on a follow-up test in three months without immediate intervention. The patient's sacroiliac pain may benefit from further cortisone injections, depending on symptom severity. Discussions included the importance of supplementation for Vitamin D, given the current deficiency, and lifestyle modifications to ensure effective disease management. - Continue taking Eliquis and atorvastatin, with the latter increased to 40 mg daily. - Begin taking 2000 IU of Vitamin D daily. - Maintain dietary habits avoiding high cholesterol foods. - Monitor and report any worsening of sacroiliac pain for potential injection therapy. - Keep blood pressure within normal range; report any significant changes. - Schedule a follow-up blood test for thyroid function in three months. - Reach out if experiencing new symptoms like persistent heart palpitations or increased chest pain. - Follow infection control measures, especially during flu season, by avoiding contact with sick individuals. - Call the clinic if there are any questions or concerns regarding medications or symptoms. Orders: Orders Comprehensive Met. Panel 3 Months E03.8 - Other specified hypothyroidism Lipid Panel 3 Months E78.00 - Pure hypercholesterolemia, unspecified Thyroid Stimulating Hormone 3 Months E03.8 - Other specified hypothyroidism Free T4 (Free Thyroxine) 3 Months E03.8 - Other specified hypothyroidism Medications: Changed From atorvastatin 20 mg PO DAILY 90 days 90 tabs 3RF E78.00 - Pure hyp ercholesterolemia, unspecified To atorvastatin 40 mg PO DAILY 90 days 90 tabs 3RF E78.00 - Pure hypercholesterolemia, unspecified Refilled atorvastatin 40 mg PO DAILY 90 tabs 3RF 90 days E78.00 - Pure hypercholesterolemia, unspecified
[2024-05-08 08:56] VITALS: BP 120/70; PULSE 73; TEMP 36.2; O2SAT 97; BMI 23.6
--- OUTSIDE RECORDS SUMMARY | 2024-05-08 09:09 | XMS_ITS | Clinical Summary ---
Author Organization [facility] Address [address] [place] [address] Care Team Providers Care Lock Installer Name Role Phone Unavailable Primary Care Provider Unavailabl e Social History Tobacco Use Types Packs/Day Years Used Date Smoking Tobacco: Never Assessed Comments Unknown Sex and Gender Information Value Date Recorded Sex Assigned at Not on file Legal Sex Female 7:31 AM EST Gender Identity Not on file Sexual Orientation Not on file Plan of Treatment Not on file
== END 2024-05-08 09:35 | disposition home or self-care (01) ==
PROVIDERS: PCP Internal Medicine; Visit Provider Internal Medicine
DX: Z00.00 Encounter for general adult medical examination without abnormal findings (principal); E78.00 Pure hypercholesterolemia, unspecified; I48.0 Paroxysmal atrial fibrillation; K21.9 Gastro-esophageal reflux disease without esophagitis; M85.80 Other specified disorders of bone density and structure, unspecified site; E03.8 Other specified hypothyroidism

== ENCOUNTER → 2024-05-08 08:50 | Outpatient (BNVA) | payer MEDICARE, SELFPAY | PROVIDERS: PCP Internal Medicine; Visit Provider Internal Medicine | DX: Z00.00 Encounter for general adult medical examination without abnormal findings (principal); E78.00 Pure hypercholesterolemia, unspecified; K21.9 Gastro-esophageal reflux disease without esophagitis; M85.80 Other specified disorders of bone density and structure, unspecified site; I48.0 Paroxysmal atrial fibrillation; E03.8 Other specified hypothyroidism | CPT/HCPCS: 99397 ==

== ENCOUNTER 2024-07-18 08:43 | Outpatient (AMB) | payer MEDICARE, SELFPAY ==
--- NOTE | 2024-07-18 09:01 | A.OFFVIS_ITS ---
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 She is on Eliquis for atrial fibrillation. Denies any urinary symptoms. Discussed will re-evaluate urinary tract with ultrasound retroperitoneum and urine cytology if urinary tract findings remain within normal limits we will follow on a PRN basis. 09/30/2023--Renetta is followed for microscopic hematuria, she had urine cytol ogy sent on 07/30/2023 that came back atypical cells. She was asked to repeat the urine which resulted in a negative result and she was scheduled for renal ultrasound. She was sent to nephrology to evaluate for proteinuria as well. Discussed with Renetta that renal ultrasound was within normal limits. 07/30/2023--Renetta is here for one year follow-up persistent microscopic hematuria. She states she is being worked up for cardiac issues, recently started Eliquis for atrial fibrillation. Denies any urinary symptoms. Urinalysis proteinuria. Will refer to Nephrology. Will send today's urine for cytology. 07/24/2022-- Renetta is a 72-year-old female who presents to the office for cystoscopy procedure and discussion of CT scan results. Evaluation today: Blood:1+, leukocytes: negative. Cystoscopy findings: No suspicious bladder lesion visualized. Pelvic exam: No prolapse noted, narrow introitus, and atrophic vaginitis. CTAP results reviewed?06/24/22-- Unremarkable findings. Will monitor the patient for microscopic hematuria. Follow-up after a year for urinalysis. 06/03/22--Renetta is a 72-year-old female who is here as a new patient evaluation for microscopic hematuria. Ordered for CAT scan. Urine cytology-- negative Past medical history left breast cancer status post mastectomy at age 35. Status post hysterectomy for endometriosis- 1998 She denies irritative voiding symptoms Review of her chart she did have urine cytology in 2020 which was negative Evaluation today: Urinalysis microscopic blood present, no signs of infection Plan urine cytology, CT scan with and without IV contrast follow-up office cystoscopy. [facility] Medical History Osteoporosis Dizziness Hematuria Upper back pain on left side Chest discomfort Throat irritation Chest pain Abnormal screening mammogram GERD (gastroesophageal reflux disease) History of breast cancer Hypercholesterolemia Surgical History History of elbow surgery History of total abdominal hysterectomy and bilateral salpingo-oophorectomy Hx of total mastectomy of left breast Family History Father No problems noted. Mother Hypertension Stroke Maternal Grandmother Myocardial infarction Maternal Aunt Breast cancer Maternal Uncle Lung cancer Social History Housing: House Alcohol intake: current Alcohol intake frequency: 3 or more drinks per day Alcohol type: beer and wine Comment: once a week 1 drinks Patient Tobacco Use Status: Never used Tobacco e-Cigarette/Vaping Use: Never Used Second Hand Smoke Exposure: No service: No Current occupational status: retired Cognitive needs: No Hearing needs: No Vision needs: Yes (Glasses) Review of Systems Const All systems reviewed & are unremarkable except as noted in HPI and below Reports no additional complaints Eyes Reports no additional complaints ENT Reports no additional complaints Card Reports no additional complaints Resp Reports no additional complaints GI Reports no additional complaints Reports as per HPI Musc Reports no additional complaints Skin/Breast Reports system reviewed and no additional complaints, except as documented Neuro Reports no additional complaints Psych Reports no additional complaints Endo Reports no additional complaints Kobe/Lymph Reports no additional complaints Aller/Immun Reports no additional complaints Assessment & Plan Assessment & Plan (1) Microscopic hematuria: Code(s): R31.29 - Other microscopic hematuria Category: Medical Plan ultrasound retroperitoneum and urine cytology if urinary tract findings remain within normal limits we will follow on a PRN basis. Orders: Orders US retroperitoneal comp Today R31.29 - Other microscopic hematuria Patient Instructions: The patient had an opportunity to ask questions regarding treatment plan. The patient expressed understanding and agreement with the above treatment plan. The patient is aware they should contact our office by phone for worsening of their current condition or the appearance of new symptoms. Compliance is encouraged with any medications and followup testing that is ordered. It is a privilege to be allowed the opportunity to participate in the urologic care of your patient. If you have any questions or concerns regarding treatment for the above conditions please do not hesitate to contact me. The office telephone contact is [phone]. This note is constructed in part using voice recognition software. While every effort has been made to ensure accuracy bath mixer errors may have been included. Yours sincerely, Jennifer Cm MD Coding Level of Care Code Est Pt Level 3 (15179) Complex EM visit Add On G2211 Diagnoses Microscopic hematuria R31.29
--- OUTSIDE RECORDS SUMMARY | 2024-07-18 09:08 | XMS_ITS | Clinical Summary ---
Author Organization [facility] Address [address] [place] [address] Care Team Providers Care Block Greaser Name Role Phone Unavailable Primary Care Provider [...]
== END 2024-07-18 09:28 | disposition home or self-care (01) ==
LOC: HO.HUSH 08:43
PROVIDERS: PCP Internal Medicine; Visit Provider Urology
DX: R31.29 Other microscopic hematuria (principal); Z13.9 Encounter for screening, unspecified
CPT/HCPCS: 99213; G2211

== ENCOUNTER 2024-07-18 08:43 | Outpatient (REF) | payer MEDICARE, SELFPAY ==
--- OUTSIDE RECORDS SUMMARY | 2024-07-18 12:12 | XMS_ITS | Clinical Summary ---
Author Organization [facility] Address [address] [place] [address] Care Team Providers Care Distribution Operations Supervisor Name Role Phone Unavailable Primary Care Provider [...]
[2024-07-18 17:03] LABS: Urine Cytology See Pathology rpt
== END 2024-07-18 08:44 | disposition home or self-care (01) ==
LOC: HO.LNP 08:43
PROVIDERS: PCP Internal Medicine; Visit Provider Urology
DX: R31.29 Other microscopic hematuria (principal); Z79.01 Long term (current) use of anticoagulants
CPT/HCPCS: 81003; 88112; 99212

== ENCOUNTER 2024-09-04 06:27 | Outpatient (REF) | payer MEDICARE, SELFPAY ==
[2024-09-04 07:49] LABS: Alanine Aminotransferase 21 U/L (0-31); Albumin Level 4.4 g/dL (3.5-5.0); Alkaline Phosphatase 46 U/L (39-117); Anion Gap 14 (12-20); Aspartate Amino Transferase 25 U/L (5-31); Bilirubin Total 0.6 mg/dL (0.0-1.0); Blood Urea Nitrogen 13 mg/dL (9-16); Calcium 10.1 mg/dL (8.4-10.2); Carbon Dioxide 27 mmol/L (22-29); Chloride 105 mmol/L (96-108); Cholesterol 187 mg/dL (<200); Estimated Glomerular Filt Rate > 60; Glucose Random 83 mg/dL (60-115); HDL Cholesterol 62 mg/dL (>40); LDL Cholesterol Calculated 107 mg/dL (<100); Potassium 3.6 mmol/L (3.3-5.1); Sodium 142 mmol/L (135-145); Total Protein 7.3 g/dL (6.5-8.0); Triglycerides 91 mg/dL (<150)
[2024-09-04 08:07] LABS: Free T4 (Free Thyroxine) 0.94 ng/dL (0.71-1.85); Thyroid Stimulating Hormone 4.87 uIU/mL (0.32-4.0)
== END 2024-09-04 06:28 | disposition home or self-care (01) ==
LOC: HO.LAB 06:27
PROVIDERS: PCP Internal Medicine; Visit Provider Internal Medicine
DX: E03.8 Other specified hypothyroidism (principal); E78.00 Pure hypercholesterolemia, unspecified
CPT/HCPCS: 36415; 80053; 80061; 84439; 84443

== ENCOUNTER 2024-09-21 09:41 | Outpatient (REF) | payer MEDICARE, SELFPAY ==
--- NOTE | ~2024-09-21 | US_ITS ---
CLINICAL HISTORY: R31.29 - Other microscopic hematuria US retroperitoneum with color Doppler Comparison: None Findings: Right kidney normal size and echotexture, 10.8 cm length. No hydronephrosis. Normal color flow. No nephrolithiasis. No renal masses. Left kidney normal size and echotexture, 9.7 cm in length. No hydronephrosis. Normal color flow. No nephrolithiasis. No renal masses. Urinary bladder is unremarkable. Prevoid volume four hundred four mL. Postvoid volume 31 mL. Ureteral jets are visualized bilaterally Impression: 1. Normal kidneys. 2. Slightly elevated postvoid residual This document has been electronically signed by: Anthony Radford MD on 09/21/2024 12:13:53
--- OUTSIDE RECORDS SUMMARY | 2024-09-21 10:39 | XMS_ITS | Clinical Summary ---
Author Organization [facility] Address [address] [place] [address] Care Team Providers Care Pricing/Signage Team Member Name Role Phone Unavailable Primary Care Provider [...]
== END 2024-09-21 09:42 | disposition home or self-care (01) ==
LOC: HO.US 09:41
PROVIDERS: PCP Internal Medicine; Visit Provider Urology
DX: R31.29 Other microscopic hematuria (principal)
CPT/HCPCS: 76770

== ENCOUNTER → 2024-09-21 09:42 | Outpatient (BNV) | payer MEDICARE, SELFPAY | PROVIDERS: PCP Internal Medicine; Visit Provider Radiology Diagnostic Radiology | DX: N39.498 Other specified urinary incontinence (principal) | CPT/HCPCS: 76770 ==

== ENCOUNTER 2024-10-12 07:31 | Outpatient (AMB) | payer MEDICARE, SELFPAY ==
--- NOTE | 2024-10-11 21:27 | A.OFFVIS_ITS ---
Intake Visit Reasons: 12w/US Intake Note: Patient presents today for a 12wkr follow upultrasound Imaging :09/21/24 Meds- None Allergies to Antibiotic- No Known Allergies Blood Thinner- Eliquis Batch Blender Required: No Accompanied by: Self / Same As Patient Allergies No Known Allergies Allergy (Verified 10/12/24 07:32) HPI Comments Details: 10/12/24--Renetta is followed for microscopic hematuria. Telehealth FU renal US- 09/21/24-Urinary bladder is unremarkable. Prevoid volume four hundred four mL. Postvoid volume 31 mL. Ureteral jets are visualized bilaterally. Impression: 1. Normal kidneys. History of Present Illness - The patient is a 74-year-old female presenting with microscopic hematuria. - The patient has been monitored for microscopic hematuria, with recent imaging showing normal kidneys and an unremarkable bladder. - Over the past 3 years, all tests have been WNL, and the plan is to continue monitoring with the primary care physician, FU with on a prn basis. Results - Renal ultrasound: Normal kidneys, unremarkable urinary bladder, post-void residual of 31 mL. 07/18/24--Renetta is here for one year follow-up persistent microscopic hematuria. She is on Eliquis for atrial fibrillation. Denies any urinary symptoms. Discussed will re-evaluate urinary tract with ultrasound retroperitoneum and urine cytology if urinary tract findings remain within normal limits we will follow on a PRN basis. 09/30/2023--Renetta is followed for microscopic hematuria, she had urine cytology sent on 07/30/2023 that came back atypical cells. She was asked to repeat the urine which resulted in a negative result and she was scheduled for renal ultrasound. She was sent to nephrology to evaluate for proteinuria as well. Discussed with Renetta that renal ultrasound was within normal limits. 07/30/2023--Renetta is here for one year follow-up persistent microscopic hematuria. She states she is being worked up for cardiac issues, recently started Eliquis for atrial fibrillation. Denies any urinary symptoms. Urinalysis proteinuria. Will refer to Nephrology. Will send today's urine for cytology. 07/24/2022-- Renetta is a 72-year-old female who presents to the office for cystoscopy procedure and discussion of CT scan results. Evaluation today: Blood:1+, leukocytes: negative. Cystoscopy findings: No suspicious bladder lesion visualized. Pelvic exam: No prolapse noted, narrow introitus, and atrophic vaginitis. CTAP results reviewed?06/24/22-- Unremarkable findings. Will monitor the patient for microscopic hematuria. Follow-up after a year for urinalysis. 06/03/22--Renetta is a 72-year-old female who is here as a new patient evaluation for microscopic hematuria. Ordered for CAT scan. Urine cytology-- negative Past medical history left breast cancer status post mastectomy at age 35. Status post hysterectomy for endometriosis- 1998 She denies irritative voiding symptoms Review of her chart she did have urine cytology in 2020 which was negative Evaluation today: Urinalysis microscopic blood present, no signs of infection Plan urine cytology, CT scan with and without IV contrast follow-up office cystoscopy. [facility] Medical History Osteoporosis Dizziness Hematuria Upper back pain on left side Chest discomfort Throat irritation Chest pain Abnormal screening mammogram GERD (gastroesophageal reflux disease) History of breast cancer Hypercholesterolemia Surgical History History of elbow surgery History of total abdominal hysterectomy and bilateral salpingo-oophorectomy Hx of total mastectomy of left breast Family History Father No problems noted. Mother Hypertension Stroke Maternal Grandmother Myocardial infarction Maternal Aunt Breast cancer Maternal Uncle Lung cancer Social History Housing: House Alcohol intake: current Alcohol intake frequency: 3 or more drinks per day Alcohol type: beer and wine Comment: once a week 1 drinks Patient Tobacco Use Status: Never used Tobacco e-Cigarette/Vaping Use: Never Used Second Hand Smoke Exposure: No service: No Current occupational status: retired Cognitive needs: No Hearing needs: No Vision needs: Yes (Glasses) Telehealth Telehealth Telehealth Platform: [employer] Location of provider rendering services: practice address Location of patient: address on file Patient Identification confirmed using: Name, : Yes Telehealth method: video Patient verbally consented to treatment: Yes Patient verbally consented to billing insurance company: Yes Patient informed of any privacy concerns related to visit: Yes Results Reviewed Results Reviewed: Collected: 07/18/24 Location: [facility] Received: 07/19/24 Diagnosis Urine: Negative for high-grade urothelial carcinoma. See comment. COMMENT: Cellular specimen consisting of single urothelial cells, squamous cells, red blood cells and mixed, mostly acute, inflammatory cells. Clinical History Other microscopic hematuria Material Received Urine Gross Description Received is 75 cc of clear yellow fluid from which a ThinPrep slide is prepared. Date of Service: 09/21/24 CLINICAL HISTORY: R31.29 - Other microscopic hematuria US retroperitoneum with color Doppler Comparison: None Findings: Right kidney normal size and echotexture, 10.8 cm length. No hydronephrosis. Normal color flow. No nephrolithiasis. No renal masses. Left kidney normal size and echotexture, 9.7 cm in length. No hydronephrosis. Normal color flow. No nephrolithiasis. No renal masses. Urinary bladder is unremarkable. Prevoid volume four hundred four mL. Postvoid volume 31 mL. Ureteral jets are visualized bilaterally Impression: 1. Normal kidneys. Bladder unremarkable, postvoid residual 31 mL Other findings as above. Date of Service: 09/24/23 EXAMINATION: US RETROPERITONEAL LIMITED (RENAL ONLY) CLINICAL INFORMATION: Microscopic hematuria. COMPARISON: Previous renal ultrasound February [address] of the abdomen and pelvis June 2022 TECHNIQUE: Grayscale and color imaging of the kidneys FINDINGS: RIGHT KIDNEY: 10 x 3.6 x 5.5 cm (SAG x AP x TRV). The kidney is normal in size, contour, and echogenicity. Renal cortical thickness is normal. No calculi or focal parenchymal lesions. No hydronephrosis. LEFT KIDNEY: 10 x 5.5 x 4.4 cm (SAG x AP x TRV). The kidney is normal in size, contour, and echogenicity. Renal cortical thickness is normal. No calculi or focal parenchymal lesions. No hydronephrosis. IMPRESSION: Unremarkable exam. Collected: 08/20/23 Location: .[facility] Received: 08/23/23 Diagnosis Urine: Negative for high-grade urothelial carcinoma. See comment. COMMENT: Cellular specimen consisting of relatively numerous single urothelial cells, squamous cells, red blood cells and lymphocytes. Clinical History Proteinuria, unspecified, other microscopic hematuria Material Received Urine Gross Description 60 cc of clear yellow fluid Assessment & Plan Assessment & Plan (1) Microscopic hematuria: Code(s): R31.29 - Other microscopic hematuria Category: Medical Plan fu on a prn basis Patient Instructions: The patient had an opportunity to ask questions regarding treatment plan. The patient expressed understanding and agreement with the above treatment plan. The patient is aware they should contact our office by phone for worsening of their current condition or the appearance of new symptoms. Compliance is encouraged with any medications and followup testing that is ordered. It is a privilege to be allowed the opportunity to participate in the urologic care of your patient. If you have any questions or concerns regarding treatment for the above conditions please do not hesitate to contact me. The office telephone contact is [phone]. This note is constructed in part using voice recognition software. While every effort has been made to ensure accuracy hris coordinator errors may have been included. Yours sincerely, Jennifer Cm MD Scribe Plan - Not visible on output: Patient was informed and verbally consented to the use of an ambient scribe for clinic note documentation during this visit. Coding Level of Care Code Tele Est Pt Level 3 (26606) Diagnoses Microscopic hematuria R31.29
== END 2024-10-12 08:37 | disposition home or self-care (01) ==
LOC: HO.HUSH 07:31
PROVIDERS: PCP Internal Medicine; Visit Provider Urology
DX: R31.29 Other microscopic hematuria (principal)
CPT/HCPCS: 99213

== ENCOUNTER 2024-11-13 09:08 | Outpatient (AMB) | payer MEDICARE, SELFPAY ==
--- OUTSIDE RECORDS SUMMARY | 2024-08-17 05:10 | XMS_ITS | Continuity of Care Document ---
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 Name Role Phone María Garcia OD Unavailable Unavailable Allergies, Adverse Reactions, Alerts Substance Reaction Status Criticality No Known Allergies Active No Inform ation Medications Medication Instructions Dosage Effective Dates (start - stop) Status Comments Synjardy XR 25 mg-1,000 mg tablet, extended release - Active Basaglar KwikPen U-100 Insulin 100 unit/mL (3 mL) subcutaneous - Active cholecalciferol (vitamin D3) 25 mcg (1,000 unit) tablet - Active sertraline 25 mg tablet - Ac tive pioglitazone 30 mg tablet - Active omeprazole 40 mg capsule,delayed release - Active losartan 25 mg tablet - Acti ve levetiracetam 500 mg tablet - Active glipizide 2.5 mg tablet - Ac tive gabapentin 300 mg capsule - Active omega-3 fatty acids-fish oil 300 mg-1,000 mg capsule - Active Fiasp FlexTouch U-100 Insulin 100 unit/mL (3 mL) subcutaneous pen - Active FeroSul 325 mg (65 mg iron) tablet - Active atorvastatin 40 mg tablet - Active aspirin 81 mg chewable tablet - Active Tresiba FlexTouch U-100 insulin 100 unit/mL (3 mL) subcutaneous pen - Active Trulicity 3 mg/0.5 mL subcutaneous pen injector - Active BD AutoShield Duo Pen Needle 30 gauge x 3/16 - Active Vitamin D3 25 mcg (1,000 unit) tablet - Active Trulicity 1.5 mg/0.5 mL subcutaneous pen injector - Active Unifine SafeControl 30 gauge x 5/16 needle - Active hydrocortisone 1 % topical cream - Active furosemide 40 mg tablet - Ac tive amoxicillin 500 mg capsule - Active Problems Condition Type Effective Dates (start - stop) Clini milady Status Comments No Known Problems Procedures Procedure Date FULL FIELD ERG W/I&R SBSQ NF CARE SF MDM 10 COMPRE OPH EXAM NEW PT 1/ Advance Directives Directive Yes / No Effective Date File Name No Information Encounters Encounter Description Practice Location Reason(s) For Visit Diagnoses Date Provider Providers Copied on Encounter SBSQ NF CARE SF MDM [address] [place] [address], [id number], tel:[phone] [facility] ERG DR (chief complaint) Changes in retinal vascular appearance, bilateral [facility] Referring Provider: Grace Ordoñez. [address] [place] [address], [address] [place] [address], [id number], tel:[phone] [facility] Blurry vision (chief complaint) Diabetic eye exam (chief complaint) Age-related nuclear cataract, bilateralType 2 diabetes mellitus without complicationsCh anges in retinal vascular appearance, bilateralDermat ochalasis of unspecified eye, unspecified eyelidEndotheli al corneal dystrophy, bilateral 5 [facility] C[facility]all[facility]. Referring Provider: Grace Ordoñez. Family History Family Member Type Diagnosis Age At Onset No Information Payers Payer name Insurance type Covered green party ID Authoransona narda(s) Medicare [facility] [id number] Medicaid [facility] [id number] Social History Type Description Quantity Date Captured Comments Sex Female Smoking Status No Information Chief Complaint And Reason For Visit From encounter dated '08/17/2024 09:10'. ERG (chief complaint) Reason For Referral Reason For Referral No Information Plan Of Treatment Date Type Action Status Appointment Renetta Quinn BOOKED Appointment Renetta Quinn BOOKED History Of Present Illness Encounter Date Complaint History Of Prese nt Illness ERG Blurry vision The 74 year old patient presents for evaluation of Blurry vision in the right eye and left eye. The symptom is constant. The condition is mild. Patient denies: flashes. Diabetic eye exam The patient is present for evaluation of Diabetic eye exam in the right eye and left eye. The symptom is constant. The condition is mild. Patient denies: eye pain. Functional Status Date Functional Assessmen t No Information Instructions Date Instruction Additional Infor anjelica Follow up - Return i n 6-9 months for ERG Impression/Plan - ER G shows reduced global retinal function. We will monitor for progression. Related to Changes in retinal vascular appearance, bilateral Impression/Plan - Monitor Relate d to Endothelial corneal dystrophy, bilateral Follow up - Return i n 6-9 months for dilated fundus exam. Return in 6-9 months for refraction. Return in 1-3 months for ERG Impression/Plan - Monitor Relate d to Dermatochalasis of unspecified eye, unspecified eyelid Impression/Plan - Mi ld retinal vascular changes consistent with hypertension. Minimal occlusive risk. Related to Changes in retinal vascular appearance, bilateral Impression/Plan - No active diabetic retinopathy present in either eye. We will monitor at regular intervals. Related to Type 2 diabetes mellitus without complications Impression/Plan - Ca taracts are mild; we will monitor for progression. Related to Age-related nuclear cataract, bilateral Assessments Type Assessment Date assessment Changes in retinal vascular appe arance, bilateral impression {[email or web address]} Patient Care Teams Name Effective Dates (start - stop) Status Members No Information
--- NOTE | 2024-11-13 09:12 | MHC.PC.OV ---
Vital Signs 11/13/24 09:13 Height 5 ft 3 in Weight 135 lb 4 oz BMI 24.0 BP 112/60 Blood Pressure Location Rt brachial Position Sitting Pulse 66 Pulse Source Pulse Oximeter Temp 97.3 F Temp Source Temporal Artery Scan Pulse Oximetry (%) 96 Oxygen Delivery Method Room Air Intake Visit Reasons: cholesterol , A fib Intake Note: Patient is here to follow up on Cholesterol, AFib. 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 Required: No Mold Chipper: Not Required per policy Accompanied by: Self / Same As Patient Allergies No Known Allergies Allergy (Verified 11/13/24 09:13) Tobacco use date assessed: 11/13/24 Fall risk assessment: No Falls in past year Last assessed Fall Risk: 11/13/24 Dental Screening Dental Screen Date: 05/08/24 PENDING SALE TO [facility] Medical History (Updated 11/13/24 @ 09:24 by Tiffany Hinson MD) TSH (thyroid-stimulating hormone deficiency) Osteoporosis Dizziness Hematuria Upper back pain on left side Chest discomfort Throat irritation Chest pain Abnormal screening mammogram GERD (gastroesophageal reflux disease) History of breast cancer Hypercholesterolemia Surgical History History of elbow surgery History of total abdominal hysterectomy and bilateral salpingo-oophorectomy Hx of total mastectomy of left breast Family History Father No problems noted. Mother Hypertension Stroke Maternal Grandmother Myocardial infarction Maternal Aunt Breast cancer Maternal Uncle Lung cancer Social History (Updated 11/13/24 @ 09:16 by ROBIN Pitts) Housing: House Alcohol intake: current Alcohol intake frequency: a few times a month Alcohol type: beer and wine Comment: once a week 1 drinks Patient Tobacco Use Status: Never used Tobacco e-Cigarette/Vaping Use: Never Used Second Hand Smoke Exposure: No service: No Current occupational status: retired Cognitive needs: No Hearing needs: No Vision needs: Yes (Glasses) Questionnaire Thrive Questionnaire Date Thrive assessed: 05/08/24 I am a: Patient What is your living situation today?: I have a steady place to live Within the past 12 months, did the food you bought not last and you didn't have the money to get more?: I choose not to answer this question Within the past 12 months, did you worry whether your food would run out before you got money to buy more?: I choose not to answer this question Do you have trouble paying for medicines?: No Do you have trouble getting transportation to medical appointments?: No Do you have trouble paying your heating and electricity bill?: No Do you have trouble taking care of your child, family member or friend?: No Do you have trouble with day-to-day activities such as bathing, preparing meals, shopping, managing finances, etc.?: No Are you currently unemployed and looking for a job?: No Are you interested in more education?: No Please select the resources that you would like help with: None Currently or been in a relationship where the following occur: No concerns reported THRIVE Score: 0 SHIVANI-7 AMB Questionnaire SHIVANI-7 Date SHIVANI - 7 assessed: 05/08/24 Source: Developed by Drs. Mega Guevara, Karyna Kulkarni, Humberto Magana and colleagues, with an educational suma from [employer]. Physical exam (Primary Care) Vital Signs: Last Vital Signs Temp 97.3 F 11/13/24 09:13 Pulse 66 11/13/24 09:13 BP 112/60 11/13/24 09:13 Pulse Ox 96 11/13/24 09:13 Oxygen Delivery Method Room Air 11/13/24 09:13 BMI result Body Mass Index 24.0 Tobacco/Smoking Status: Tobacco use Status Tobacco use date assessed 11/13/24 11/13/24 09:18 Patient Tobacco Use Status Never used Tobacco 11/13/24 09:18 e-Cigarette/Vaping Use Never Used 11/13/24 09:18 Thrive Assessment: Date of Thrive Assessment Date Thrive assessed 05/08/24 11/13/24 09:18 Currently or been in a relationship where the following occur: No concerns reported Const General: alert; No acute distress Eyes Conjunctivae: conjunctivae normal Resp Auscultation: clear to auscultation bilaterally Cardio Rate: regular rate Rhythm: regular rhythm GI Inspection: Yes normal to inspection Extrem General: Yes normal to inspection and No edema Immunizations Tenivac (PF) 5 Lf unit-2 Lf unit/0.5 mL intramuscular suspension Performing Provider: Tiffany Hinson MD [facility] Administered by: Edwige Gilbert CMA on 11/13/24 09:40 Dose Route Admin Location Dispensed Lot Number Expiration Date NDC Cellar Packer 0.5 mL IM Left Deltoid 0.5 mL [id number] 07/04/26 13035-857-39 [employer] Total Dispensed Waste 0.5 mL 0 % VIS Given Date VIS Provided VIS Publication Date 11/13/24 Single Vaccine 20 Eligibility Eligibility Date Funding Source Not [facility] Eligible 11/13/24 Private Coding Level of Care Code Est Pt Level 4 (60142) Complex EM visit Add On G2211 Diagnoses Paroxysmal atrial fibrillation I48.0 Hypercholesterolemia E78.00 TSH elevation R79.89 Gastroesophageal reflux disease without esophagitis K21.9 Esophagitis presence: without esophagitis Colon cancer screening Z12.11 Microscopic hematuria R31.29 Assessment & Plan Assessment & Plan (1) Paroxysmal atrial fibrillation: Code(s): I48.0 - Paroxysmal atrial fibrillation Category: Medical Plan: Stable on anticoagulation renal function just done. (2) Hypercholesterolemia: Code(s): E78.00 - Pure hypercholesterolemia, unspecified Category: Medical Plan: Avoid fried foods, chicken skin, eggs, butter margarine, pastries and meat. Be it pork or beef they have a lot of cholesterol on atorvastatin 40 mg once a day LDL goal of less than 130 and triglyceride of less than 150 (3) TSH elevation: Code(s): R79.89 - Other specified abnormal findings of blood chemistry Category: Medical Plan: Continue to monitor slightly elevated (4) GERD (gastroesophageal reflux disease): Comment: Years omeprazole-intermittent dysphagia-never had EGD Code(s): K21.9 - Gastro-esophageal reflux disease without esophagitis Category: Medical Qualifiers: Esophagitis presence: without esophagitis Qualified Code(s): K21.9 - Gastro-esophageal reflux disease without esophagitis Plan: Avoid the foods that causes that usually spicy foods, tomato products, juices, coffee, soda and foods that your sensitive to. After eating do not lie down, allow 3-4 hours before in lie down. And keep the head of bed above 30 degrees to avoid the acid from going up. (5) Colon cancer screening: Code(s): Z12.11 - Encounter for screening for malignant neoplasm of colon Category: Medical Plan: Patient is reminded about colon cancer screening. (6) Microscopic hematuria: Code(s): R31.29 - Other microscopic hematuria Category: Medical Plan: Patient follows up with urology and workup negative Plan History of Present Illness The patient is a 74-year-old female presenting for a follow-up visit. She has a history of Gastroesophageal Reflux Disease (GERD), hypercholesterolemia, nephrolithiasis, atrial fibrillation, and osteopenia. Her last physical examination was in May, and she is currently due for a mammogram and colon cancer screening. The patient follows up with urology for microscopic hematuria, with the last ultrasound showing no nephrolithiasis. Her blood work in April showed normal blood count, platelet count, electrolytes, renal function, blood sugar, and liver function. Her cholesterol levels have improved, with LDL at 107 mg/dL and triglycerides at 291 mg/dL. The patient is stable on anticoagulation therapy with Eliquis and is on atorvastatin for cholesterol management. She also takes alendronate for osteopenia, Claritin, and omeprazole. Her thyroid levels were noted to be mildly elevated and will be rechecked. The patient reports experiencing occasional chest discomfort, which she describes as a non-sharp ache that occurs sporadically and is not associated with exertion. She engages in regular walking and stretching exercises but notes that extreme heat affects her ability to walk for extended periods. She has cataracts, which affect her vision, particularly at night, and is considering surgery when necessary. Health Maintenance - Mammogram is due - Colon cancer screening is due - Bone density is up to date - Vaccinations: Tetanus shot administered - Thyroid levels to be rechecked Social History - Exercise: Engages in regular walking and stretching exercises - Vision: Affected by cataracts, particularly at night Review of Systems - Cardiovascular: Reports occasional non-sharp chest discomfort not associated with exertion - Musculoskeletal: Denies pain on palpation or stretching - Ophthalmologic: Reports vision affected by cataracts, particularly at night Physical Exam Results - Labs: Normal blood count, platelet count, electrolytes, renal function, blood sugar, liver function (April) - Cholesterol: LDL at 107 mg/dL, triglycerides at 291 mg/dL (September) - Thyroid: Mildly elevated levels - Imaging: Last ultrasound negative for nephrolithiasis Plan The patient will continue on atorvastatin 40 mg daily to manage hypercholesterolemia, with a target LDL of less than 130 mg/dL and triglycerides less than 150 mg/dL. Her thyroid levels, which were noted to be mildly elevated, will be rechecked in the next follow-up. For her atrial fibrillation, she remains stable on Eliquis, and her renal function will be monitored regularly due to the anticoagulation therapy. The patient is reminded to schedule her mammogram and colon cancer screening, which are currently due. She will continue her current exercise regimen, adjusting for weather conditions, and will monitor her chest discomfort, reporting any changes in symptoms, especially if they become associated with exertion. Her cataracts will be monitored, and she will consider surgery when her symptoms significantly impact her daily activities. Patient was informed and verbally consented to the use of an ambient scribe for clinic note documentation during this visit. Discussion Notes During the visit, I discussed with the patient the importance of continuing her current medications, including atorvastatin and Eliquis, to manage her cholesterol and atrial fibrillation, respectively. We reviewed her recent lab results, noting the improvement in her cholesterol levels and the need to recheck her thyroid levels. I emphasized the importance of scheduling her overdue mammogram and colon cancer screening. We also discussed her exercise routine and the need to monitor her chest discomfort, advising her to report any changes, particularly if they occur with exertion. Finally, we talked about her cataracts and the potential for surgery when her symptoms become more bothersome. Patient Instructions - Continue taking atorvastatin and Eliquis as prescribed. - Schedule and complete your mammogram and colon cancer screening. - Monitor your chest discomfort and report any changes, especially if they occur with exertion. - Maintain your exercise routine, adjusting for weather conditions. - Consider cataract surgery when your vision significantly impacts daily activities. Orders: Orders Comprehensive Met. Panel 6 Months E78.00 - Pure hypercholesterolemia, unspecified Thyroid Stimulating Hormone 6 Months E78.00 - Pure hypercholesterolemia, unspecified Free T4 (Free Thyroxine) 6 Months E78.00 - Pure hypercholesterolemia, unspecified Lipid Panel 6 Months E78.00 - Pure hypercholesterolemia, unspecified Hemoglobin A1c 6 Months E78.00 - Pure hypercholesterolemia, unspecified Complete Blood Count Auto Diff 6 Months E78.00 - Pure hypercholesterolemia, unspecified Vitamin B12 and Folate 6 Months E78.00 - Pure hypercholesterolemia, unspecified Vitamin D 25-OH Total 6 Months E78.00 - Pure hypercholesterolemia, unspecified B Type Natriuretic Peptide 6 Months E78.00 - Pure hypercholesterolemia, unspecified UA CC w/rflx Micro + Cult 6 Months E78.00 - Pure hypercholesterolemia, unspecified, R30.0 - Dysuria Td Immunization Today Z23 - Encounter for immunization
[2024-11-13 09:13] VITALS: BP 112/60; PULSE 66; TEMP 36.3; O2SAT 96; BMI 24.0
--- OUTSIDE RECORDS SUMMARY | 2024-11-13 09:34 | XMS_ITS | Clinical Summary ---
Author Organization [facility] Address [address] [place] [address] Care Team Providers Care Count Team Member Name Role Phone Unavailable Primary [...]
== END 2024-11-13 09:46 | disposition home or self-care (01) ==
LOC: HO.HMCH 09:09
PROVIDERS: PCP Internal Medicine; Visit Provider Internal Medicine
DX: I48.0 Paroxysmal atrial fibrillation (principal); E78.00 Pure hypercholesterolemia, unspecified; R79.89 Other specified abnormal findings of blood chemistry; K21.9 Gastro-esophageal reflux disease without esophagitis; Z12.11 Encounter for screening for malignant neoplasm of colon; R31.29 Other microscopic hematuria; Z23 Encounter for immunization

== ENCOUNTER → 2024-11-13 09:08 | Outpatient (BNVA) | payer MEDICARE, SELFPAY | PROVIDERS: PCP Internal Medicine; Visit Provider Internal Medicine | DX: I48.0 Paroxysmal atrial fibrillation (principal); E78.00 Pure hypercholesterolemia, unspecified; R79.89 Other specified abnormal findings of blood chemistry; K21.9 Gastro-esophageal reflux disease without esophagitis; R31.29 Other microscopic hematuria; Z23 Encounter for immunization; Z79.01 Long term (current) use of anticoagulants | CPT/HCPCS: 90471; 90714; 99212 ==

== ENCOUNTER 2024-11-16 06:06 | Outpatient (REF) | payer MEDICARE, SELFPAY ==
--- OUTSIDE RECORDS SUMMARY | 2014-05-08 03:10 | XMS_ITS | Continuity of Care Document ---
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 Role Phone Zac OD OD, Yuliya Unavailable Unavai lable Medications Medication Instructions Dosage Effective Dates (start - stop) Status Comments Pred Forte 1 % eye drops,suspension instill 1 drop in operative eye QID starting AFTER surgery and continuing for 4 weeks - Active this can replace durezol or Lotemax Gel ofloxacin 0.3 % eye drops one drop in operative eye four times daily starting 3 days BEFORE surgery and continuing for 1 week AFTER surgery - Active this can repl tami besivance ketorolac 0.4 % eye drops instill one drop in operative eye QID starting 4 hours after surgery and continuing for 4 weeks AFTER surgery. - Active this can re place prolensa or Ilevro Procedures Procedure Date POSTOP FOLLOW-UP VISIT POSTOP FOLLOW-UP VISIT CATARACT SURG W/IOL, 1 STAGE OFFICE/OUTPATIENT VISIT, NEW OPHTHALMIC BIOMETRY OPHTHALMIC BIOMETRY VISUAL FUNCT STATUS ASSESS GDX Retina DILATED EXAM RIGHT EYE DILATED EXAM LEFT EYE DILAT MACUL+ EXAM DONE MACUL+ FNDNGS TO DR TURNER DM Advance Directives Directive Yes / No Effective Date File Name No Information Encounters Encounter Description Practice Location Reason(s) For Visit Diagnoses Date Provider Providers Copied on Encounter [facility], [address] [place] [address], [id number], tel:[phone] OPH CONSULT LEAH MARTINEZ dry eye OU (chief complaint) drops burning eyes OS (chief complaint) letters are jumping around OS (chief complaint) No Information 5 Zac OD Yuliya. [address], [address], [place], [place], [id number], [place]. tel:[phone] Referring Provider: Joey Guerrero, [address] [place] [address], [address] . tel:[phone] [facility], [address] [place] [address], [id number], tel:[phone] OPH CONSULT LEAH MARTINEZ blurry vision OU (chief complaint) No Information 5 Zac OD Yuliya. [address], [address], [place], [place], [id number], [place]. tel:[phone] Referring Provider: Yuliya Frank OD, [address], [place], [address] . tel:[phone] [facility], [address] [place] [address], [id number], tel:[phone] 47 [facility] No Information 5 Mark Cook. [address], [id number], [place]. tel:[phone] Referring Provider: Joey Guerrero, [address], [address] . tel:[phone] [facility], [address] [place] [address], [id number], tel:[phone] OPH CONSULT LEAH MARTINEZ No Information 5 Mark Cook. [address], [address], [place], [place], [id number], . tel:[phone] Referring Provider: Joey Guerrero, [address], [place], [address] . tel:[phone] OFFICE/OUTPA TIENT VISIT, NEW [facility], [address] [address], [place], [place], [id number], tel:[phone] OPH CONSULT LEAH MARTINEZ blurry vision (chief complaint) Glare (chief complaint) Distorted vision (chief complaint) Senile nuclear sclerosisTear film insufficiency, unspecifiedOthe r vitreous opacitiesDiabet es Mellitus Type 2, UncomplicatedMa cular puckering of retina 5 Mark Cook. [address], [address], [place], [place], [id number], . tel:[phone] Referring Provider: Joey Guerrero, [address], [place], [address] . tel:[phone] Family History Family Member Type Diagnosis Age At Onset No Information Payers Payer name Insurance type Covered republican ID Authoriza tion(s) No Information Social History Type Description Quantity Date Captured Comments Sex Female Smoking Status No Information Chief Complaint And Reason For Visit From encounter dated '05/08/2014 07:10'. dry eye OU (chief complaint) drops burning eyes OS (chief complaint) letters are jumping around OS (chief complaint) Reason For Referral Reason For Referral No Information History Of Present Illness Encounter Date Complaint History Of Prese nt Illness letters are jumping around lette rs are jumping around OS drops burning eyes drops burning eyes OS dry eye dry eye OU blurry vision blurry vision OU blurry vision The 63 year old female presents for evaluation of blurry vision in the left > right. It started about 1 year(s) ago. The onset was gradual. It affects OS > OD. The condition is stable. Pt reports vision is blurry ou, os worse.Newly dx of dm typw 2 bs 220, and A1c 12.00 Glare The patient is p resent for evaluation of Glare in the left > right. It started about 1 year(s) ago. The onset was gradual. It affects OS > OD. The symptom is constant. The condition is worsening. Pt reports increase in glare over the last years. OSMO [phone] Distorted vision The patient is present for evaluation of Distorted vision in the left eye. It started about 1 year(s) ago. The onset was gradual. It affects OS. The symptom is constant. The condition is stable. Pt reports images in OS shift directions, for example the leters on the chart would change directions.ABNL amsler os Functional Status Date Functional Assessmen t No Information Instructions Date Instruction Additional Infor anjelica Impression/Plan - Di scussed diagnosis in detail with patient. Patient instructed to use artificial tears as needed. Will continue to observe condition and or symptoms. Related to Tear film insufficiency, unspecified Impression/Plan - Di abetes type II: no background retinopathy, no signs of neovascularization noted. Discussed ocular and systemic benefits of blood sugar control. Related to Diabetes Mellitus Type 2, Uncomplicated Impression/Plan - Di scussed all risks, benefits, procedures and recovery. Patient understands changing glasses will not improve vision. Patient desires to have surgery, recommend phacoemulsification with intraocular lens.[facility])- Dr Seth -2.00 OS Related to Senile nuclear sclerosis Impression/Plan - Di scussed diagnosis in detail with patient. No treatment is required at this time. Will continue to observe condition and or symptoms. Related to Macular puckering of retina Impression/Plan - Di scussed diagnosis in detail with patient. Discussed signs and symptoms of PVD/floaters. Discussed signs and symptoms of retinal detachment. Will continue to observe condition and or symptoms. Educational materials provided:Flashers/floaters. Related to Other vitreous opacities Assessments Type Assessment Date No Information Patient Care Teams Name Effective Dates (start - stop) Status Members No Information
--- OUTSIDE RECORDS SUMMARY | 2024-11-16 06:08 | XMS_ITS | Clinical Summary ---
Author Organization [facility] Address [address] [place] [address] Care Team Providers Care Cream Dipper Name Role Phone Unavailable Primary Care Provider [...]
[2024-11-16 08:14] LABS: Anion Gap 13 (12-20); Blood Urea Nitrogen 8 mg/dL (9-16); Calcium 9.5 mg/dL (8.4-10.2); Carbon Dioxide 27 mmol/L (22-29); Chloride 105 mmol/L (96-108); Estimated Glomerular Filt Rate > 60; Potassium 4.2 mmol/L (3.3-5.1); Sodium 141 mmol/L (135-145)
[2024-11-16 09:01] LABS: Total Protein Urine Random < 7 mg/dL (<12)
== END 2024-11-16 06:07 | disposition home or self-care (01) ==
LOC: HO.LAB 06:06
PROVIDERS: PCP Internal Medicine; Visit Provider Internal Medicine Hypertension Specialist
DX: R31.29 Other microscopic hematuria (principal)
CPT/HCPCS: 36415; 80048; 82570; 84156

== ENCOUNTER 2024-11-20 09:13 | Outpatient (AMB) | payer BC, SELFPAY ==
--- OUTSIDE RECORDS SUMMARY | 2024-11-15 05:10 | XMS_ITS | Continuity of Care Document ---
Author Organization [address] [place] [address] Address [address] [facility] [address] [place] [address] Phone Care Team Providers Care Hammersmith Helper Name Role Phone María Garcia OD Unavailable Unavailable Allergies, Adverse Reactions, Alerts Substance Reaction Status Criticality No Known Allergies Active No Inform ation Medications Medication Instructions Dosage Effective Dates (start - stop) Status Comments Synjardy XR 25 mg-1,000 mg tablet, extended release - Active Basaglar KwikPen U-100 Insulin 100 unit/mL (3 mL) subcutaneous - Active aspirin 81 mg chewable tablet - Active atorvastatin 40 mg tablet - Active FeroSul 325 mg (65 mg iron) tablet - Active Fiasp FlexTouch U-100 Insulin 100 unit/mL (3 mL) subcutaneous pen - Active omega-3 fatty acids-fish oil 300 mg-1,000 mg capsule - Active gabapentin 300 mg capsule - Active glipizide 2.5 mg tablet - Ac tive levetiracetam 500 mg tablet - Active losartan 25 mg tablet - Acti ve omeprazole 40 mg capsule,delayed release - Active pioglitazone 30 mg tablet - Active sertraline 25 mg tablet - Ac tive cholecalciferol (vitamin D3) 25 mcg (1,000 unit) tablet - Active BD AutoShield Duo Pen Needle 30 gauge x 3/16 - Active Tresiba FlexTouch U-100 insulin 100 unit/mL (3 mL) subcutaneous pen - Active Trulicity 3 mg/0.5 mL subcutaneous pen injector - Active Vitamin D3 25 mcg (1,000 [...] Comments No Known Problems Procedures Procedure Date ECHO EXAM OF EYE THICKNESS SBSQ NF CARE MODERATE [facility] 30 FULL FIELD ERG W/I&R SBSQ NF CARE SF MDM 10 COMPRE OPH EXAM NEW PT 1/ Advance Directives Directive Yes / No Effective Date File Name No Information Encounters Encounter Description Practice Location Reason(s) For Visit Diagnoses Date Provider Providers Copied on Encounter SBSQ NF CARE MODERATE [facility] [address] [place] [address], [id number], tel:[phone] [facility] Blurry vision (chief complaint) Dry eyes (chief complaint) Endothelial corneal dystrophy, bilateralDermat ochalasis of unspecified eye, unspecified eyelidPresence of intraocular lens 5 [facility] Daniel. YSABEL. Referring Provider: Grace Ordoñez. SBSQ NF CARE SF 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 Referring Provider: Grace Ordoñez. [address] [place], [place] [address] [place], [place], [id number], [place] tel:[phone] [facility] Blurry vision (chief complaint) Diabetic eye exam (chief complaint) Age-related nuclear cataract, bilateralType 2 diabetes mellitus without complicationsCh anges in retinal vascular appearance, bilateralDermat ochalasis of unspecified eye, unspecified eyelidEndotheli al corneal dystrophy, bilateral 5 YSABEL Ceballos. Referring Provider: Grace Ordoñez. Family History Family Member Type Diagnosis Age At Onset No Information Payers Payer name Insurance type Covered green party ID Authoriza tion(s) Medicare [facility] [id number] Medicaid [facility] [id number] Social History Type Description Quantity Date Captured Comments Sex Female Smoking Status No Information Chief Complaint And Reason For Visit From encounter dated '11/15/2024 09:10'. Blurry vision (chief complaint). Description: The 74 year old patient presents for evaluation of Blurry vision in the right eye and left eye. The symptom is constant. The condition is mild. Patient denies: flashes. Dry eyes (chief complaint). Description: The patient is present for evaluation of Dry eyes in the right eye and left eye. The symptom is occasional. The condition is mild. Patient denies: eye pain. Reason For Referral Reason For Referral No Information Plan Of Treatment Date Type Action Status Appointment Renetta Quinn BOOKED History Of Present Illness Encounter Date Complaint History Of Prese nt Illness Dry eyes The patient is p resent for evaluation of Dry eyes in the right eye and left eye. The symptom is occasional. The condition is mild. Patient denies: eye pain. Blurry vision The 74 year old patient presents for evaluation of Blurry vision in the right eye and left eye. The symptom is constant. The condition is mild. Patient denies: flashes. ERG Blurry vision The 74 year old [...] n 6-9 months for dilated fundus exam. Impression/Plan - Im plants are clear and stable in both eyes Related to Presence of intraocular lens Impression/Plan - Monitor Relate d to Dermatochalasis of unspecified eye, unspecified eyelid Impression/Plan - MOnitor Relate d to Endothelial corneal dystrophy, bilateral [...] cataract, bilateral Assessments Type Assessment Date assessment Endothelial corneal dystrophy, b ilateral assessment Dermatochalasis of unspecified e ye, unspecified eyelid impression {oph_plan_.impression_dtls} impression {oph_plan_.impression_dtls} assessment Presence of intraocular lens Nov impression {oph_plan_.impression_dtls} Patient Care Teams Name Effective Dates (start - stop) Status Members No Information
[2024-11-20 09:25] VITALS: BP 112/62; PULSE 70; O2SAT 97; BMI 23.9
--- NOTE | 2024-11-20 09:25 | HO.NEPHOV_ITS ---
Vital Signs 11/20/24 09:25 Height 5 ft 3 in Weight 135 lb BMI 23.9 BP 112/62 Blood Pressure Location Rt brachial Position Sitting Pulse 70 Pulse Source Pulse Oximeter Pulse Oximetry (%) 97 Oxygen Delivery Method Room Air Intake Visit Reasons: Microscopic hematuria/ Conf Bonsai Tender Required: No Accompanied by: Self / Same As Patient Allergies No Known Allergies Allergy (Verified 11/20/24 09:30) Medication List - Last Reconciled 11/20/24 by Meet Rodriguez MD alendronate 70 mg PO QWEEK apixaban (Eliquis) 5 mg PO BID atorvastatin 40 mg PO DAILY 90 days loratadine (Claritin) 10 mg PO DAILY omeprazole 20 mg PO .everyother da HPI Comments Details: . 72-year-old woman with a history of atrial fibrillation anticoagulation. She would microscopic hematuria and underwent urological workup including cystoscopy which was unremarkable. During evaluation she was found to have my anemia of proteinuria and hence this evaluation. Renal function has been stable. 11/20/24 The patient is a 74-year-old female presenting with macroscopic hematuria. Urological evaluation showed normal findings, and recent lab tests were normal with no proteinuria. Mild unilateral leg edema is present without associated pain. Hyperlipidemia is managed with atorvastatin, and cholesterol levels have imp roved. Blood pressure remains low, and the patient is advised to monitor for any changes. MEDICATIONS: - Atorvastatin for hyperlipidemia - Blood thinner (unspecified) DIAGNOSTIC RESULTS: - Labs: Blood and urine tests normal, no proteinuria - Imaging: Ultrasound in September showed normal kidneys [facility] Medical History (Updated 11/13/24 @ 09:24 by Tiffany Hinson MD) TSH (thyroid-stimulating hormone deficiency) Osteoporosis Dizziness Hematuria Upper back pain on left side Chest discomfort Throat irritation Chest pain Abnormal screening mammogram GERD (gastroesophageal reflux disease) History of breast cancer Hypercholesterolemia Surgical History History of elbow surgery History of total abdominal hysterectomy and bilateral salpingo-oophorectomy Hx of total mastectomy of left breast Family History Father No problems noted. Mother Hypertension Stroke Maternal Grandmother Myocardial infarction Maternal Aunt Breast cancer Maternal Uncle Lung cancer Social History (Reviewed 11/20/24 @ 09:30 by TENA Bell Housing: House Alcohol intake: current Alcohol intake frequency: a few times a month Alcohol type: beer and wine Comment: once a week 1 drinks Patient Tobacco Use Status: Never used Tobacco e-Cigarette/Vaping Use: Never Used Second Hand Smoke Exposure: No service: No Current occupational status: retired Cognitive needs: No Hearing needs: No Vision needs: Yes (Glasses) Physical Exam Vital Signs: Last Vital Signs Pulse 70 11/20/24 09:25 BP 112/62 11/20/24 09:25 Pulse Ox 97 11/20/24 09:25 Oxygen Delivery Method Room Air 11/20/24 09:25 BMI result Body Mass Index 23.9 Const General: comfortable; No acute distress Orientation/consciousness: patient oriented x3 Eyes General: appearance normal, both eyes and all related structures Visual El: normal visual el by confrontation Neck Neck: Yes supple and Yes no JVD Resp Effort & Inspection: normal respiratory effort and respiratory effort not decreased Cardio Palpation: no palpable S3 and no palpable S4 Heart sounds: no rubs GI Inspection: Yes normal to inspection Palpation (GI): Soft to palpation Percussion: Yes normal to percussion Auscultation: normal bowel sounds General: Yes no CVA tenderness Back/Spine/Pelvis Back: no CVA tenderness Skin General skin exam: no petechiae and no purpura Neuro General: patient oriented x3 and no focal motor deficits Extrem General: No clubbing and No edema Results Reviewed Nephrology Results: Sodium, (135-145) 141 mmol/L 11/16/24 Potassium, (3.3-5.1) 4.2 mmol/L 11/16/24 Chloride, (96-108) 105 mmol/L 11/16/24 Carbon Dioxide, (22-29) 27 mmol/L 11/16/24 BUN, (9-16) 8 mg/dL L 11/16/24 Creatinine, (0.5-1.4) 0.85 mg/dL 11/16/24 Calcium, (8.4-10.2) 9.5 mg/dL 11/16/24 Urine Creatinine 69.07 mg/dL 11/16/24 Renal US 09/24/23 Assessment & Plan Assessment & Plan (1) Microscopic hematuria: Code(s): R31.29 - Other microscopic hematuria Category: Medical (2) Proteinuria: Code(s): R80.9 - Proteinuria, unspecified Category: Medical Plan .. Renetta is a 73-year-old woman with a history of minimal proteinuria by dipstick and microscopic hematuria with normal renal function. No proteinuria Creatinine at baseline USG unremarkable. I have not made any changes to her medications. Encouraged her to stand low-sodium diet increase fluid intake. No need for further work up at this time Follow up PRN Coding Level of Care Code Est Pt Level 4 (90874) Diagnoses Microscopic hematuria R31.29 Proteinuria R80.9
--- OUTSIDE RECORDS SUMMARY | 2024-11-20 09:42 | XMS_ITS | Clinical Summary ---
Author Organization [facility] Address [address] [place] [address] Care Team Providers Care Rim Fire Priming Tool Setter Name Role Phone Unavailable Primary Care Provider [...]
== END 2024-11-20 09:36 | disposition home or self-care (01) ==
LOC: HO.HKA 09:14
PROVIDERS: PCP Internal Medicine; Visit Provider Internal Medicine Hypertension Specialist
DX: R31.29 Other microscopic hematuria (principal); R80.9 Proteinuria, unspecified
CPT/HCPCS: 99214

== ENCOUNTER 2025-02-20 09:08 | Outpatient (AMB) | payer BC, SELFPAY ==
--- NOTE | 2025-02-20 09:32 | AM.OFFVISNUR ---
Intake Visit Reasons: Flu Shot Allergies No Known Allergies Allergy (Verified 11/20/24 09:30) Office Procedures Flu Questionnaire Does the patient have a severe egg allergy?: No Does the patient have severe life threatening allergies?: No Does the patient have a fever or illness today?: No Has the patient ever had Guillain-Frederic Syndrome?: No Has the patient ever had any past reaction to a flu shot?: No Immunizations Fluarix [id number] (PF) 45 mcg (15 mcg x 3)/0.5 mL IM syringe Performing Provider: Tiffany Hinson MD [facility] Administered by: Dona Flores LPN on 02/20/25 09:32 Dose Route Admin Location Dispensed Lot Number Expiration Date [facility] Review Consultant 0.5 mL IM Right Deltoid 0.5 mL [id number] 10/02/25 [id number] [employer] VIS Given Date VIS Provided VIS Publication Date 02/20/25 Single Vaccine 24 Eligibility Eligibility Date Funding Source Not [facility] Eligible 02/20/25 Private Assessment & Plan Assessment & Plan Orders: Orders Influenza [id number] Immunization Today Z23 - Encounter for immunization Coding
== END 2025-02-20 09:34 | disposition home or self-care (01) ==
LOC: HO.HMCH 09:09
PROVIDERS: PCP Internal Medicine; Visit Provider Internal Medicine
DX: Z23 Encounter for immunization (principal)

== ENCOUNTER → 2025-02-20 09:08 | Outpatient (BNVA) | payer BC, SELFPAY | PROVIDERS: PCP Internal Medicine; Visit Provider Internal Medicine | DX: Z23 Encounter for immunization (principal); R06.02 Shortness of breath; I48.0 Paroxysmal atrial fibrillation; I45.10 Unspecified right bundle-branch block | CPT/HCPCS: 90471; 90656; 93005; 99212 ==

== ENCOUNTER 2025-02-20 10:02 | Outpatient (AMB) | payer MEDICARE, SELFPAY ==
[2025-02-20 10:06] VITALS: BP 114/72; PULSE 68; BMI 24.2
--- NOTE | 2025-02-20 10:06 | A.OFFVIS_ITS ---
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 Overall she has been doing well but says over the last significant she has been noticing when she rushes up a flight of stairs or rushes to do something she gets short of breath. Sometimes associated with mild dull ache in her chest. However she also gets this precordial dull ache occasionally at rest after she had exerted herself. She also occasionally notices brief palpitation less last few sec about 2 or 3 times a month. No prolonged irregular heartbeat or palpitation. No bleeding issues or neurologic events. No lightheadedness, syncope. No orthopnea, PND, leg edema. [facility] Medical History TSH (thyroid-stimulating hormone deficiency) Osteoporosis Dizziness Hematuria Upper back pain on left side Chest discomfort Throat irritation Chest pain Abnormal screening mammogram GERD (gastroesophageal reflux disease) History of breast cancer Hypercholesterolemia Surgical History History of elbow surgery History of total abdominal hysterectomy and bilateral salpingo-oophorectomy Hx of total mastectomy of left breast Family History Father No problems noted. Mother Hypertension Stroke Maternal Grandmother Myocardial infarction Maternal Aunt Breast cancer Maternal Uncle Lung cancer Social History Housing: House Alcohol intake: current Alcohol intake frequency: a few times a month Alcohol type: beer and wine Comment: once a week 1 drinks Patient Tobacco Use Status: Never used Tobacco e-Cigarette/Vaping Use: Never Used Second Hand Smoke Exposure: No service: No Current occupational status: retired Cognitive needs: No Hearing needs: No Vision needs: Yes (Glasses) Review of Systems Const Denies chills, Denies fatigue, Denies fever(s), Denies frequent falls, Denies weakness, Denies weight gain and Denies weight loss ENT Denies dizziness Card Denies chest pain, Denies leg edema, Denies lightheadedness, Denies palpitations, Denies dyspnea, Denies dyspnea on exertion, Denies orthopnea and Denies other (loss of consciousness) Resp Denies cough, Denies dyspnea and Denies dyspnea on exertion GI Denies hematochezia and Denies change in stool character Musc Denies abnormal gait, Denies muscle weakness, Denies numbness, Denies radiating pain into limb and Denies tingling Neuro Denies Abnormal speech present, Denies abnormal gait, Denies dizziness, Denies frequent falls, Denies numbness, Denies tingling and Denies weakness Endo Denies fatigue and Denies palpitations Physical Exam Vital Signs: Last Vital Signs Pulse 68 02/20/25 10:06 BP 114/72 02/20/25 10:06 BMI result Body Mass Index 24.2 Const General: cooperative, comfortable, no acute distress, well developed, alert, awake and Physically active Nutritional Appearance: well nourished and thin Orientation/consciousness: patient oriented x3 Limitations: no limitations HEENT Head: Yes normocephalic and Yes atraumatic Neck Neck: Yes trachea midline, Yes supple and Yes no JVD Resp Effort & Inspection: normal respiratory effort Auscultation: clear to auscultation bilaterally Cardio Jugular venous distension: no JVD Palpation: normal PMI Rate: regular rate Rhythm: regular rhythm Heart sounds: S1 normal heart sound present, S2 normal heart sound present, no click, no gallops, no murmurs and no rubs GI Auscultation: normal bowel sounds Skin General skin exam: no rashes or lesions noted Neuro General: patient oriented x3 and no focal motor deficits Speech: No Abnormal speech present Extrem General: Yes no clubbing, cyanosis or edema Psych Appearance: grossly normal Office Procedures EKG Details: EKG shows normal sinus rhythm with small amplitude P waves with right bundle- branch block 91824-[id number], Complete Assessment & Plan Assessment & Plan (1) SOB (shortness of breath) on exertion: Code(s): R06.02 - Shortness of breath Category: Medical Plan: Shortness of breath on exertion in his elderly woman which she is noticing more recently with exertion as well as when she tries to do something fast associated with mild dull ache in his precordial area. Given her risk factors I would be concerned about obstructive coronary artery disease. Discussed with her. Will suggest exercise myocardial perfusion imaging to assess for the same. Also suggest an echocardiogram to evaluate for will cardiac structure and function as well as regional wall motion abnormality and valvular abnormalities. These tests will be scheduled in near future which will guide further treatment or workup. (2) Paroxysmal atrial fibrillation: Code(s): I48.0 - Paroxysmal atrial fibrillation Category: Medical Plan: Paroxysmal atrial fibrillation which has remained suppressed with brief episodes of palpitation which may represent PACs or short episodes of atrial runs. Symptoms are infrequent and very brief and would not change her medical therapy. Advised to call me if her symptoms are worse. I would suggest to continue Eliquis uninterrupted for rest of her life. This was discussed with her. She understands and agrees. Semi annual renal function test should be pursued. Avoidance of stimulants was discussed. Will follow up in the clinic in 1 year's time, sooner PRN. Thank you for allowing me to partake in her care Orders: Orders CA stress test Today R06.02 - Shortness of breath NM cardiolite stress test 2 Weeks R06.02 - Shortness of breath, R07.9 - Chest pain, unspecified CA echo transthoracic complete Today R06.02 - Shortness of breath Coding Level of Care Code Est Pt Level 4 (23771) Complex EM visit Add On G2211 Diagnoses SOB (shortness of breath) on exertion R06.02 Paroxysmal atrial fibrillation I48.0 CPT Codes EKG - CPT: 78704-[id number], Complete ([id number])
== END 2025-02-20 10:32 | disposition home or self-care (01) ==
LOC: HO.HCS 10:03
PROVIDERS: PCP Internal Medicine; Visit Provider Internal Medicine Cardiovascular Disease
DX: R06.02 Shortness of breath (principal); I48.0 Paroxysmal atrial fibrillation
CPT/HCPCS: 93010; 99214; G2211

== ENCOUNTER → 2025-03-23 07:58 | Outpatient (REF) | payer MEDICARE, SELFPAY ==
--- NOTE | 2025-03-23 08:00 | CA_ITS ---
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 The visually estimated ejection fraction is between 55-60%. - Normal left ventricular filling pressures. - Normal right ventricular cavity size and systolic function. - There is mild aortic valve regurgitation. Findings Procedure Information The study quality is limited by the patients inability to tolerate the test. Left Ventricle Normal left ventricular size, thickness, systolic function, and wall motion. The visually estimated ejection fraction is between 55-60%. Abnormal diastolic function is noted. Spectral Doppler is indicative of an impaired relaxation filling pattern. Normal left ventricular filling pressures. Right Ventricle Normal right ventricular cavity size and systolic function. Atria The left atrium is normal in size. The right atrium is normal in size. Aortic Valve There is a normal trileaflet aortic valve. There is mild calcification of the aortic valve. There is no aortic valve stenosis. There is mild aortic valve regurgitation. Mitral Valve The mitral valve appears normal. There is no mitral valve regurgitation. There is no mitral valve stenosis. Pulmonic Valve The pulmonic valve is likely normal. Tricuspid Valve Normal tricuspid valve structure. There is no tricuspid valve regurgitation. The right ventricular systolic pressure is 19 mmHg. Normal right atrial pressure. There is no evidence of pulmonary hypertension. Great Vessels All visible segments of the aorta are normal in size. Venous The inferior vena cava is dilated and collapses greater than 50% with inspiration. Pericardium/Pleural There is no evidence of pericardial effusion. Prior Study Comparison No significant change compared to prior study dated: 07/05/2023. Measurements 2D Linear Measurements IVSd: 0.96 0.6-0.9/0.6-1.0 cm LVIDd: 3.52 3.9-5.3/4.2-5.9 cm LVIDd Index: 2.15 2.4-3.2/2.2-3.1 cm/m2 LVIDs: 2.37 2.0-3.6 cm LVPWd: 0.88 0.7-1.1 cm LA Diam: 2.60 2.7-3.8/3.0-4.0 cm LAIDs Index: 1.59 1.5-2.3 cm/m2 LV Mass: 115.24 67-162/88-224 g LV Mass Index: 70.27 43-95/49-115 g/m2 LVOT Diam: 2.00 3.0+(-)1.3 cm 2D Systolic Function EF 4C: 56.60 >55% EF 2C: 62.40 >55% EF BiP: 59.40 >55% Mitral Valve MV Pk E: 0.55 MV PK A: 0.62 MV Decel Time: 221.00 E/A: 0.90 E'Lateral: 9.36 E'Medial: 7.40 E/E' Med: 7.50 E/E' Lat: 5.90 PHT: 65.00 MVA PHT: 3.38 Decel [place]: 2.50 Aortic Valve AoV Pk Massimo: 1.34 AoV Mn Massimo: 0.92 AoV VTI: 0.27 AoV Pk Grad: 7.00 Aov Mn Grad: 4.00 ANIKET Cont.VTI: 2.93 LVOT LVOT Pk Massimo: 1.08 LVOT Mn Massimo: 0.70 LVOT VTI: 0.25 LVOT Pk Grad: 5.00 LVOT Mn Grad: 2.00 LVOT Diam: 2.00 LVOT Area: 3.14 Diastolic Function MV Pk E: 0.55 MV Pk A: 0.62 E/A: 0.90 E'Medial: 7.40 E/E' Med: 7.50 E' Laterial: 9.36 E/E' Lat: 5.90 Tricuspid Valve TR Pk Massimo: 2.02 TR Pk Grad: 16.00 RA Press: 3.00 RVSP: 19.00 Great Vessels Aorta Sinus of Valsalva: 3.79 2.0-3.5 cm Ao Asc: 3.70 2.1-3.4 cm Ao Arch: 2.80 Updated in Other Vendor System with Status of Final Dylan Clinton MD electronically signed on 03/25/2025 9:33:28 PM with status of Final
--- OUTSIDE RECORDS SUMMARY | 2025-03-23 08:00 | XMS_ITS | Clinical Summary ---
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
== END ==
LOC: HO.CARD 07:58
PROVIDERS: PCP Internal Medicine; Visit Provider Internal Medicine Cardiovascular Disease
DX: R06.02 Shortness of breath (principal)
CPT/HCPCS: 93306

== ENCOUNTER → 2025-03-23 08:00 | Outpatient (BNV) | payer MEDICARE, SELFPAY | PROVIDERS: PCP Internal Medicine; Visit Provider Internal Medicine Cardiovascular Disease | DX: I35.1 Nonrheumatic aortic (valve) insufficiency (principal) | CPT/HCPCS: 93306 ==

== ENCOUNTER → 2025-03-30 07:47 | Outpatient (REF) | payer MEDICARE, SELFPAY ==
--- NOTE | ~2025-03-30 | NM_ITS ---
EXERCISE MYOCARDIAL PERFUSION STUDY INDICATION: Shortness of breath, atrial fibrillation TECHNIQUE: The patient was brought in for an exercise perfusion study on 03/30/2025. Patient performed exercise as per August protocol and was injected 25 mCi of sestamibi once target heart rate was achieved. Images were obtained using the SPECT gamma camera interlaced with the gating device. Images were obtained in supine position. Resting perfusion study was performed on 04/02/2025. Patient was administered 25 mCi of sestamibi intravenously at rest. Images were then obtained in supine position. Total DLP 53 mGy-cm. Images were processed with the software and compared side to side in short axis, horizontal long axis and vertical long axis views. FINDINGS: Raw aquisition reviewed. The stress perfusion study showed diminished tracer uptake along the inferior wall. There is improvement with CT attenuation correction and hence suggestive of diaphragmatic attenuation artifact. The gated study shows normal LV systolic function with calculated LVEF of 70%. LV cavity is normal in size. The gated study shows normal wall thickening and contraction of segments. Resting study shows diminished tracer uptake along the inferior wall. Attenuation corrected images are suboptimal. Gating at rest reveals normal wall motion with ejection fraction at 71%. The findings are consistent with fixed inferior perfusion defect probably artifactual. NM/NM cardiolite stress test IMPRESSION: 1. Myocardial perfusion imaging study shows probably normal myocardial perfusion. 2. Gated LVEF is 70% during stress and 71% during rest. 3. Transient ischemic dilatation not present. EKG component of the test reported separately. Electronically signed by: Hero Fuentes MD 04/03/2025 04:27 PM [facility]
--- NOTE | 2025-03-30 07:49 | CA_ITS ---
Acquisition Time: 2025-03-30 08:00:22 Total Exercise Time: 00:05:00 Test Indications: Dyspnea CP AFIB Medications: ELIQUIS ATORVASTATIN LORATADINE OMEPRAZOLE ALENDRONATE Protocol: MARVIN Max HR: 142 BPM 98% of Pred: 144 BPM Max BP: 128/70 mmHG Max Work Load: 4.6 METS Exercise stress test with exercise 5 mins of Marvin Protocol held at Stage 1, achieving 97% MPHR, with reports of SOB, no chest pain, with reports of dizziness towards the end of exercise- BP dropped to 80/60 that improved quicklt upon sitting down. Without any arrythmias, with normotensive response to exercise. Without any EKG changes meeting criteria for ischemia. In recovery, symptoms resolved and pt feeling back to baseline. Nuclear images pending. Test reviewed with Dr. Mckinney. Referred By: Gregory Mckinney Electronically Signed By: Thony Moon
--- OUTSIDE RECORDS SUMMARY | 2025-03-30 07:49 | XMS_ITS | Clinical Summary ---
Author Organization [facility] Address [address] [place] [address] Care Team Providers Care Electric Vehicle Electrician Name Role Phone Unavailable Primary Care Provider [...]
== END ==
LOC: HO.CARD 07:47
PROVIDERS: PCP Internal Medicine; Visit Provider Internal Medicine Cardiovascular Disease
DX: R07.9 Chest pain, unspecified (principal); R06.02 Shortness of breath
CPT/HCPCS: 78452; 93017; A9500

== ENCOUNTER → 2025-03-30 07:49 | Outpatient (BNV) | payer MEDICARE, SELFPAY | PROVIDERS: PCP Internal Medicine | DX: R07.9 Chest pain, unspecified (principal) | CPT/HCPCS: 78452; 93016; 93018 ==